=== PATIENT | female | born 1990 | race African-American/Black ===

== ENCOUNTER 2017-01-26 11:52 | Inpatient (IN) | payer OTHER ==
[~2017-01-26] VITALS: Ht 165.1 cm; Wt 86.2 kg
--- NOTE | 2017-01-26 12:38 | Emergency Room Report ---
History of Present Illness General Chief Complaint: Skin Rash/Abscess Source: Patient Present Illness [facility] The patient is a 26-year-old female with a 10 year history of hidradenitis superacute the presenting for the same complaint. The patient was seen by Dr. Cantu and told to come to the ER in order to obtain pre-op evaluation for tomorrow's surgery. The patient does admit to a clear to yellow discharge from multiple areas including both underarms, groin, and rectum. She denies any pain at this time. She denies any other symptoms including N, V, F, chills, BETH , dizziness, abdominal pain, CP, SOB, dysuria, hematuria, diarrhea, constipation Allergies: Coded Allergies: No Known Allergies (Unverified , 01/26/17) Patient History Past Medical History: see triage record Pertinent Family History: none Last Menstrual Period: 01/12/17 Now: No Reviewed Nursing Documentation: PMH: Agreed, PSxH: Agreed Review of Systems All Other Systems: negative except mentioned in HPI Physical Exam Vital Signs Date Time Temp Pulse Resp B/P Pulse Ox O2 Delivery O2 Flow Rate FiO2 01/26/17 12:02 98.4 88 15 101/62 100 Room Air Sp02 EP Interpretation: reviewed, normal General Appearance: no apparent distress, alert, GCS 15, non-toxic Head: normocephalic, atraumatic Eyes: bilateral eye PERRL, bilateral eye normal inspection ENT: hearing grossly normal, normal pharynx, no angioedema, normal voice Neck: full range of motion, supple/symm/no masses Respiratory: chest non-tender, lungs clear, normal breath sounds, no wheezing, speaking full sentences Cardiovascular #1: regular rate, rhythm, no edema Gastrointestinal: normal bowel sounds, non tender, soft, non-distended, no guarding, no rebound Rectal: other - multiple tender nodules with clear to yellow drainage Genitourinary: no CVA tenderness, other - External vaginal swelling with multiple tender nodules surrounded by erythema Musculoskeletal: back normal, gait/station normal, normal range of motion, non- tender Neurologic: alert, oriented x3, responsive, motor strength/tone normal, sensory intact, normal gait, speech normal Psychiatric: judgement/insight normal, memory normal, mood/affect normal, no suicidal/homicidal ideation Skin: normal turgor, rash - multiple tender nodules surrounded by erythema with clear to yellow drainage of bilat axilla, L breast, inguinal region, and dee-anal region Medical Decision Making PA Attestation Dr. Cassidy is my supervising physician. Patient management was discussed with my supervising physician Diagnostic Impression: Primary Impression: Hidradenitis suppurativa ER Course The patient is a 26-year-old female presenting for hydradenitis suppurativa Ddx considered include but not limited to hydradenitis suppurativa, abscess, cellulitis PE: vitals WNL. NAD multiple tender nodules surrounded by erythema with clear to yellow drainage of bilat axilla, L breast, inguinal region, and dee-anal region Dr. Cassidy has spoken with Dr. Charles who will be admitting this patient. Labs have been ordered including CBC, CMP, coags, type and screen. All unremarkable. Blood cultures pending. She is started on ancef in the ER She will NPO at midnight. She is now complaining of lower back and leg pain due to sciatica. She is given morphine and feels better. She will be admitted in stable condition. EKG Diagnostic Results Rate: normal Rhythm: NSR ST Segments: no acute changes ASA given to the pt in ED: No PA Scribe Text EKG was reviewed and read with my supervising physician. No acute ST segment changes are seen. Normal rate and rhythm. No acute changes. Chest X-Ray Diagnostic Results EP Interpretation: Yes Findings: no consolidation, no effusion, no pneumothorax, no acute cardiopulmonary disease Number of Views: 1 PA Scribe Text I am acting as scribe for my supervising physician. My supervising physician's interpretation of the chest xrays are there is no consolidation, no effusion, no acute cardiopulmonary disease, no pneumothorax Last Vital Signs Date Time Temp Pulse Resp B/P Pulse Ox O2 Delivery O2 Flow Rate FiO2 01/26/17 12:02 98.4 88 15 101/62 100 Room Air Status: improved Disposition: ADMITTED INPATIENT Condition: Stable PATTI FROST Jan 26, 2017 12:38
[2017-01-26 13:02] LABS: BASOPHILS % (AUTO) 0.7 % (0.0-2.0); EOSINOPHILS % (AUTO) 0.4 % (0.0-3.0); MEAN CORPUSCULAR HEMOGLOBIN 27.2 PG (27.0-31.0); MEAN CORPUSCULAR HGB CONC 32.7 G/DL (32.0-36.0); MEAN CORPUSCULAR VOLUME 83 FL (80-99); MEAN PLATELET VOLUME 7.2 FL (6.5-10.1); NEUTROPHILS % (AUTO) 73.8 % (45.0-75.0); PLATELET COUNT 357 K/UL (150-450); RED BLOOD COUNT 4.85 M/UL (4.20-5.40); RED CELL DISTRIBUTION WIDTH 13.4 % (11.6-14.8); WHITE BLOOD COUNT 10.6 K/UL (4.8-10.8)
[2017-01-26 13:04] LABS: APPEARANCE,URINE SLIGHTLY CLOUDY; KETONES,URINE 1+ (NEGATIVE); LEUKOCYTE ESTERASE ,URINE 1+ (NEGATIVE); NITRITE,URINE NEGATIVE (NEGATIVE); PH,URINE 6 (4.5-8.0); PROTEIN,URINE 1+ (NEGATIVE); UROBILINOGEN,URINE 1 MG/DL (0.0-1.0)
[2017-01-26 13:11] LABS: PROTHROMBIN TIME 10.7 SEC (9.30-11.50)
[2017-01-26 13:16] LABS: BACTERIA,URINE FEW /HPF; SQUAMOUS EPITHELIAL CELL,UR MODERATE /LPF (NONE/OCC)
[2017-01-26 13:20] LABS: ALANINE AMINOTRANSFERASE 10 U/L (3-33); ANION GAP 16 (5-15); ASPARTATE AMINO TRANSFERASE 14 U/L (5-40); CALCIUM 10.2 mg/dL (8.6-10.2); CARBON DIOXIDE 26 mEQ/L (20-30); CHLORIDE 97 mEQ/L (98-107); CREATININE 0.8 mg/dL (0.5-0.9); GLOMERULAR FILTRATION RATE > 60 mL/min (>60); HEMOLYSIS 0; POTASSIUM 3.3 mEQ/L (3.4-4.9); SODIUM 139 mEQ/L (135-145)
[2017-01-26] MEDS ORDERED: Morphine Sulfate 4mg/ml Inj IVP ONE ×2 (13:45→16:00)
--- NOTE | 2017-01-26 13:57 | Diagnostic Imaging Report ---
Indication: Cough Technique: One view of the chest Comparison: none Findings: Lungs and pleural spaces are clear. Heart size is normal. Impression: No acute process
[2017-01-26] MEDS ORDERED: ceFAZolin sod 1 GM in D5W 55 ML IVPB SCH (14:00)
[2017-01-26 15:44] VITALS: BP 99/54
[2017-01-26] MEDS ORDERED: LORazepam Inj 2mg/ml 1ml IV PRN (17:15)
[2017-01-26] MEDS ORDERED: Morphine Sulfate 2mg/ml Inj IVP PRN (17:15)
[2017-01-26] MEDS ORDERED: Miralax 17gm pkt ORAL PRN (17:15)
[2017-01-26] MEDS ORDERED: Mylanta II UD 30ml ORAL PRN (17:15)
[2017-01-26] MEDS ORDERED: Morphine Sulfate 4mg/ml Inj IVP PRN (17:15)
[2017-01-26] MEDS ORDERED: Milk of Magnesia 30ml Ud ORAL PRN (17:15)
--- NOTE | 2017-01-26 17:42 | History and Physical ---
History of Present Illness General Date patient seen: Jan 26, 2017 Time patient seen: 17:38 Reason for Hospitalization: Skin Rash/Abscess Present Illness HPI 26 y/o female with hx of hidradenitis, s/p previous surgery. Pt has multiple abscess in the bilateral axillae and groin region. She has tried multiple PO abx and pain meds and has not been able to get much relief, she presents to the ER due to intractable pain. No fevers/chills. She is able to exercise, without any chest pain or dyspnea, no other medical conditions, no chronic medications. Allergies: Coded Allergies: No Known Allergies (Unverified , 01/26/17) Patient History History Provided By: Patient Healthcare decision maker Resuscitation status Advanced Directive on File Family History Family History: Patient reports no known family medical history. Social History Social History: (1) No significant social history Review of Systems ROS Narrative CONSTITUTIONAL: No weight loss, fever, chills, weakness or fatigue. HEENT: Eyes: No visual loss, blurred vision, double vision or yellow sclerae. Ears, Nose, Throat: No hearing loss, sneezing, congestion, runny nose or sore throat. SKIN: No rash or itching. CARDIOVASCULAR: No chest pain, chest pressure or chest discomfort. No palpitations or edema. RESPIRATORY: No shortness of breath, cough or sputum. GASTROINTESTINAL: No anorexia, nausea, vomiting or diarrhea. No abdominal pain or blood. NEUROLOGICAL: No headache, dizziness, syncope, paralysis, ataxia, numbness or tingling in the extremities. No change in bowel or bladder control. MUSCULOSKELETAL: + axillary pain bilateral and +groin pain HEMATOLOGIC: No anemia, bleeding or bruising. LYMPHATICS: No enlarged nodes. No history of splenectomy. PSYCHIATRIC: No history of depression or anxiety. ENDOCRINOLOGIC: No reports of sweating, cold or heat intolerance. No polyuria or polydipsia. ALLERGIES: No history of asthma, hives, eczema or rhinitis. Physical Exam Physical Exam Narrative General: alert, cooperative, no distress, appears stated age Head: normocephalic, without obvious abnormality, atraumatic Eyes: conjunctivae/corneas clear. PERRL, EOM's intact Throat: lips, mucosa, and tongue normal. MMM Neck: supple, symmetrical, trachea midline, and no JVD Lungs: clear to auscultation bilaterally Heart: regular rate and rhythm, S1, S2 normal, no murmur, click, rub or gallop Abdomen: soft, non-tender, non-distended, bowel sounds normal; no masses or organomegaly Extremities: + induration, +tenderness to palpation, +gross lesions bilateral axillae Pulses: 2+ and symmetric Skin: skin color, texture, turgor normal; no rashes or lesions Neurologic: grossly normal, no focal deficits Last 24 Hour Vital Signs Date Time Temp Pulse Resp B/P Pulse Ox O2 Delivery O2 Flow Rate FiO2 01/26/17 15:44 97.8 78 14 99/54 98 Room Air 01/26/17 14:12 98.4 01/26/17 12:02 98.4 88 15 101/62 100 Room Air Laboratory Tests Test 01/26/17 12:37 01/26/17 12:41 White Blood Count 10.6 K/UL (4.8-10.8) Red Blood Count 4.85 M/UL (4.20-5.40) Hemoglobin 13.2 G/DL (12.0-16.0) Hematocrit 40.4 % (37.0-47.0) Mean Corpuscular Volume 83 FL (80-99) Mean Corpuscular Hemoglobin 27.2 PG (27.0-31.0) Mean Corpuscular Hemoglobin Concent 32.7 G/DL (32.0-36.0) Red Cell Distribution Width 13.4 % (11.6-14.8) Platelet Count 357 K/UL (150-450) Mean Platelet Volume 7.2 FL (6.5-10.1) Neutrophils (%) (Auto) 73.8 % (45.0-75.0) Lymphocytes (%) (Auto) 20.0 % (20.0-45.0) Monocytes (%) (Auto) 5.0 % (1.0-10.0) Eosinophils (%) (Auto) 0.4 % (0.0-3.0) Basophils (%) (Auto) 0.7 % (0.0-2.0) Prothrombin Time 10.7 SEC (9.30-11.50) Prothromb Time International Ratio 1.0 (0.9-1.1) Activated Partial Thromboplast Time 32 SEC (23-33) Sodium Level 139 mEQ/L (135-145) Potassium Level 3.3 mEQ/L (3.4-4.9) L Chloride Level 97 mEQ/L (98-107) L Carbon Dioxide Level 26 mEQ/L (20-30) Anion Gap 16 (5-15) H Blood Urea Nitrogen 5 mg/dL (7-23) L Creatinine 0.8 mg/dL (0.5-0.9) Estimat Glomerular Filtration Rate > 60 mL/min (>60) Glucose Level 95 mg/dL (74-106) Calcium Level 10.2 mg/dL (8.6-10.2) Total Bilirubin 0.4 mg/dL (0.0-1.2) Aspartate Amino Transf (AST/SGOT) 14 U/L (5-40) Alanine Aminotransferase (ALT/SGPT) 10 U/L (3-33) Alkaline Phosphatase 86 U/L (35-104) Total Protein 9.0 g/dL (6.6-8.7) H Albumin 4.5 g/dL (3.5-5.2) Globulin 4.5 g/dL Albumin/Globulin Ratio 1.0 (1.0-2.7) Urine Color Yellow Urine Appearance Slightly cloudy Urine pH 6 (4.5-8.0) Urine Specific [place] 1.025 (1.005-1.035) Urine Protein 1+ (NEGATIVE) H Urine Glucose (UA) Negative (NEGATIVE) Urine Ketones 1+ (NEGATIVE) H Urine Occult Blood 3+ (NEGATIVE) H Urine Nitrite Negative (NEGATIVE) Urine Bilirubin Negative (NEGATIVE) Urine Urobilinogen 1 MG/DL (0.0-1.0) H Urine Leukocyte Esterase 1+ (NEGATIVE) H Urine RBC 5-10 /HPF (0 - 2) H Urine WBC 2-4 /HPF (0 - 2) Urine Squamous Epithelial Cells Moderate /LPF (NONE/OCC) H Urine Bacteria Few /HPF (NONE) Urine HCG, Qualitative Negative Height (Feet): 5 Height (Inches): 7.00 Weight (Pounds): 190 Medications Current Medications Medications (Trade) Dose Ordered Sig/Eduarda Route PRN Reason Start Time Stop Time Status Last Admin Dose Admin Acetaminophen (Tylenol) 650 mg Q4H PRN ORAL Mild Pain (Pain Scale 1-3) 01/26/17 17:15 02/25/17 17:14 UNV Acetaminophen (Tylenol) 650 mg Q4H PRN ORAL fever 01/26/17 17:15 02/25/17 17:14 UNV Al Hydroxide/Mg Hydroxide (Mylanta II) 30 ml Q6H PRN ORAL dyspepsia 01/26/17 17:15 02/25/17 17:14 UNV Bisacodyl (Dulcolax) 10 mg HSPRN PRN RECTAL Constipation 01/26/17 17:15 02/25/17 17:14 UNV Cefazolin Sodium (Ancef) 1 gm Q8HR IVP 01/26/17 22:00 02/02/17 21:59 UNV Cefazolin Sodium 1 gm/Dextrose 55 ml @ 110 mls/hr Q8HR IVPB 01/26/17 14:00 02/02/17 13:59 01/26/17 13:07 Dextrose (Dextrose 50%) STAT PRN IV Hypoglycemia 01/26/17 17:15 02/25/17 17:14 UNV Dextrose/Sodium Chloride (D5ns) 1,000 ml @ 50 mls/hr Q20H IV 01/26/17 18:02 02/25/17 18:01 UNV Diphenhydramine HCl (Benadryl) 25 mg Q6H PRN ORAL Itching/Pruritis 01/26/17 17:15 02/25/17 17:14 UNV Docusate Sodium (Colace) 100 mg EVERY 12 HOURS ORAL 01/26/17 21:00 02/25/17 20:59 UNV Lorazepam (Ativan 2mg/ml 1ml) 0.5 mg Q4H PRN IV For Anxiety 01/26/17 17:15 02/02/17 17:14 UNV Magnesium Hydroxide (Mom) 30 ml HSPRN PRN ORAL Constipation 01/26/17 17:15 02/25/17 17:14 UNV Morphine Sulfate (Morphine Sulfate) 2 mg Q4HR PRN IVP Moderate Pain (Pain Scale 4-6) 01/26/17 17:15 02/02/17 17:14 UNV Morphine Sulfate (Morphine Sulfate) 4 mg Q4HR PRN IVP Severe Pain (Pain Scale 7-10) 01/26/17 17:15 02/02/17 17:14 UNV Ondansetron HCl (Zofran) 4 mg Q6H PRN IVP Nausea & Vomiting 01/26/17 17:15 02/25/17 17:14 UNV Polyethylene Glycol (Miralax) 17 gm HSPRN PRN ORAL Constipation 01/26/17 17:15 02/25/17 17:14 UNV Temazepam (Restoril) 15 mg HSPRN PRN ORAL Insomnia 01/26/17 17:15 02/02/17 17:14 UNV Assessment/Plan Problem List: (1) Abscess Assessment & Plan: Admit to inpatient Check blood cx Start IV abx Pain control Supp care If patient is required to have surgery, based on the patient's medical history, and other available ancillary data, the patient is a LOW risk for an INTERMEDIATE risk procedure. Per the most recent ACC/AHA guidelines, the patient does not need any further cardiopulmonary testing prior to the procedure and there do not appear to be any clear medical contraindications to proceeding with the proposed procedure. A total of 32 mins of additional time was spent with this patient, care coordination and counseling, in addition to the face to face time with the patient. ICD Codes: L02.91 - Cutaneous abscess, unspecified SNOMED: [id number] GADIEL BLOCK Jan 26, 2017 17:42
[2017-01-26] MEDS ORDERED: NKM (17:45)
[2017-01-26 18:00] VITALS: BP 123/68
[2017-01-26] MEDS: D5NS 1,000 ML IV SCH (19:00)
[2017-01-26] MEDS: Docusate 100mg cap ORAL SCH (21:46)
[2017-01-26] MEDS: ceFAZolin 1gm in D5W 55ml IVPB SCH (22:00)
[2017-01-27] VITALS (14 sets, daily range): BP systolic 108–150; BP diastolic 50–74
[2017-01-27] MEDS: ceFAZolin 1gm in D5W 55ml IVPB SCH (06:27)
[2017-01-27] MEDS ORDERED: Lidocaine 1% 10mg/ml/Epi 0.005mg/ml 30ml vial INJ ONE (06:43)
[2017-01-27] MEDS ORDERED: Bacitracin 50000 Units Vial ONE (06:43)
[2017-01-27] MEDS ORDERED: EPINEPHrine 1mg/1ml Amp ONE (06:43)
--- NOTE | 2017-01-27 06:43 | Pre-Procedure Note/Attestation ---
Pre-Procedure Note/Attestation Complete Prior to Procedure Planned Procedure: bilateral Procedure Narrative: Bilateral axillary and right breast debridement with flap elevation Attestation I attest that I discussed the nature of the procedure; its benefits; risks and complications; and alternatives (and the risks and benefits of such alternatives ), prior to the procedure, with the patient (or the patient's legal customer assistance representative). I attest that, if there was a reasonable possibility of needing a blood transfusion, the patient (or the patient's legal customer assistance representative) was given the [facility] standardized written summary, pursuant to the [place] Blood Safety Act ([place] Health and Safety Code # 1645, as amended). I attest that I re-evaluated the patient just prior to the surgery and that there has been no change in the patient's H&P, except as documented below: SADAF HICKS Jan 27, 2017 06:43
--- NOTE | 2017-01-27 06:44 | Operative Note - PDOC ---
Operative Note Operative Note Pre-op Diagnosis: Bilateral infected axillary and right breast masses Surgeon: Pepe Sand Bobber: Tyrone Anesthesia: general Specimen: yes Complications: none Condition: stable Estimated Blood Loss: minimal Implant(s) used?: No SADAF HICKS Jan 27, 2017 06:44
[2017-01-27] MEDS ORDERED: Metoclopramide 10mg/2ml Inj IVP PRN ×2 (06:45→08:15)
[2017-01-27] MEDS ORDERED: PCA HYDROmorphone 1mg/ml 30 ML IV PRN (06:45)
[2017-01-27] MEDS ORDERED: Zolpidem 5mg tab ORAL PRN (06:45)
[2017-01-27] MEDS ORDERED: Rate Change PCA 1 Each MISC PRN (06:45)
[2017-01-27] MEDS ORDERED: Propofol 10mg/ml 20ml IV ONE (07:00)
[2017-01-27] MEDS ORDERED: NS Irrig 1000ml ONE (07:00)
[2017-01-27] MEDS ORDERED: Nimbex 2mg/ml Inj 10ML IVP ONE (07:00)
[2017-01-27] MEDS ORDERED: Sterile Water Irrig 1000ml IRRIG ONE (07:00)
[2017-01-27] MEDS ORDERED: Morphine Sulfate 10mg/ml Inj ONE (07:00)
[2017-01-27] MEDS ORDERED: Succinylcholine 20mg/ml 10ml vial ONE (07:00)
[2017-01-27] MEDS: PCA shift volume MISC SCH ×2 (07:00→19:18)
[2017-01-27] MEDS ORDERED: Ketorolac 30mg Inj ONE (07:00)
[2017-01-27] MEDS ORDERED: Midazolam 2mg/2ml Inj ONE (07:00)
[2017-01-27] MEDS ORDERED: fentaNYL 100 mcg/2 mL IV ONE (07:00)
[2017-01-27] MEDS ORDERED: NS Irrig 1000ml IRRIG ONE (07:44)
[2017-01-27] MEDS ORDERED: LR 1000ml 1,000 ML IVLG SCH (08:08)
--- NOTE | 2017-01-27 08:08 | Anethesia Preoperative Eval ---
Anesthesia Pre-op PMH/ROS General Date of Evaluation: Jan 27, 2017 Time of Evaluation: 06:58 Anesthesiologist: Kiah ASA Score: ASA 2 Mallampati Score Class I : Soft palate, uvula, fauces, pillars visible Class II: Soft palate, uvula, fauces visible Class III: Soft palate, base of uvula visible Class IV: Only hard plate visible Mallampati Classification: Class II Surgeon: Pepe Diagnosis: Recurrent HS Surgical Procedure: Excision of bilateral axillary hydradenitis Anesthesia History: none Family History: no anesthesia problems Allergies: Coded Allergies: No Known Allergies (Unverified , 01/26/17) Medications: see eMAR Past Medical History Cardiovascular: Denies: CAD, HTN, [place], arrhythmia, other, valve dz Pulmonary: Denies: COPD, [place], asthma, other Gastrointestinal/Genitourinary: Reports: GERD - mild, Denies: CRI, ESRD, other Neurologic/Psychiatric: Reports: depression/anxiety, Denies: CVA, TIA, dementia, other Endocrine: Denies: DM, hypothyroidism, other, steroids HEENT: Denies: [place] (L), [place] (R), cataract (L), cataract (R), glaucoma, other Hematology/Immune: Denies: DVT, anemia, bleeding disorder, other Musculoskeletal/Integumentary: Reports: other - recurrent HS, Denies: DDD, DJD, OA, RA, edema PMH Narrative: as above PSxH Narrative: Lap. cholecystectomy, I&D for HS Anesthesia Pre-op Phys. Exam Physician Exam Last Vital Signs Date Time Temp Pulse Resp B/P Pulse Ox O2 Delivery O2 Flow Rate FiO2 01/27/17 04:00 98.1 71 19 128/69 97 Room Air Constitutional: NAD Neurologic: CN 2-12 intact Cardiovascular: RRR, no M/R/G Respiratory: CTA Gastrointestinal: S/NT/ND Airway Exam Mallampati Score: Class II MO: full Neck: flexible ROM: full Teeth: intact Dentures: no lower, no upper Anesthesia Pre-op A/P Labs Hematology Test 01/26/17 12:37 White Blood Count 10.6 K/UL (4.8-10.8) Red Blood Count 4.85 M/UL (4.20-5.40) Hemoglobin 13.2 G/DL (12.0-16.0) Hematocrit 40.4 % (37.0-47.0) Mean Corpuscular Volume 83 FL (80-99) Mean Corpuscular Hemoglobin 27.2 PG (27.0-31.0) Mean Corpuscular Hemoglobin Concent 32.7 G/DL (32.0-36.0) Red Cell Distribution Width 13.4 % (11.6-14.8) Platelet Count 357 K/UL (150-450) Mean Platelet Volume 7.2 FL (6.5-10.1) Neutrophils (%) (Auto) 73.8 % (45.0-75.0) Lymphocytes (%) (Auto) 20.0 % (20.0-45.0) Monocytes (%) (Auto) 5.0 % (1.0-10.0) Eosinophils (%) (Auto) 0.4 % (0.0-3.0) Basophils (%) (Auto) 0.7 % (0.0-2.0) Coagulation Test 01/26/17 12:37 Prothrombin Time 10.7 SEC (9.30-11.50) Prothromb Time International Ratio 1.0 (0.9-1.1) Activated Partial Thromboplast Time 32 SEC (23-33) Chemistry Test 01/26/17 12:37 Sodium Level 139 mEQ/L (135-145) Potassium Level 3.3 mEQ/L (3.4-4.9) L Chloride Level 97 mEQ/L (98-107) L Carbon Dioxide Level 26 mEQ/L (20-30) Anion Gap 16 (5-15) H Blood Urea Nitrogen 5 mg/dL (7-23) L Creatinine 0.8 mg/dL (0.5-0.9) Estimat Glomerular Filtration Rate > 60 mL/min (>60) Glucose Level 95 mg/dL (74-106) Calcium Level 10.2 mg/dL (8.6-10.2) Total Bilirubin 0.4 mg/dL (0.0-1.2) Aspartate Amino Transf (AST/SGOT) 14 U/L (5-40) Alanine Aminotransferase (ALT/SGPT) 10 U/L (3-33) Alkaline Phosphatase 86 U/L (35-104) Total Protein 9.0 g/dL (6.6-8.7) H Albumin 4.5 g/dL (3.5-5.2) Globulin 4.5 g/dL Albumin/Globulin Ratio 1.0 (1.0-2.7) Urine Test Test 01/26/17 12:41 Urine HCG, Qualitative Negative Risk Assessment & Plan Assessment: ASA 2 Plan: GA with ETT PONV prevention Status Change Before Surgery: No Pre-Antibiotics Drug: Ancef 2 gr. Given Within 1 Hr of Incision: Yes Time Given: 07:42 SHANIA MATTA M.D. Jan 27, 2017 08:08
[2017-01-27] MEDS ORDERED: DiphenhydrAMINE 50mg/ml Inj IVP PRN (08:15)
[2017-01-27] MEDS ORDERED: fentaNYL 100 mcg/2 mL IV PRN (08:15)
[2017-01-27] MEDS ORDERED: Ketorolac 30mg Inj IV PRN (08:15)
[2017-01-27] MEDS ORDERED: Meperidine 25mg/0.5ml Inj IV PRN (08:15)
[2017-01-27] MEDS ORDERED: Midazolam 2mg/2ml Inj IVP PRN (08:15)
[2017-01-27] MEDS: Docusate 100mg cap ORAL SCH ×2 (09:00→21:52)
[2017-01-27] MEDS ORDERED: Heparin 5000 units/ml inj SUBQ SCH (09:00)
--- NOTE | 2017-01-27 09:42 | Pre-Procedure Note/Attestation ---
Pre-Procedure Note/Attestation Indications for Procedure Pre-Operative Diagnosis: Bilateral infected axillary and left breast masses Attestation I attest that I discussed the nature of the procedure; its benefits; risks and complications; and alternatives (and the risks and benefits of such alternatives ), prior to the procedure, with the patient (or the patient's legal client service representative). I attest that, if there was a reasonable possibility of needing a blood transfusion, the patient (or the patient's legal client service representative) was given the [facility] standardized written summary, pursuant to the [employer] Blood Safety Act ([place] Health and Safety Code # 1645, as amended). I attest that I re-evaluated the patient just prior to the surgery and that there has been no change in the patient's H&P, except as documented below: SADAF HICKS Jan 27, 2017 09:42
--- NOTE | 2017-01-27 09:50 | Immediate Post-Op Evaluation ---
Immediate Post-Op Evalulation Immediate Post-Op Evalulation Procedure: Excision of bilateral axillary HS Date of Evaluation: Jan 27, 2017 Time of Evaluation: 09:48 IV Fluids: 1200 Blood Products: none Estimated Blood Loss: 50 Urinary Output: none Blood Pressure Systolic: 151 Blood Pressure Diastolic: 64 Pulse Rate: 71 Respiratory Rate: 20 O2 Sat by Pulse Oximetry: 99 Temperature (Fahrenheit): 97.4 Pain Score (1-10): 2 Nausea: No Vomiting: No Complications none Patient Status: reacts, patent, extubated, none Hydration Status: adequate SHANIA MATTA M.D. Jan 27, 2017 09:50
[2017-01-27] MEDS ORDERED: Oxycodone/Acetaminophen 5-325 ORAL PRN (13:00)
[2017-01-27 13:15] LABS: BASOPHILS % (AUTO) 0.4 % (0.0-2.0); EOSINOPHILS % (AUTO) 0.6 % (0.0-3.0); LYMPHOCYTES % (AUTO) 12.4 % (20.0-45.0); MEAN CORPUSCULAR HEMOGLOBIN 26.4 PG (27.0-31.0); MEAN CORPUSCULAR HGB CONC 31.7 G/DL (32.0-36.0); MEAN CORPUSCULAR VOLUME 83 FL (80-99); MEAN PLATELET VOLUME 6.9 FL (6.5-10.1); MONOCYTES % (AUTO) 5.1 % (1.0-10.0); NEUTROPHILS % (AUTO) 81.4 % (45.0-75.0); PLATELET COUNT 277 K/UL (150-450); RED BLOOD COUNT 4.18 M/UL (4.20-5.40); RED CELL DISTRIBUTION WIDTH 13.4 % (11.6-14.8); WHITE BLOOD COUNT 12.6 K/UL (4.8-10.8)
[2017-01-27 13:28] LABS: ANION GAP 13 (5-15); CALCIUM 8.8 mg/dL (8.6-10.2); CARBON DIOXIDE 25 mEQ/L (20-30); CHLORIDE 104 mEQ/L (98-107); CREATININE 0.7 mg/dL (0.5-0.9); GLOMERULAR FILTRATION RATE > 60 mL/min (>60); HEMOLYSIS 0; SODIUM 142 mEQ/L (135-145)
--- NOTE | 2017-01-27 14:30 | Consultation ---
DATE OF CONSULTATION: 01/27/2017 ADMITTING PHYSICIAN: Radha Charles M.D. REASON FOR CONSULTATION: Bilateral infected axillary and left infected breast tissue. HISTORY OF PRESENT ILLNESS: This is a 26-year-old female, admitted to the emergency room with bilateral axillary pain and left breast pain associated with drainage from infected tissue. She was started on IV antibiotics and on evaluation by me, I felt that she is an appropriate candidate for surgical debridement and reconstruction. PAST MEDICAL HISTORY: Significant for hidradenitis. PAST SURGICAL HISTORY: Previous incision and drainage. ALLERGIES: None. MEDICATIONS: Occasional antibiotic use. PHYSICAL EXAMINATION: GENERAL: The patient is alert and oriented x3. HEART: Regular rate and rhythm. ABDOMEN: Soft, nontender, and nondistended. EXTREMITIES: Examination of the groin reveals multiple infected abscesses with a bilateral groin. Examination of the chest and axilla reveals bilateral infected axillary tissue with infected lower left breast tissue. ASSESSMENT AND PLAN: This is a 26-year-old female with bilateral axillary and left breast infected tissue. She will require staged debridement of the tissues with elevation of flaps. The reason for the staging will be the fact that she has got infection present within the wound and a simultaneous or immediate reconstruction would not be prudent, as such the flaps will be elevated at the first operation and will then be transposed into the defect within 72 hours. The patient understands the plan and agrees to proceed. Corry Cantu M.D. DR: LYNSEY JOB#: [id number] CC:
[2017-01-27] MEDS: D5NS 1,000 ML IV SCH ×2 (14:45→23:58)
[2017-01-27] MEDS: ceFAZolin sod 1 GM in D5W 55 ML IVPB SCH ×2 (14:45→23:55)
--- NOTE | 2017-01-27 14:45 | Operative Note - Dictated ---
DATE OF OPERATION: 01/27/2017 PREOPERATIVE DIAGNOSES: 1. Bilateral infected axillary tissue. 2. Infected lower left breast tissue. POSTOPERATIVE DIAGNOSES: 1. Bilateral infected axillary tissue. 2. Infected lower left breast tissue. PROCEDURES: 1. Radical excision of left axillary infected mass. 2. Elevation of a left sided thoracodorsal artery based lateral chest wall flap. 3. Radical excision of right axillary infected tissue mass. 4. Elevation of the thoracodorsal artery based lateral chest wall flap on the right side. 5. Radical excision of left breast inferior pole tissue. 6. Elevation of a Lanre chest wall flap on the left side for staged closure of left breast inferior pole wound. SURGEON: Corry Cantu M.D. CABINET PROFESSIONAL: Marshall Werner M.D.. ANESTHESIA: General. DRAINS: Included bilateral axillary wound VACs. ESTIMATED BLOOD LOSS: Minimal. DISPOSITION: Stable to the recovery room. INDICATIONS FOR SURGERY: This is a 26-year-old female, admitted to the emergency room from bilateral infected axillary and groin tissues with associated drainage from left breast tissue in the inferior pole of the breast. She was examined by me and I felt that he was appropriate candidate for a staged treatment with debridement and excision and followed by reconstruction. She understood the risks and benefits of surgery and agreed to proceed. DETAILS OF THE OPERATION: The patient was brought to the operating room and laid in the supine position on the operating table. Her bilateral axillae and chest were prepped and draped in a sterile and usual fashion. Preoperatively, the areas that required excision were delineated with a marking pen and the corresponding thoracodorsal artery lateral chest wall flaps were designed on both sides. We began on the left, by first injecting 10 mL of lidocaine with epinephrine into the base of the left axillary infected tissue and then a #15 blade was used after a 5 minutes elapsed to perform the skin incision around the axillary tissue with radical excision of the mass all the way down to the axillary fascia keeping the nerves and other vital structures protected from electrocautery. Once the excision was completed, the defect that resulted was approximately 8 x 8 cm and was not amenable to primary closure. As such, an appropriate size flap had to be designed at the lateral chest wall. This was designed based on the pivot point and allowed for full coverage of the flap following design of the flap. A marking pen was used to delineate the extent of the flap and a #10 blade was then used to make the skin incision and mobilize the flap elevating it off of the latissimus dorsi muscle on that side and completely freeing it from the attachments while preserving the pedicle. Upon doing so, the flap to be completely transposed into the defect and the donor site to be closed without difficulty. We then turned our attention to the contralateral infected right axillary tissue mass. Marking pen was used to delineate the extent of this as well with a corresponding lateral chest wall flap designed as was done on the other side. After injection of lidocaine into the base of the infected tissue, a #15 blade was then again used to excise the skin around the axillary tissue with electrocautery used to radical excise the mass from the axillary fascia, once again preserving all the vital structures. The incisions were then made to elevate the thoracodorsal artery base lateral chest wall flap taken off the latissimus dorsi muscle and upon full release that could be transposed easily into the defect, which on this side measured 9 x 8 cm. Following this, both wounds were copiously irrigated with pulse lavage. The wounds were then packed with lidocaine with epinephrine soaked gauze. We then turned our attention to the lower pole of the left breast, this area measured approximately 8 x 3 centimeters in total and was the inferior pole of the breast by the IMF with inframammary crease. This area was injected with lidocaine with epinephrine as well and after five minutes elapsed, a #10 blade was used to incise around the mass radically excising it at all way down to the level of the left upper chest wall. It was noted that this defect would not be amenable to primary closure. As such, a corresponding ipsilateral Lanre flap was elevated off of the chest wall with perforators off of the superior epigastric artery perfusing this tissue and it was noted that upon full mobilization of this flap with medial and lateral relaxing incisions at the deep level would allow for full tension-free closure of the defect. Following elevation of this flap, the wounds were then all copiously irrigated once again and after achieving hemostasis, the wounds were partially closed at all three sites and wound VACs were then applied to all three sites and using a Y-connector single wound VAC device set to 175 millimeters of height continuous suction was applied and it was noted to be working. Following this, the patient will be observed on IV antibiotics and wound VAC suction of the wound and the patient will be brought back on Monday for definitive flap inset and closure of all three wounds. Corry Cantu M.D. DR: LYNSEY JOB#: [id number] CC: SHYANN
--- NOTE | 2017-01-27 16:35 | General Progress Note ---
Assessment/Plan Problem List: (1) Abscess Assessment & Plan: s/p debridement of bilateral axillae f/u blood cx Cont IV abx Pain control Supp care If patient is required to have surgery, based on the patient's medical history, and other available ancillary data, the patient is a LOW risk for an INTERMEDIATE risk procedure. Per the most recent ACC/AHA guidelines, the patient does not need any further cardiopulmonary testing prior to the procedure and there do not appear to be any clear medical contraindications to proceeding with the proposed procedure. A total of 32 mins of additional time was spent with this patient, care coordination and counseling, in addition to the face to face time with the patient. ICD Codes: L02.91 - Cutaneous abscess, unspecified SNOMED: 045323339 Subjective Date patient seen: Jan 27, 2017 ROS Limited/Unobtainable: No Allergies: Coded Allergies: No Known Allergies (Unverified , 01/26/17) Subjective s/p debridement of bilateral axillae earlier today, without periop or postop complications. Denied chest pain or dyspnea, no n/v, postop pain well controlled. Objective Last 24 Hour Vital Signs Date Time Temp Pulse Resp B/P Pulse Ox O2 Delivery O2 Flow Rate FiO2 01/27/17 16:00 18 01/27/17 12:01 18 01/27/17 12:00 97.2 73 17 108/50 96 Room Air 01/27/17 11:31 18 01/27/17 11:06 96.8 85 17 143/65 98 Room Air 01/27/17 11:01 16 01/27/17 10:46 15 01/27/17 10:45 97.6 71 16 147/69 100 Nasal Cannula 2.0 01/27/17 10:37 97.6 01/27/17 10:31 15 01/27/17 10:30 69 16 148/68 100 Nasal Cannula 2.0 01/27/17 10:16 16 01/27/17 10:15 68 17 144/73 100 Nasal Cannula 2.0 01/27/17 10:07 16 01/27/17 10:02 67 16 131/60 100 Simple Mask 6.0 01/27/17 09:52 72 17 130/60 100 Simple Mask 6.0 01/27/17 09:52 72 16 130/60 100 Simple Mask 6.0 01/27/17 09:50 71 20 99 6/9/17 09:47 66 16 150/69 99 Simple Mask 6.0 01/27/17 09:47 66 15 150/69 99 Simple Mask 6.0 01/27/17 09:42 97.5 68 15 139/68 99 Simple Mask 6.0 01/27/17 09:42 97.5 68 15 139/68 99 Simple Mask 6.0 01/27/17 04:00 98.1 71 19 128/69 97 Room Air 01/27/17 00:00 97.9 69 19 124/71 97 Room Air 01/26/17 18:46 100 14 110/65 99 Room Air 01/26/17 18:00 98.0 67 20 123/68 98 Room Air 01/26/17 17:02 97.8 Intake and Output 01/26/17 01/27/17 19:00 07:00 Intake Total 1055 ml Balance 1055 ml Intake IV Total 1055 ml # Voids 1 Laboratory Tests 01/27/17 12:55: White Blood Count 12.6H, Red Blood Count 4.18L, Hemoglobin 11.0L, Hematocrit 34.7L, Mean Corpuscular Volume 83, Mean Corpuscular Hemoglobin 26.4L, Mean Corpuscular Hemoglobin Concent 31.7L, Red Cell Distribution Width 13.4, Platelet Count 277, Mean Platelet Volume 6.9, Neutrophils (%) (Auto) 81.4H, Lymphocytes (%) (Auto) 12.4L, Monocytes (%) (Auto) 5.1, Eosinophils (%) (Auto) 0.6, Basophils (%) (Auto) 0.4, Sodium Level 142, Potassium Level 4.0, Chloride Level 104, Carbon Dioxide Level 25, Anion Gap 13, Blood Urea Nitrogen 4L, Creatinine 0.7, Estimat Glomerular Filtration Rate > 60, Glucose Level 99, Calcium Level 8.8 Height (Feet): 5 Height (Inches): 7.00 Weight (Pounds): 190 Objective General: alert, cooperative, no distress, appears stated age Head: normocephalic, without obvious abnormality, atraumatic Eyes: conjunctivae/corneas clear. PERRL, EOM's intact Throat: lips, mucosa, and tongue normal. MMM Neck: supple, symmetrical, trachea midline, and no JVD Lungs: clear to auscultation bilaterally Heart: regular rate and rhythm, S1, S2 normal, no murmur, click, rub or gallop Abdomen: soft, non-tender, non-distended, bowel sounds normal; no masses or organomegaly Extremities: axillae dressings, c/d/i Pulses: 2+ and symmetric Skin: skin color, texture, turgor normal; no rashes or lesions Neurologic: grossly normal, no focal deficits GADIEL BLOCK Jan 27, 2017 16:35
[2017-01-28] VITALS (7 sets, daily range): BP systolic 113–141; BP diastolic 62–81
[2017-01-28] MEDS: PCA shift volume MISC SCH (07:00)
[2017-01-28] MEDS: ceFAZolin sod 1 GM in D5W 55 ML IVPB SCH ×2 (07:49→16:26)
[2017-01-28] MEDS: Docusate 100mg cap ORAL SCH ×2 (08:57→20:40)
[2017-01-28] MEDS: Heparin 5000 units/ml inj SUBQ SCH ×2 (09:04→20:41)
--- NOTE | 2017-01-28 09:14 | 48 Hour Post Anesthesia Eval ---
Post Anesthesia Evaluation Procedure: Excision of bilateral axillary HS Date of Evaluation: Jan 28, 2017 Time of Evaluation: 09:12 Blood Pressure Systolic: 136 0: 72 Pulse Rate: 68 Respiratory Rate: 22 Temperature (Fahrenheit): 97.6 O2 Sat by Pulse Oximetry: 99 Airway: patent Nausea: No Vomiting: No Pain Intensity: 3 Hydration Status: adequate Cardiopulmonary Status: stable Mental Status/LOC: patient returned to baseline Follow-up Care/Observations: n/a Post-Anesthesia Complications: none Follow-up care needed: N/A SHANIA MATTA M.D. Jan 28, 2017 09:14
--- NOTE | 2017-01-28 09:51 | General Progress Note ---
Progress Note Progress Note Pt seen and examined. She is now POD #1 and doing well. Wound vac in place and fxing. Plan for OR closure of Monday of bilateral axillary wounds SADAF HICKS Jan 28, 2017 09:51
--- NOTE | 2017-01-28 14:03 | General Progress Note ---
Assessment/Plan Problem List: (1) Abscess Assessment & Plan: s/p debridement of bilateral axillae POD#1 f/u blood cx Cont IV abx Pain control Supp care A total of 32 mins of additional time was spent with this patient, care coordination and counseling, in addition to the face to face time with the patient. ICD Codes: L02.91 - Cutaneous abscess, unspecified SNOMED: [id number] Subjective Date patient seen: Jan 28, 2017 Time patient seen: 14:03 ROS Limited/Unobtainable: No Allergies: Coded Allergies: No Known Allergies (Unverified , 01/26/17) Subjective s/p debridement of bilateral axillae POD#1, without periop or postop complications. Denied chest pain or dyspnea, no n/v, postop pain well controlled. Objective Last 24 Hour Vital Signs Date Time Temp Pulse Resp B/P Pulse Ox O2 Delivery O2 Flow Rate FiO2 01/28/17 11:54 97.1 64 20 137/78 99 Room Air 01/28/17 09:14 68 22 99 01/28/17 08:40 98.1 67 20 141/72 99 Nasal Cannula 2.0 01/28/17 08:00 20 01/28/17 06:46 72 126/81 01/28/17 04:00 97.9 51 20 141/67 100 Room Air 01/28/17 04:00 16 01/28/17 00:00 16 01/28/17 00:00 97.7 49 20 121/62 98 Room Air 01/27/17 20:00 97.9 64 18 142/70 99 Room Air 01/27/17 20:00 16 01/27/17 16:00 18 01/27/17 16:00 97.7 61 18 137/74 97 Room Air Intake and Output 01/27/17 01/28/17 19:00 07:00 Intake Total 1520 ml 560 ml Output Total 93 ml Balance 1427 ml 560 ml Intake Oral 120 ml IV Total 1400 ml 560 ml Output Emesis 3 ml Drainage Total 40 ml Estimated Blood Loss 50 ml # Voids 4 Height (Feet): 5 Height (Inches): 7.00 Weight (Pounds): 190 Objective General: alert, cooperative, no distress, appears stated age Head: normocephalic, without obvious abnormality, atraumatic Eyes: conjunctivae/corneas clear. PERRL, EOM's intact Throat: lips, mucosa, and tongue normal. MMM Neck: supple, symmetrical, trachea midline, and no JVD Lungs: clear to auscultation bilaterally Heart: regular rate and rhythm, S1, S2 normal, no murmur, click, rub or gallop Abdomen: soft, non-tender, non-distended, bowel sounds normal; no masses or organomegaly Extremities: axillae dressings, c/d/i Pulses: 2+ and symmetric Skin: skin color, texture, turgor normal; no rashes or lesions Neurologic: grossly normal, no focal deficits GADIEL BLOCK Jan 28, 2017 14:03
[2017-01-29] VITALS: BP 107/52
[2017-01-29] MEDS: ceFAZolin sod 1 GM in D5W 55 ML IVPB SCH ×3 (00:06→14:51)
[2017-01-29 04:00] VITALS: BP 123/76
[2017-01-29 08:00] VITALS: BP 129/69
[2017-01-29] MEDS: Docusate 100mg cap ORAL SCH ×2 (08:17→22:34)
[2017-01-29] MEDS: Heparin 5000 units/ml inj SUBQ SCH ×2 (08:21→22:35)
[2017-01-29 12:00] VITALS: BP 133/69
--- NOTE | 2017-01-29 13:41 | General Progress Note ---
Assessment/Plan Problem List: (1) Abscess Assessment & Plan: s/p debridement of bilateral axillae POD#2 f/u blood cx Cont IV abx Pain control Supp care A total of 32 mins of additional time was spent with this patient, care coordination and counseling, in addition to the face to face time with the patient. ICD Codes: L02.91 - Cutaneous abscess, unspecified SNOMED: [id number] Subjective Date patient seen: Jan 29, 2017 Time patient seen: 13:41 ROS Limited/Unobtainable: No Allergies: Coded Allergies: No Known Allergies (Unverified , 01/26/17) Subjective s/p debridement of bilateral axillae POD#2, without periop or postop complications. Denied chest pain or dyspnea, no n/v, postop pain well controlled. Objective Last 24 Hour Vital Signs Date Time Temp Pulse Resp B/P Pulse Ox O2 Delivery O2 Flow Rate FiO2 01/29/17 12:18 98.1 01/29/17 12:00 97.7 79 20 133/69 95 Room Air 01/29/17 08:00 98.1 84 17 129/69 97 Room Air 01/29/17 04:00 97.9 51 18 123/76 98 Room Air 01/29/17 00:00 97.7 62 18 107/52 96 Room Air 01/28/17 20:00 97.9 87 20 121/70 Room Air 01/28/17 16:05 97.9 65 20 113/72 99 Room Air Intake and Output 01/28/17 01/29/17 19:00 07:00 Intake Total 1230 ml Output Total 50 ml Balance 1230 ml -50 ml Intake Oral 1230 ml Drainage Total 50 ml # Voids 3 Height (Feet): 5 Height (Inches): 7.00 Weight (Pounds): 190 Objective General: alert, cooperative, no distress, appears stated age Head: normocephalic, without obvious abnormality, atraumatic Eyes: conjunctivae/corneas clear. PERRL, EOM's intact Throat: lips, mucosa, and tongue normal. MMM Neck: supple, symmetrical, trachea midline, and no JVD Lungs: clear to auscultation bilaterally Heart: regular rate and rhythm, S1, S2 normal, no murmur, click, rub or gallop Abdomen: soft, non-tender, non-distended, bowel sounds normal; no masses or organomegaly Extremities: axillae dressings, c/d/i Pulses: 2+ and symmetric Skin: skin color, texture, turgor normal; no rashes or lesions Neurologic: grossly normal, no focal deficits GADIEL BLOCK Jan 29, 2017 13:41
[2017-01-29 16:00] VITALS: BP 123/64
[2017-01-29 20:07] VITALS: BP 150/88
[2017-01-30] VITALS (12 sets, daily range): BP systolic 121–173; BP diastolic 63–83
[2017-01-30] MEDS: ceFAZolin sod 1 GM in D5W 55 ML IVPB SCH ×3 (00:32→16:32)
[2017-01-30 07:25] LABS: BASOPHILS % (AUTO) 0.7 % (0.0-2.0); EOSINOPHILS % (AUTO) 1.8 % (0.0-3.0); LYMPHOCYTES % (AUTO) 27.9 % (20.0-45.0); MEAN CORPUSCULAR HEMOGLOBIN 28.7 PG (27.0-31.0); MEAN CORPUSCULAR HGB CONC 34.1 G/DL (32.0-36.0); MEAN CORPUSCULAR VOLUME 84 FL (80-99); MEAN PLATELET VOLUME 7.1 FL (6.5-10.1); MONOCYTES % (AUTO) 6.8 % (1.0-10.0); NEUTROPHILS % (AUTO) 62.8 % (45.0-75.0); PLATELET COUNT 195 K/UL (150-450); RED BLOOD COUNT 3.67 M/UL (4.20-5.40); RED CELL DISTRIBUTION WIDTH 13.4 % (11.6-14.8); WHITE BLOOD COUNT 7.2 K/UL (4.8-10.8)
[2017-01-30 08:27] LABS: ANION GAP 14 (5-15); CARBON DIOXIDE 27 mEQ/L (20-30); CHLORIDE 100 mEQ/L (98-107); CREATININE 0.7 mg/dL (0.5-0.9); GLOMERULAR FILTRATION RATE > 60 mL/min (>60); HEMOLYSIS 8; POTASSIUM 3.3 mEQ/L (3.4-4.9); SODIUM 141 mEQ/L (135-145)
[2017-01-30] MEDS: Heparin 5000 units/ml inj SUBQ SCH ×2 (08:39→22:03)
[2017-01-30] MEDS: D5NS 1,000 ML IV SCH ×2 (08:39→17:22)
[2017-01-30] MEDS: Docusate 100mg cap ORAL SCH ×2 (08:39→22:02)
--- NOTE | 2017-01-30 09:59 | Pre-Procedure Note/Attestation ---
Pre-Procedure Note/Attestation Complete Prior to Procedure Planned Procedure: bilateral Procedure Narrative: Flap closure of bilateral axillary wounds Indications for Procedure Pre-Operative Diagnosis: Bilateral infected axillary and left breast masses Attestation I attest that I discussed the nature of the procedure; its benefits; risks and complications; and alternatives (and the risks and benefits of such alternatives ), prior to the procedure, with the patient (or the patient's legal international sales representative). I attest that, if there was a reasonable possibility of needing a blood transfusion, the patient (or the patient's legal international sales representative) was given the [facility] standardized written summary, pursuant to the Geovanny [place] Blood Safety Act ([place] Health and Safety Code # 1645, as amended). I attest that I re-evaluated the patient just prior to the surgery and that there has been no change in the patient's H&P, except as documented below: SADAF HICKS Jan 30, 2017 09:59
--- NOTE | 2017-01-30 10:00 | Pre-Procedure Note/Attestation ---
Pre-Procedure Note/Attestation Complete Prior to Procedure Planned Procedure: bilateral Procedure Narrative: Bilateral axillary and left breast wound flap closure Indications for Procedure Pre-Operative Diagnosis: Bilateral axillary and left breast wounds Attestation I attest that I discussed the nature of the procedure; its benefits; risks and complications; and alternatives (and the risks and benefits of such alternatives ), prior to the procedure, with the patient (or the patient's legal used equipment sales representative). I attest that, if there was a reasonable possibility of needing a blood transfusion, the patient (or the patient's legal used equipment sales representative) was given the [facility] standardized written summary, pursuant to the Geovanny [place] Blood Safety Act ([place] Health and Safety Code # 1645, as amended). I attest that I re-evaluated the patient just prior to the surgery and that there has been no change in the patient's H&P, except as documented below: SADAF HICKS Jan 30, 2017 10:00
--- NOTE | 2017-01-30 10:43 | Operative Note - PDOC ---
Operative Note Operative Note Pre-op Diagnosis: Bilateral axillary and left breast wounds Procedure: Closure of bilateral axillary and left breast wounds Surgeon: Pepe Addressograph Operator: Tyrone Anesthesia: general Specimen: yes Complications: none Condition: stable Estimated Blood Loss: minimal Implant(s) used?: No SADAF HICKS Jan 30, 2017 10:43
[2017-01-30] MEDS ORDERED: Rate Change PCA 1 Each MISC PRN (10:45)
[2017-01-30] MEDS ORDERED: Propofol 10mg/ml 20ml IV ONE (10:50)
[2017-01-30] MEDS ORDERED: Ketorolac 30mg Inj ONE (11:00)
[2017-01-30] MEDS ORDERED: fentaNYL 100 mcg/2 mL IV ONE (11:00)
[2017-01-30] MEDS ORDERED: LR 1000ml ONE (11:00)
[2017-01-30] MEDS ORDERED: Succinylcholine 20mg/ml 10ml vial ONE (11:00)
[2017-01-30] MEDS ORDERED: Morphine Sulfate 10mg/ml Inj ONE (11:00)
[2017-01-30] MEDS ORDERED: Midazolam 2mg/2ml Inj ONE (11:00)
[2017-01-30] MEDS ORDERED: Sterile Water Irrig 1000ml IRRIG ONE (11:00)
[2017-01-30] MEDS ORDERED: NS Irrig 1000ml ONE (11:00)
[2017-01-30] MEDS ORDERED: Lidocaine 1% 10mg/ml/Epi 0.005mg/ml 30ml vial INJ ONE (11:33)
[2017-01-30] MEDS ORDERED: DiphenhydrAMINE 50mg/ml Inj IVP PRN (11:45)
[2017-01-30] MEDS ORDERED: Metoclopramide 10mg/2ml Inj IVP PRN (11:45)
[2017-01-30] MEDS ORDERED: Hydromorphone 0.5mg/0.5ml inj IVP PRN (11:45)
[2017-01-30] MEDS ORDERED: Meperidine 25mg/0.5ml Inj IV PRN (11:45)
[2017-01-30] MEDS ORDERED: Ketorolac 30mg Inj IV PRN (11:45)
[2017-01-30] MEDS ORDERED: LR 1000ml 1,000 ML IVLG SCH (11:45)
--- NOTE | 2017-01-30 11:45 | Anethesia Preoperative Eval ---
Anesthesia Pre-op PMH/ROS General Date of Evaluation: Jan 30, 2017 Time of Evaluation: 10:55 Anesthesiologist: Kiah ASA Score: ASA 2 Mallampati Score Class I : Soft palate, uvula, fauces, pillars visible Class II: Soft palate, uvula, fauces visible Class III: Soft palate, base of uvula visible Class IV: Only hard plate visible Mallampati Classification: Class II Surgeon: Pepe Diagnosis: Recurrent HS Surgical Procedure: Revision and closure of bilateral axillary wounds Anesthesia History: none Family History: no anesthesia problems Allergies: Coded Allergies: No Known Allergies (Unverified , 01/26/17) Medications: see eMAR Past Medical History Cardiovascular: Denies: CAD, HTN, UT, arrhythmia, other, valve dz Pulmonary: Denies: COPD, SUKHWINDER, asthma, other Gastrointestinal/Genitourinary: Reports: GERD, Denies: CRI, ESRD, other Neurologic/Psychiatric: Reports: depression/anxiety, Denies: CVA, TIA, dementia, other Endocrine: Denies: DM, hypothyroidism, other, steroids HEENT: Denies: AKUTAN (L), AKUTAN (R), cataract (L), cataract (R), glaucoma, other Hematology/Immune: Denies: DVT, anemia, bleeding disorder, other Musculoskeletal/Integumentary: Reports: other - recurrent HS PMH Narrative: as above PSxH Narrative: Cholecystectomy Anesthesia Pre-op Phys. Exam Physician Exam Last Vital Signs Date Time Temp Pulse Resp B/P Pulse Ox O2 Delivery O2 Flow Rate FiO2 01/30/17 08:00 98.2 78 17 121/63 99 Room Air 01/28/17 08:40 2.0 Constitutional: NAD Neurologic: CN 2-12 intact Cardiovascular: RRR, no M/R/G Respiratory: CTA Gastrointestinal: S/NT/ND Airway Exam Mallampati Score: Class II MO: full Neck: flexible ROM: full Teeth: intact Dentures: no lower, no upper Anesthesia Pre-op A/P Labs Hematology Test 01/30/17 05:45 White Blood Count 7.2 K/UL (4.8-10.8) Red Blood Count 3.67 M/UL (4.20-5.40) L Hemoglobin 10.6 G/DL (12.0-16.0) L Hematocrit 31.0 % (37.0-47.0) L Mean Corpuscular Volume 84 FL (80-99) Mean Corpuscular Hemoglobin 28.7 PG (27.0-31.0) Mean Corpuscular Hemoglobin Concent 34.1 G/DL (32.0-36.0) Red Cell Distribution Width 13.4 % (11.6-14.8) Platelet Count 195 K/UL (150-450) Mean Platelet Volume 7.1 FL (6.5-10.1) Neutrophils (%) (Auto) 62.8 % (45.0-75.0) Lymphocytes (%) (Auto) 27.9 % (20.0-45.0) Monocytes (%) (Auto) 6.8 % (1.0-10.0) Eosinophils (%) (Auto) 1.8 % (0.0-3.0) Basophils (%) (Auto) 0.7 % (0.0-2.0) Chemistry Test 01/30/17 05:45 Sodium Level 141 mEQ/L (135-145) Potassium Level 3.3 mEQ/L (3.4-4.9) L Chloride Level 100 mEQ/L (98-107) Carbon Dioxide Level 27 mEQ/L (20-30) Anion Gap 14 (5-15) Blood Urea Nitrogen 5 mg/dL (7-23) L Creatinine 0.7 mg/dL (0.5-0.9) Estimat Glomerular Filtration Rate > 60 mL/min (>60) Glucose Level 91 mg/dL (74-106) Calcium Level 9.0 mg/dL (8.6-10.2) Risk Assessment & Plan Assessment: ASA 2 Plan: GA with ETT Status Change Before Surgery: No Pre-Antibiotics Drug: Ancef 1gr. Given Within 1 Hr of Incision: Yes Time Given: 11:15 SHANIA MATTA M.D. Jan 30, 2017 11:45
[2017-01-30] MEDS ORDERED: Bacitracin 50000 Units Vial ONE (13:03)
[2017-01-30] MEDS: Midazolam 2mg/2ml Inj IVP PRN ×2 (13:50→14:09)
[2017-01-30] MEDS: PCA HYDROmorphone 1mg/ml 30 ML IV PRN (13:56)
--- NOTE | 2017-01-30 15:00 | General Progress Note ---
Assessment/Plan Problem List: (1) Abscess Assessment & Plan: s/p debridement of bilateral axillae POD#3 s/p Closure of bilateral axillary and left breast wounds POD#0 f/u blood cx Cont IV abx Pain control Supp care A total of 32 mins of additional time was spent with this patient, care coordination and counseling, in addition to the face to face time with the patient. ICD Codes: L02.91 - Cutaneous abscess, unspecified SNOMED: [id number] Subjective Date patient seen: Jan 30, 2017 ROS Limited/Unobtainable: No Allergies: Coded Allergies: No Known Allergies (Unverified , 01/26/17) Subjective s/p debridement of bilateral axillae POD#3, s/p Closure of bilateral axillary and left breast wounds earlier today, without periop or postop complications. Denied chest pain or dyspnea, no n/v, postop pain well controlled. Objective Last 24 Hour Vital Signs Date Time Temp Pulse Resp B/P Pulse Ox O2 Delivery O2 Flow Rate FiO2 01/30/17 14:45 15 01/30/17 14:31 99.2 01/30/17 14:30 16 01/30/17 14:30 99.2 01/30/17 14:30 99.2 01/30/17 14:30 68 14 173/73 100 Nasal Cannula 3.0 01/30/17 14:16 72 16 157/73 100 Nasal Cannula 3.0 01/30/17 14:15 18 01/30/17 14:00 88 18 150/68 100 Nasal Cannula 3.0 01/30/17 13:56 20 01/30/17 13:50 92 21 150/74 100 Nasal Cannula 3.0 01/30/17 13:44 99.9 88 22 162/83 100 Simple Mask 6.0 01/30/17 08:00 98.2 78 17 121/63 99 Room Air 01/30/17 04:00 98.2 59 19 133/68 97 Room Air 01/30/17 00:21 98.1 58 19 132/65 97 Room Air 01/29/17 20:07 98.1 60 18 150/88 99 Room Air 01/29/17 18:16 98.1 01/29/17 16:00 97.7 88 20 123/64 99 Room Air Intake and Output 01/29/17 01/30/17 19:00 07:00 Intake Total 480 ml Output Total 30 ml 100 ml Balance 450 ml -100 ml Intake Oral 480 ml Drainage Total 30 ml 100 ml # Voids 4 2 Laboratory Tests 01/30/17 05:45: White Blood Count 7.2, Red Blood Count 3.67L, Hemoglobin 10.6L, Hematocrit 31.0L , Mean Corpuscular Volume 84, Mean Corpuscular Hemoglobin 28.7, Mean Corpuscular Hemoglobin Concent 34.1, Red Cell Distribution Width 13.4, Platelet Count 195, Mean Platelet Volume 7.1, Neutrophils (%) (Auto) 62.8, Lymphocytes (% ) (Auto) 27.9, Monocytes (%) (Auto) 6.8, Eosinophils (%) (Auto) 1.8, Basophils ( %) (Auto) 0.7, Sodium Level 141, Potassium Level 3.3L, Chloride Level 100, Carbon Dioxide Level 27, Anion Gap 14, Blood Urea Nitrogen 5L, Creatinine 0.7, Estimat Glomerular Filtration Rate > 60, Glucose Level 91, Calcium Level 9.0 Height (Feet): 5 Height (Inches): 7.00 Weight (Pounds): 190 Objective General: alert, cooperative, no distress, appears stated age Head: normocephalic, without obvious abnormality, atraumatic Eyes: conjunctivae/corneas clear. PERRL, EOM's intact Throat: lips, mucosa, and tongue normal. MMM Neck: supple, symmetrical, trachea midline, and no JVD Lungs: clear to auscultation bilaterally Heart: regular rate and rhythm, S1, S2 normal, no murmur, click, rub or gallop Abdomen: soft, non-tender, non-distended, bowel sounds normal; no masses or organomegaly Extremities: axillae dressings, c/d/i Pulses: 2+ and symmetric Skin: skin color, texture, turgor normal; no rashes or lesions Neurologic: grossly normal, no focal deficits GADIEL BLOCK Jan 30, 2017 15:00
--- NOTE | 2017-01-30 15:16 | Immediate Post-Op Evaluation ---
Immediate Post-Op Evalulation Immediate Post-Op Evalulation Procedure: Revision and closure of bilateral axillary wounds Date of Evaluation: Jan 30, 2017 Time of Evaluation: 13:49 IV Fluids: 1200 Blood Products: none Estimated Blood Loss: <50 Urinary Output: none Blood Pressure Systolic: 132 Blood Pressure Diastolic: 75 Pulse Rate: 86 Respiratory Rate: 20 O2 Sat by Pulse Oximetry: 98 Temperature (Fahrenheit): 97.6 Pain Score (1-10): 2 Nausea: No Vomiting: No Complications none Patient Status: reacts, patent, extubated, none Hydration Status: adequate SHANIA MATTA M.D. Jan 30, 2017 15:16
--- NOTE | 2017-01-30 18:56 | 48 Hour Post Anesthesia Eval ---
Post Anesthesia Evaluation Procedure: Revision and closure of bilateral axillary wounds Date of Evaluation: Jan 30, 2017 Time of Evaluation: 18:50 Blood Pressure Systolic: 157 0: 72 Pulse Rate: 64 Respiratory Rate: 20 Temperature (Fahrenheit): 98.2 O2 Sat by Pulse Oximetry: 96 Airway: patent Nausea: No Vomiting: No Pain Intensity: 2 Hydration Status: adequate Cardiopulmonary Status: Stable Mental Status/LOC: patient returned to baseline Follow-up Care/Observations: As per surgery Post-Anesthesia Complications: No anesthetic complication Follow-up care needed: N/A LOW ZUNIGA M.D. Jan 30, 2017 18:56
[2017-01-30] MEDS: PCA shift volume MISC SCH (19:00)
[2017-01-30] MEDS ORDERED: Zolpidem 5mg tab ORAL PRN (20:00)
[2017-01-30] MEDS ORDERED: Heparin 5000 units/ml inj SUBQ SCH (21:00)
--- NOTE | 2017-01-30 22:15 | Operative Note - Dictated ---
DATE OF OPERATION: 01/30/2017 PREOPERATIVE DIAGNOSES: 1. Bilateral open axillary wounds. 2. Open left breast wound. POSTOPERATIVE DIAGNOSES: 1. Bilateral open axillary wounds. 2. Open left breast wound. PROCEDURE: 1. Preparation of left axillary wound for flap closure. 2. Thoracodorsal artery flap transposition in the left axillary wound. 3. Elevation of a posterior trunk flap for closure of donor site of the thoracodorsal artery flap on the left side. 4. Preparation of the right axillary wound for flap closure. 5. Thoracodorsal artery flap transposition for closure of right axillary wound. 6. Elevation of the posterior trunk flap for closure of donor site of right-sided thoracodorsal artery flap. 7. Preparation of left breast wound. 8. Lanre flap reelevation for closure of left breast wound. SURGEON: Corry Cantu M.D. VAULT MECHANIC: Cynthia Hansen M.D ANESTHESIA: General. COMPLICATIONS: None. DRAINS: Included two JPs and wound VACs. DISPOSITION: Stable to the recovery room. INDICATIONS FOR SURGERY: This is a 26-year-old female, who is now 72 hours postoperative from bilateral axillary tissue excision with flap elevation who has been undergoing wound VAC therapy and is now prepared and ready to undergo definitive flap transfer and closure of her wounds. She understands the risks and benefits of surgery and agrees to proceed. DETAILS OF THE OPERATION: The patient was brought to the operating room and laid down in supine position on the operating room table. Her bilateral axilla and breast wounds were prepped and draped in a sterile and usual fashion. We first began by preparing the left axillary wound for flap transfer by debriding some of the nonviable tissue and then once this was done, the thoracodorsal artery flap that had been previously elevated was disinserted from its donor site by removing thiago and we began by first elevating a posterior trunk flap by releasing the attachments of the posterior tissue at the donor site to the latissimus dorsi muscle. With this flap elevated based off of perforators of the intercostal vessels we were then able to close the donor site without tension. Once this posterior trunk flap was elevated the thoracodorsal artery blood flap was then left free on its pedicle. The wound was copiously irrigated with pulse lavage and then we proceeded to transpose the thoracodorsal artery flap into the axillary defect with inset being performed using #0 and 2-0 Vicryl sutures and thiago were used to close the skin. In a similar fashion, the donor site was closed using #0 and 2-0 Vicryl sutures and thiago were used to close the skin. We then turned our attention to the contralateral right axillary wound and in a similar fashion the right axillary wound was prepared for closure by removing some of the nonviable tissue and then the thoracodorsal artery flap was removed from its donor site while still attached to the pedicle by disinserting the thiago and then a posterior trunk flap was similarly elevated on this side by releasing the flap from the latissimus dorsi muscle attachments. Again, this posterior trunk flap was based off of perforators of the intercostal arteries. With this done, there could be at tension-free closure of the donor site. The wound was copiously irrigated with pulse lavage and the thoracodorsal artery flap was then transferred into the right axillary defect and similarly to the other side with inset using #0 and 2-0 Vicryl sutures and thiago were used to close the skin. The donor site was closed with #0 and 2-0 Vicryl sutures and the thiago were used to close the skin. A #15 DAMIEN was placed on both sides and a wound VAC was also applied just to the skin to further reinforce the closure on both axillary and donor site incisions. We then turned our attention to the left breast wound which was debrided and some of the nonviable tissues were removed and the Lanre flap that had been previously elevated was reelevated based off of perforators of the superficial epigastric artery and the flap was then inserted into the inferior edge of the breast using #0 and 2-0 Vicryl sutures and a 3-0 Monocryl was used to close the skin. All sponge and needle counts were correct at the end of the case. The patient tolerated the procedure well. No complications. Corry Cantu M.D. DR: AMINAH JOB#: [id number] CC:
[2017-01-31] MEDS: ceFAZolin sod 1 GM in D5W 55 ML IVPB SCH ×4 (00:05→23:44)
[2017-01-31 00:10] VITALS: BP 131/72
[2017-01-31] MEDS: D5NS 1,000 ML IV SCH ×3 (02:18→22:14)
[2017-01-31 04:00] VITALS: BP 143/73
[2017-01-31] MEDS: PCA shift volume MISC SCH ×2 (07:21→19:00)
[2017-01-31 08:00] VITALS: BP 154/73
[2017-01-31] MEDS ORDERED: Sodium Bicarbonate 4% 2.4meq/5ml vial INJ PRN (08:15)
[2017-01-31] MEDS ORDERED: Heparin 2000 units/Ns 1000ml INJ PRN (08:15)
[2017-01-31] MEDS ORDERED: Lidocaine 1% Plain 30 ml INJ PRN (08:15)
[2017-01-31] MEDS: Docusate 100mg cap ORAL SCH ×2 (08:32→21:00)
[2017-01-31] MEDS: Heparin 5000 units/ml inj SUBQ SCH ×2 (08:33→21:00)
[2017-01-31] MEDS ORDERED: Dyna-Hex 2% Top Sol 8oz TOPIC SCH (09:00)
[2017-01-31 12:00] VITALS: BP 121/75
[2017-01-31 16:03] VITALS: BP 120/71
[2017-01-31] MEDS: PCA HYDROmorphone 1mg/ml 30 ML IV PRN (16:41)
--- NOTE | 2017-01-31 18:47 | General Progress Note ---
Assessment/Plan Problem List: (1) Abscess Assessment & Plan: s/p debridement of bilateral axillae POD#4 s/p Closure of bilateral axillary and left breast wounds POD#1 f/u blood cx Cont IV abx Pain control Supp care A total of 32 mins of additional time was spent with this patient, care coordination and counseling, in addition to the face to face time with the patient. ICD Codes: L02.91 - Cutaneous abscess, unspecified SNOMED: 860146272 Subjective Date patient seen: Jan 31, 2017 Time patient seen: 18:45 ROS Limited/Unobtainable: No Allergies: Coded Allergies: No Known Allergies (Unverified , 01/26/17) Subjective s/p debridement of bilateral axillae POD#4, s/p Closure of bilateral axillary and left breast wounds POD#1 without periop or postop complications. Denied chest pain or dyspnea, no n/v, postop pain well controlled. Objective Last 24 Hour Vital Signs Date Time Temp Pulse Resp B/P Pulse Ox O2 Delivery O2 Flow Rate FiO2 01/31/17 17:13 98.6 01/31/17 16:45 18 01/31/17 16:03 98.6 54 19 120/71 100 Room Air 54 01/31/17 12:00 18 01/31/17 12:00 97.9 62 18 121/75 93 Room Air 01/31/17 08:00 98.1 52 20 154/73 93 Room Air 01/31/17 08:00 18 01/31/17 04:00 97.9 53 18 143/73 99 Room Air 01/31/17 04:00 15 01/31/17 00:10 98.1 55 18 131/72 98 Room Air 01/31/17 00:00 16 01/30/17 20:00 15 01/30/17 20:00 98.1 64 20 128/69 98 Room Air 01/30/17 18:56 64 20 96 Intake and Output 01/30/17 01/31/17 19:00 07:00 Intake Total 1350 ml 1200 ml Output Total 97 ml Balance 1253 ml 1200 ml IV Total 1350 ml 1200 ml Drainage Total 47 ml Estimated Blood Loss 50 ml Height (Feet): 5 Height (Inches): 7.00 Weight (Pounds): 190 Objective General: alert, cooperative, no distress, appears stated age Head: normocephalic, without obvious abnormality, atraumatic Eyes: conjunctivae/corneas clear. PERRL, EOM's intact Throat: lips, mucosa, and tongue normal. MMM Neck: supple, symmetrical, trachea midline, and no JVD Lungs: clear to auscultation bilaterally Heart: regular rate and rhythm, S1, S2 normal, no murmur, click, rub or gallop Abdomen: soft, non-tender, non-distended, bowel sounds normal; no masses or organomegaly Extremities: axillae dressings, c/d/i Pulses: 2+ and symmetric Skin: skin color, texture, turgor normal; no rashes or lesions Neurologic: grossly normal, no focal deficits GADIEL BLOCK Jan 31, 2017 18:46
[2017-01-31 20:23] VITALS: BP 147/75
[2017-02-01] VITALS: BP 133/72
[2017-02-01 04:06] VITALS: BP 132/76
[2017-02-01] MEDS: PCA shift volume MISC SCH (07:15)
[2017-02-01] MEDS: ceFAZolin sod 1 GM in D5W 55 ML IVPB SCH ×3 (07:17→23:28)
[2017-02-01 08:00] VITALS: BP 145/87
[2017-02-01] MEDS: Docusate 100mg cap ORAL SCH ×2 (09:03→20:08)
[2017-02-01] MEDS: Heparin 5000 units/ml inj SUBQ SCH ×2 (09:07→20:13)
[2017-02-01] MEDS: D5NS 1,000 ML IV SCH ×2 (09:08→20:08)
[2017-02-01 12:00] VITALS: BP 146/78
[2017-02-01] MEDS ORDERED: Milk of Magnesia 30ml Ud ORAL PRN (12:45)
[2017-02-01] MEDS ORDERED: Pericolace tab ORAL ONE (13:00)
[2017-02-01] MEDS ORDERED: HYDROmorphone 1mg/ml Carpuject IVP PRN (15:00)
--- NOTE | 2017-02-01 15:49 | General Progress Note ---
Assessment/Plan Problem List: (1) Abscess Assessment & Plan: s/p debridement of bilateral axillae POD#5 s/p Closure of bilateral axillary and left breast wounds POD#2 f/u blood cx Cont IV abx Pain control Supp care A total of 32 mins of additional time was spent with this patient, care coordination and counseling, in addition to the face to face time with the patient. ICD Codes: L02.91 - Cutaneous abscess, unspecified SNOMED: 415406002 Subjective Date patient seen: Feb 01, 2017 Time patient seen: 15:48 ROS Limited/Unobtainable: No Allergies: Coded Allergies: No Known Allergies (Unverified , 01/26/17) Subjective s/p debridement of bilateral axillae POD#5, s/p Closure of bilateral axillary and left breast wounds POD#2 without periop or postop complications. Denied chest pain or dyspnea, no n/v, postop pain well controlled. Objective Last 24 Hour Vital Signs Date Time Temp Pulse Resp B/P Pulse Ox O2 Delivery O2 Flow Rate FiO2 02/01/17 15:06 18 02/01/17 12:00 98.2 66 20 146/78 98 Room Air 02/01/17 12:00 18 02/01/17 08:00 18 02/01/17 08:00 98.1 63 20 145/87 98 Room Air 02/01/17 04:06 98.8 63 20 132/76 99 Room Air 02/01/17 04:00 18 02/01/17 00:00 16 02/01/17 00:00 98.1 51 19 133/72 95 Room Air 01/31/17 20:23 98.2 50 19 147/75 100 Room Air 01/31/17 20:00 16 01/31/17 17:13 98.6 01/31/17 16:45 18 01/31/17 16:03 98.6 54 19 120/71 100 Room Air 54 Intake and Output 01/31/17 02/01/17 19:00 07:00 Intake Total 660 ml 1500 ml Output Total 60 ml 127 ml Balance 600 ml 1373 ml Intake Oral 560 ml 400 ml IV Total 100 ml 1100 ml Output Emesis 30 ml Drainage Total 60 ml 97 ml # Voids 2 2 Height (Feet): 5 Height (Inches): 7.00 Weight (Pounds): 190 Objective General: alert, cooperative, no distress, appears stated age Head: normocephalic, without obvious abnormality, atraumatic Eyes: conjunctivae/corneas clear. PERRL, EOM's intact Throat: lips, mucosa, and tongue normal. MMM Neck: supple, symmetrical, trachea midline, and no JVD Lungs: clear to auscultation bilaterally Heart: regular rate and rhythm, S1, S2 normal, no murmur, click, rub or gallop Abdomen: soft, non-tender, non-distended, bowel sounds normal; no masses or organomegaly Extremities: axillae dressings, c/d/i Pulses: 2+ and symmetric Skin: skin color, texture, turgor normal; no rashes or lesions Neurologic: grossly normal, no focal deficits GADIEL BLOCK Feb 01, 2017 15:49
[2017-02-01 16:23] VITALS: BP 147/87
[2017-02-01 20:00] VITALS: BP 135/91
[2017-02-01] MEDS ORDERED: Fleet's Mineral Oil Enema RECTAL ONE (20:00)
[2017-02-02] VITALS (17 sets, daily range): BP systolic 116–148; BP diastolic 48–85
[2017-02-02] MEDS: ceFAZolin sod 1 GM in D5W 55 ML IVPB SCH ×3 (05:59→21:50)
[2017-02-02] MEDS: D5NS 1,000 ML IV SCH ×4 (05:59→21:50)
[2017-02-02] MEDS ORDERED: Bacitracin Oint 15gm Tube TOPIC ONE (06:16)
[2017-02-02] MEDS ORDERED: Bacitracin 50000 Units Vial ONE (06:16)
[2017-02-02] MEDS ORDERED: Lidocaine 1% 10mg/ml/Epi 0.005mg/ml 30ml vial INJ ONE ×3 (06:16→08:10)
--- NOTE | 2017-02-02 06:37 | Pre-Procedure Note/Attestation ---
Pre-Procedure Note/Attestation Complete Prior to Procedure Planned Procedure: bilateral Indications for Procedure Pre-Operative Diagnosis: Bilateral groin debridement with flap elevation Attestation I attest that I discussed the nature of the procedure; its benefits; risks and complications; and alternatives (and the risks and benefits of such alternatives ), prior to the procedure, with the patient (or the patient's legal hvac sales representative). I attest that, if there was a reasonable possibility of needing a blood transfusion, the patient (or the patient's legal hvac sales representative) was given the [facility] standardized written summary, pursuant to the Geovanny Weingarten Blood Safety Act ([place] Health and Safety Code # 1645, as amended). I attest that I re-evaluated the patient just prior to the surgery and that there has been no change in the patient's H&P, except as documented below: SADAF HICKS Feb 02, 2017 06:37
--- NOTE | 2017-02-02 06:38 | Operative Note - PDOC ---
Operative Note Operative Note Pre-op Diagnosis: Bilateral groin debridement with flap elevation Procedure: Bilateral infected groin tissue Surgeon: Pepe Bulk Plant Agent: Tyrone Anesthesia: general Specimen: yes Complications: none Condition: stable Estimated Blood Loss: minimal Drains: none Implant(s) used?: No SADAF HICKS Feb 02, 2017 06:38
[2017-02-02] MEDS ORDERED: Rate Change PCA 1 Each MISC PRN ×2 (06:45→09:15)
[2017-02-02] MEDS ORDERED: DiphenhydrAMINE 50mg/ml Inj IVP PRN ×2 (06:45→08:15)
[2017-02-02] MEDS ORDERED: Zolpidem 5mg tab ORAL PRN (06:45)
[2017-02-02] MEDS ORDERED: PCA HYDROmorphone 1mg/ml 30 ML IV PRN ×2 (06:45→09:15)
[2017-02-02] MEDS ORDERED: Surgicel 4in x 8in TOPIC ONE ×2 (06:51→08:24)
[2017-02-02] MEDS ORDERED: Nimbex 2mg/ml Inj 10ML IVP ONE (07:00)
[2017-02-02] MEDS ORDERED: Neostigmine 1mg/ml 10ml Inj ONE (07:00)
[2017-02-02] MEDS ORDERED: Ketorolac 30mg Inj ONE (07:00)
[2017-02-02] MEDS ORDERED: Midazolam 2mg/2ml Inj ONE (07:00)
[2017-02-02] MEDS ORDERED: fentaNYL 100 mcg/2 mL IV ONE (07:00)
[2017-02-02] MEDS ORDERED: Glycopyrrolate 0.2mg/ml 1ml Vial ONE (07:00)
[2017-02-02] MEDS ORDERED: NS Irrig 1000ml ONE (07:00)
[2017-02-02] MEDS ORDERED: Succinylcholine 20mg/ml 10ml vial ONE (07:00)
[2017-02-02] MEDS ORDERED: Morphine Sulfate 10mg/ml Inj ONE (07:00)
[2017-02-02] MEDS ORDERED: PCA shift volume MISC SCH (07:00)
[2017-02-02] MEDS ORDERED: Sterile Water Irrig 1000ml IRRIG ONE (07:00)
[2017-02-02] MEDS ORDERED: LR 1000ml ONE (07:00)
[2017-02-02] MEDS ORDERED: Propofol 10mg/ml 20ml IV ONE (07:00)
[2017-02-02] MEDS ORDERED: LR 1000ml 1,000 ML IVLG SCH (08:05)
--- NOTE | 2017-02-02 08:05 | Anethesia Preoperative Eval ---
Anesthesia Pre-op PMH/ROS General Date of Evaluation: Feb 02, 2017 Time of Evaluation: 06:55 Anesthesiologist: Kiah ASA Score: ASA 2 Mallampati Score Class I : Soft palate, uvula, fauces, pillars visible Class II: Soft palate, uvula, fauces visible Class III: Soft palate, base of uvula visible Class IV: Only hard plate visible Mallampati Classification: Class II Surgeon: Pepe Diagnosis: Recurrent HS Surgical Procedure: Excision of bilateral groin hydradenitis Anesthesia History: none Family History: no anesthesia problems Allergies: Coded Allergies: No Known Allergies (Unverified , 01/26/17) Past Medical History Cardiovascular: Denies: CAD, HTN, CO, arrhythmia, other, valve dz Pulmonary: Denies: COPD, SUKHWINDER, asthma, other Gastrointestinal/Genitourinary: Reports: GERD - mild, Denies: CRI, ESRD, other Neurologic/Psychiatric: Reports: depression/anxiety, Denies: CVA, TIA, dementia, other Endocrine: Denies: DM, hypothyroidism, other, steroids HEENT: Denies: [place] (L), [place] (R), cataract (L), cataract (R), glaucoma, other Hematology/Immune: Reports: anemia - mild, Denies: DVT, bleeding disorder, other Musculoskeletal/Integumentary: Reports: other - recurrent HS, Denies: DDD, DJD, OA, RA, edema PMH Narrative: as above PSxH Narrative: see chart Anesthesia Pre-op Phys. Exam Physician Exam Last Vital Signs Date Time Temp Pulse Resp B/P Pulse Ox O2 Delivery O2 Flow Rate FiO2 02/02/17 04:00 98.1 59 18 122/61 100 Room Air 01/30/17 16:00 2.0 Constitutional: NAD Neurologic: CN 2-12 intact Cardiovascular: RRR, no M/R/G Respiratory: CTA Gastrointestinal: S/NT/ND Airway Exam Mallampati Score: Class II MO: full Neck: flexible ROM: full Teeth: intact Dentures: no lower, no upper Anesthesia Pre-op A/P Labs see chart Risk Assessment & Plan Assessment: ASA 2 Plan: GA with ETT Status Change Before Surgery: No Pre-Antibiotics Drug: Ancef 1gr. Given Within 1 Hr of Incision: Yes Time Given: 07:18 SHANIA MATTA M.D. Feb 02, 2017 08:05
[2017-02-02] MEDS ORDERED: Meperidine 25mg/0.5ml Inj IV PRN (08:15)
[2017-02-02] MEDS ORDERED: Midazolam 2mg/2ml Inj IVP PRN (08:15)
[2017-02-02] MEDS ORDERED: Hydromorphone 0.5mg/0.5ml inj IVP PRN (08:15)
[2017-02-02] MEDS ORDERED: Ketorolac 30mg Inj IV PRN (08:15)
[2017-02-02] MEDS ORDERED: Metoclopramide 10mg/2ml Inj IVP PRN (08:15)
[2017-02-02] MEDS: Heparin 5000 units/ml inj SUBQ SCH ×2 (09:00→21:57)
[2017-02-02] MEDS: Docusate 100mg cap ORAL SCH ×2 (09:00→21:51)
--- NOTE | 2017-02-02 09:00 | Immediate Post-Op Evaluation ---
Immediate Post-Op Evalulation Immediate Post-Op Evalulation Procedure: Excision of bilateral groin hydradenitis Date of Evaluation: Feb 02, 2017 Time of Evaluation: 08:59 IV Fluids: 1100 Blood Products: none Estimated Blood Loss: 100 Urinary Output: 400 Blood Pressure Systolic: 127 Blood Pressure Diastolic: 56 Pulse Rate: 68 Respiratory Rate: 20 O2 Sat by Pulse Oximetry: 99 Temperature (Fahrenheit): 97.4 Pain Score (1-10): 3 Nausea: No Vomiting: No Complications none Patient Status: reacts, patent, extubated, none Hydration Status: adequate SHANIA MATTA M.D. Feb 02, 2017 09:00
--- NOTE | 2017-02-02 10:30 | Operative Note - Dictated ---
DATE OF OPERATION: 02/02/2017 PREOPERATIVE DIAGNOSIS: Bilateral infected groin masses. POSTOPERATIVE DIAGNOSIS: 1. Bilateral infected groin masses. PROCEDURES: 1. Radical excision of the left groin infected mass. 2. Fasciocutaneous medial thigh flap elevation for staged closure of left groin wound. 3. Fasciocutaneous elevation of medial groin flap for closure of left groin wound. 4. Radical excision of right groin infected mass. 5. Fasciocutaneous medial thigh flap elevation for staged closure of right groin wound. 6. Fasciocutaneous medial groin flap elevation for staged closure of right groin wound. SURGEON: Corry Cantu M.D. COMMUNITY DEVELOPMENT DIRECTOR: Cynthia Hansen M.D. ANESTHESIA: General. COMPLICATIONS: None. DRAINS: None. DISPOSITION: Stable to the recovery room. INDICATIONS FOR SURGERY: This is a 26-year-old female, who has already undergone bilateral axillary debridement with reconstruction, who also has evidence of infected tissue in the groin region. These infected masses have been draining and causing significant amount of pain and discomfort for the patient. I feel that she is an appropriate candidate for stage III treatment with radical excision of the tissue followed by flap reconstruction. She understands the risks and benefits of surgery and agrees to proceed. DETAILS OF THE OPERATION: The patient was brought to the operating room and laid in the lithotomy position in the operating table. After induction of anesthesia, a Chavez catheter was placed and the infected areas were delineated with a elliptical type incision. Once the markings were made, the patient was prepped and draped and lidocaine with epinephrine was injected into both areas and after 5 minute the laps a #10 blade was used to first make a skin incision around the left groin mass all the way down to the level to the dermis all way down to the level of the adductor fascia. The electrocautery was then used to radically excise the infected tissue mass from the underlying wound bed and once this was done, we began to first elevated fasciocutaneous medial thigh flap based off of perforators of the superficial femoral artery. This was elevated just above the level of the adductor fascia with proximal and distal incisions made to fully mobilize the flap. This was noted not to be enough to close the wound as such a corresponding or apposing medial groin flap was also elevated based off of perforators of the superficial circumflex iliac artery as well as pudendal artery this was elevated also at the level of the fascia with proximal and distal incisions made to fully mobilize this flap. Lidocaine with epinephrine soaked gauze was then placed into the wound and we turned our attention to the contralateral side where a similar markings were made and the #10 blade was then used to make the skin incision and then the electrocautery was then used to radically excised the mass all the way down to the level of the adductor fascia once the mass was fully mobilized and it was removed from the wound and we then proceeded to elevated similar medial thigh flap on this side based off of perforators of the superficial femoral artery with proximal and distal incisions made to fully mobilize the flap off of the adductor fascia. Corresponding medial groin flap also had to be elevated because there was not enough that one flap was elevated to be able to close the wound without tension. The medial groin flap was based off of perforators of the pudendal artery and then superficial circumflex iliac artery and with the flap fully mobilized on that side. We then proceeded to place lidocaine with epinephrine soaked gauze into this wound as well after 5 minutes of placing these hemostatic agents over the wound both would then copiously irrigated with pulse lavage. The defect on the left side measured 14 x 8 cm, on the on the right side it measured 16 x 6 cm, however on mobilizing both flaps were elevated on both sides. It was noted that a tension-free closure could be pursued. However given the level of infection that was present it was felt that was not prudent to perform definitive flap advancement at this time as such, the wound was partially closed superiorly and inferiorly with wet-to-dry dressing placed within the wound. The plan will be to bring the patient back within 72 to 96 hours to perform definitive flap inset over a drain. The patient tolerated the procedure well. There is no complications. Corry Cantu M.D. DR: Yariel JOB#: [id number] CC:
--- NOTE | 2017-02-02 18:30 | General Progress Note ---
Assessment/Plan Problem List: (1) Abscess Assessment & Plan: s/p debridement of bilateral axillae POD#6 s/p Closure of bilateral axillary and left breast wounds POD#3 f/u blood cx Cont IV abx Pain control Supp care A total of 32 mins of additional time was spent with this patient, care coordination and counseling, in addition to the face to face time with the patient. ICD Codes: L02.91 - Cutaneous abscess, unspecified SNOMED: [id number] Subjective Date patient seen: Feb 02, 2017 Time patient seen: 18:30 ROS Limited/Unobtainable: No Allergies: Coded Allergies: No Known Allergies (Unverified , 01/26/17) Subjective s/p debridement of bilateral axillae POD#6, s/p Closure of bilateral axillary and left breast wounds POD#3 without periop or postop complications. Denied chest pain or dyspnea, no n/v, postop pain well controlled. Objective Last 24 Hour Vital Signs Date Time Temp Pulse Resp B/P Pulse Ox O2 Delivery O2 Flow Rate FiO2 02/02/17 18:12 18 02/02/17 16:54 Nasal Cannula 2.0 28 02/02/17 16:54 94 Nasal Cannula 2.0 28 02/02/17 16:15 97.0 71 20 116/55 100 Room Air 02/02/17 14:28 98.1 77 20 128/85 100 Nasal Cannula 2.0 02/02/17 14:00 18 02/02/17 12:30 98.1 67 20 131/54 100 Nasal Cannula 2.0 02/02/17 12:00 16 02/02/17 10:26 97.6 73 20 130/72 100 Nasal Cannula 2.0 02/02/17 10:05 15 02/02/17 10:05 98.7 02/02/17 10:00 15 02/02/17 10:00 73 15 138/62 100 Nasal Cannula 3.0 02/02/17 09:54 98.7 75 16 140/66 100 Nasal Cannula 3.0 02/02/17 09:45 71 13 148/57 100 Nasal Cannula 3.0 02/02/17 09:45 13 02/02/17 09:40 73 15 132/57 100 Nasal Cannula 3.0 02/02/17 09:35 97.8 86 14 131/59 100 Nasal Cannula 3.0 02/02/17 09:30 87 16 133/48 100 Nasal Cannula 3.0 02/02/17 09:30 15 02/02/17 09:21 18 02/02/17 09:20 72 18 131/55 100 Nasal Cannula 3.0 02/02/17 09:10 74 19 122/57 100 Nasal Cannula 3.0 02/02/17 09:00 70 18 123/55 96 Simple Mask 6.0 02/02/17 09:00 68 20 99 02/02/17 08:55 67 19 127/68 96 Simple Mask 6.0 02/02/17 08:51 98.3 70 18 144/67 98 Simple Mask 6.0 02/02/17 04:00 98.1 59 18 122/61 100 Room Air 02/01/17 20:00 98.8 78 18 135/91 99 Room Air Intake and Output 02/01/17 02/02/17 19:00 07:00 Intake Total 580 ml 1300 ml Output Total 442 ml Balance 580 ml 858 ml Intake Oral 480 ml 300 ml IV Total 100 ml 1000 ml Output Urine Total 400 ml Drainage Total 42 ml # Voids 2 1 Height (Feet): 5 Height (Inches): 7.00 Weight (Pounds): 190 Objective General: alert, cooperative, no distress, appears stated age Head: normocephalic, without obvious abnormality, atraumatic Eyes: conjunctivae/corneas clear. PERRL, EOM's intact Throat: lips, mucosa, and tongue normal. MMM Neck: supple, symmetrical, trachea midline, and no JVD Lungs: clear to auscultation bilaterally Heart: regular rate and rhythm, S1, S2 normal, no murmur, click, rub or gallop Abdomen: soft, non-tender, non-distended, bowel sounds normal; no masses or organomegaly Extremities: axillae dressings, c/d/i Pulses: 2+ and symmetric Skin: skin color, texture, turgor normal; no rashes or lesions Neurologic: grossly normal, no focal deficits GADIEL BLOCK Feb 02, 2017 18:30
[2017-02-02] MEDS: PCA shift volume MISC SCH (19:30)
[2017-02-03] VITALS: BP 133/51
[2017-02-03 04:00] VITALS: BP 115/51
[2017-02-03] MEDS: ceFAZolin sod 1 GM in D5W 55 ML IVPB SCH ×2 (06:52→18:07)
[2017-02-03] MEDS: PCA shift volume MISC SCH ×2 (07:11→19:20)
[2017-02-03 08:00] VITALS: BP 121/57
[2017-02-03] MEDS: Docusate 100mg cap ORAL SCH ×2 (08:34→21:14)
[2017-02-03] MEDS: Heparin 5000 units/ml inj SUBQ SCH ×2 (08:41→22:28)
[2017-02-03] MEDS ORDERED: D5NS 1000ml IV ONE (10:42)
[2017-02-03] MEDS ORDERED: Tubing IV Secondary IV ONE (10:42)
[2017-02-03 12:00] VITALS: BP 131/76
--- NOTE | 2017-02-03 12:45 | 48 Hour Post Anesthesia Eval ---
Post Anesthesia Evaluation Procedure: Excision of bilateral groin hydradenitis Date of Evaluation: Feb 03, 2017 Time of Evaluation: 08:15 Blood Pressure Systolic: 121 0: 57 Pulse Rate: 67 Respiratory Rate: 18 Temperature (Fahrenheit): 95.7 O2 Sat by Pulse Oximetry: 100 Airway: patent Nausea: No Vomiting: No Pain Intensity: 3 Hydration Status: adequate Cardiopulmonary Status: at baseline Mental Status/LOC: patient returned to baseline Post-Anesthesia Complications: 0 Follow-up care needed: N/A - further care as per primary team NEFTALI LEWIS M.D. Feb 03, 2017 12:45
[2017-02-03] MEDS: D5NS 1,000 ML IV SCH ×2 (12:55→22:24)
[2017-02-03] MEDS ORDERED: Magnesium Citrate Liq Btl ORAL ONE (13:30)
[2017-02-03 16:00] VITALS: BP 131/74
--- NOTE | 2017-02-03 19:09 | General Progress Note ---
Assessment/Plan Problem List: (1) Abscess Assessment & Plan: s/p debridement of bilateral axillae POD#7 s/p Closure of bilateral axillary and left breast wounds POD#4 f/u blood cx Cont IV abx Pain control Supp care A total of 32 mins of additional time was spent with this patient, care coordination and counseling, in addition to the face to face time with the patient. ICD Codes: L02.91 - Cutaneous abscess, unspecified SNOMED: 749688493 Subjective Date patient seen: Feb 03, 2017 Time patient seen: 19:09 ROS Limited/Unobtainable: No Allergies: Coded Allergies: No Known Allergies (Unverified , 01/26/17) Subjective s/p debridement of bilateral axillae POD#7, s/p Closure of bilateral axillary and left breast wounds POD#4 without periop or postop complications. Denied chest pain or dyspnea, no n/v, postop pain well controlled. Objective Last 24 Hour Vital Signs Date Time Temp Pulse Resp B/P Pulse Ox O2 Delivery O2 Flow Rate FiO2 02/03/17 17:45 98.2 02/03/17 16:00 98.2 71 18 131/74 98 Room Air 02/03/17 16:00 18 02/03/17 12:45 67 18 100 02/03/17 12:00 98.1 68 18 131/76 99 Room Air 02/03/17 12:00 18 02/03/17 08:00 95.7 67 18 121/57 100 Room Air 02/03/17 07:57 18 02/03/17 04:00 18 02/03/17 04:00 98.4 71 18 115/51 100 Room Air 02/03/17 02:20 93 Nasal Cannula 2.0 28 02/03/17 02:20 Nasal Cannula 2.0 28 02/03/17 00:00 18 02/03/17 00:00 98.6 72 18 133/51 100 Room Air 02/02/17 20:00 98.9 76 18 119/53 100 Room Air 02/02/17 20:00 18 Intake and Output 02/02/17 02/03/17 19:00 07:00 Intake Total 2035 ml 1155 ml Output Total 1785 ml Balance 250 ml 1155 ml Intake Oral 880 ml IV Total 1155 ml 1155 ml Output Urine Total 1600 ml Drainage Total 85 ml Estimated Blood Loss 100 ml # Voids 2 Height (Feet): 5 Height (Inches): 7.00 Weight (Pounds): 190 Objective General: alert, cooperative, no distress, appears stated age Head: normocephalic, without obvious abnormality, atraumatic Eyes: conjunctivae/corneas clear. PERRL, EOM's intact Throat: lips, mucosa, and tongue normal. MMM Neck: supple, symmetrical, trachea midline, and no JVD Lungs: clear to auscultation bilaterally Heart: regular rate and rhythm, S1, S2 normal, no murmur, click, rub or gallop Abdomen: soft, non-tender, non-distended, bowel sounds normal; no masses or organomegaly Extremities: axillae dressings, c/d/i Pulses: 2+ and symmetric Skin: skin color, texture, turgor normal; no rashes or lesions Neurologic: grossly normal, no focal deficits GADIEL BLOCK Feb 03, 2017 19:09
[2017-02-03 20:21] VITALS: BP 127/67
[2017-02-04 00:39] VITALS: BP 130/70
[2017-02-04] MEDS: ceFAZolin sod 1 GM in D5W 55 ML IVPB SCH ×3 (01:41→18:24)
[2017-02-04 04:00] VITALS: BP 129/75
[2017-02-04] MEDS: PCA shift volume MISC SCH ×2 (07:01→19:00)
[2017-02-04] MEDS: D5NS 1,000 ML IV SCH ×2 (08:30→18:26)
[2017-02-04] MEDS ORDERED: Rate Change PCA 1 Each MISC PRN (09:30)
[2017-02-04] MEDS ORDERED: Tubing IV Secondary IV ONE (09:58)
[2017-02-04] MEDS ORDERED: D5NS 1000ml IV ONE (09:58)
[2017-02-04] MEDS: Docusate 100mg cap ORAL SCH ×2 (10:00→21:00)
[2017-02-04] MEDS: Lactulose 20gm/30ml UDC ORAL SCH ×3 (10:00→18:00)
[2017-02-04] MEDS: Heparin 5000 units/ml inj SUBQ SCH ×2 (10:01→21:00)
[2017-02-04] MEDS ORDERED: Naloxone 2 MG in D5W 500ml 498 ML IV SCH (10:15)
[2017-02-04] MEDS ORDERED: Naloxone 0.4mg/ml Inj IVP PRN (10:15)
--- NOTE | 2017-02-04 10:51 | General Progress Note ---
Progress Note Progress Note Pt seen and examined. Doing well. Incisional wound vac removed and the flaps look well in the axilla. Groin wounds look healthy and will repack. To OR on Monday for definitive groin wound closures. SADAF Gaspar MD Feb 04, 2017 10:51
[2017-02-04 12:00] VITALS: BP 132/83
--- NOTE | 2017-02-04 12:00 | General Progress Note ---
Assessment/Plan Problem List: (1) Abscess Assessment & Plan: s/p debridement of bilateral axillae POD#8 s/p Closure of bilateral axillary and left breast wounds POD#5 f/u blood cx Cont IV abx Pain control Supp care A total of 32 mins of additional time was spent with this patient, care coordination and counseling, in addition to the face to face time with the patient. ICD Codes: L02.91 - Cutaneous abscess, unspecified SNOMED: [id number] Subjective Date patient seen: Feb 04, 2017 Time patient seen: 11:59 ROS Limited/Unobtainable: No Allergies: Coded Allergies: No Known Allergies (Unverified , 01/26/17) Subjective s/p debridement of bilateral axillae POD#8, s/p Closure of bilateral axillary and left breast wounds POD#5 without periop or postop complications. Denied chest pain or dyspnea, no n/v, postop pain well controlled. Objective Last 24 Hour Vital Signs Date Time Temp Pulse Resp B/P Pulse Ox O2 Delivery O2 Flow Rate FiO2 02/04/17 10:48 98.2 02/04/17 08:00 18 02/04/17 07:34 Room Air 02/04/17 07:34 97 Room Air 02/04/17 04:17 18 02/04/17 04:00 98.2 85 19 129/75 97 Room Air 02/04/17 00:39 98.1 80 19 130/70 98 Room Air 02/04/17 00:06 18 02/03/17 20:21 97.7 84 18 127/67 97 Room Air 02/03/17 20:11 18 02/03/17 17:45 98.2 02/03/17 16:00 98.2 71 18 131/74 98 Room Air 02/03/17 16:00 18 02/03/17 12:45 67 18 100 02/03/17 12:00 98.1 68 18 131/76 99 Room Air 02/03/17 12:00 18 Intake and Output 02/03/17 02/04/17 19:00 07:00 Intake Total 1255 ml 695 ml Output Total 2650 ml 878 ml Balance -1395 ml -183 ml Intake Oral 400 ml 240 ml IV Total 855 ml 455 ml Output Urine Total 2600 ml 850 ml Drainage Total 50 ml 28 ml Height (Feet): 5 Height (Inches): 7.00 Weight (Pounds): 190 Objective General: alert, cooperative, no distress, appears stated age Head: normocephalic, without obvious abnormality, atraumatic Eyes: conjunctivae/corneas clear. PERRL, EOM's intact Throat: lips, mucosa, and tongue normal. MMM Neck: supple, symmetrical, trachea midline, and no JVD Lungs: clear to auscultation bilaterally Heart: regular rate and rhythm, S1, S2 normal, no murmur, click, rub or gallop Abdomen: soft, non-tender, non-distended, bowel sounds normal; no masses or organomegaly Extremities: axillae dressings, c/d/i Pulses: 2+ and symmetric Skin: skin color, texture, turgor normal; no rashes or lesions Neurologic: grossly normal, no focal deficits GADIEL BLOCK Feb 04, 2017 12:00
[2017-02-04 16:00] VITALS: BP 120/76
[2017-02-04 20:00] VITALS: BP 140/63
[2017-02-05] VITALS: BP 129/61
[2017-02-05] MEDS: ceFAZolin sod 1 GM in D5W 55 ML IVPB SCH ×3 (01:01→17:23)
[2017-02-05 04:00] VITALS: BP 129/61
[2017-02-05] MEDS: D5NS 1,000 ML IV SCH ×2 (04:24→14:30)
[2017-02-05] MEDS: PCA HYDROmorphone 1mg/ml 30 ML IV PRN (06:10)
[2017-02-05] MEDS: PCA shift volume MISC SCH ×2 (07:04→19:19)
[2017-02-05 08:00] VITALS: BP 107/42
[2017-02-05] MEDS: Lactulose 20gm/30ml UDC ORAL SCH ×3 (08:40→17:23)
[2017-02-05] MEDS: Heparin 5000 units/ml inj SUBQ SCH ×2 (08:40→21:00)
[2017-02-05] MEDS: Docusate 100mg cap ORAL SCH ×2 (08:41→21:00)
[2017-02-05 12:00] VITALS: BP 114/67
--- NOTE | 2017-02-05 14:13 | General Progress Note ---
Assessment/Plan Problem List: (1) Abscess ICD Codes: L02.91 - Cutaneous abscess, unspecified SNOMED: [id number] (2) Hidradenitis suppurativa ICD Codes: L73.2 - Hidradenitis suppurativa SNOMED: [id number] Status: stable Assessment/Plan s/p debridement of bilateral axillae POD#9 s/p Closure of bilateral axillary and left breast wounds POD#6 NPO at [facility] for OR tomorrow for definitive groin wound closures. f/u blood cx Cont IV abx Pain control Supp care Appreciate surgery rc's Wound care per surgery A total of 32 mins of additional time was spent with this patient face to face in addition to normal encounter time for care coordination and counseling. Subjective Date patient seen: Feb 05, 2017 Time patient seen: 14:12 ROS Limited/Unobtainable: No Constitutional: Reports: no symptoms HEENT: Reports: no symptoms Cardiovascular: Reports: no symptoms Respiratory: Reports: no symptoms Gastrointestinal/Abdominal: Reports: no symptoms Genitourinary: Reports: no symptoms Neurologic/Psychiatric: Reports: no symptoms Endocrine: Reports: no symptoms Hematologic/Lymphatic: Reports: no symptoms Allergies: Coded Allergies: No Known Allergies (Unverified , 01/26/17) All Systems: reviewed and negative except above Subjective Pt doing well. Pain controlled Having some itching, asking for benadryl Ambulating Denies f/c, n/v, d/c, chest pain, SOB Objective Last 24 Hour Vital Signs Date Time Temp Pulse Resp B/P Pulse Ox O2 Delivery O2 Flow Rate FiO2 02/05/17 12:00 18 02/05/17 12:00 98.8 69 18 114/67 98 Room Air 02/05/17 08:00 98.2 82 17 107/42 96 Room Air 02/05/17 08:00 18 02/05/17 06:40 98.8 02/05/17 04:00 18 02/05/17 04:00 98.8 74 18 129/61 98 Room Air 2.0 28 02/05/17 00:00 18 02/05/17 00:00 98.8 74 20 129/61 98 Room Air 02/04/17 20:00 97.7 64 18 140/63 100 Room Air 02/04/17 20:00 16 02/04/17 16:00 20 02/04/17 16:00 98.1 92 20 120/76 99 Room Air 02/04/17 16:00 16 Intake and Output 02/04/17 02/05/17 19:00 07:00 Intake Total 520 ml 900 ml Output Total 525 ml 1230 ml Balance -5 ml -330 ml Intake Oral 420 ml IV Total 100 ml 900 ml Output Urine Total 500 ml 1200 ml Drainage Total 25 ml 30 ml # Bowel Movements 2 Height (Feet): 5 Height (Inches): 7.00 Weight (Pounds): 190 Objective General: alert, cooperative, no distress, appears stated age Head: normocephalic, without obvious abnormality, atraumatic Eyes: conjunctivae/corneas clear. PERRL, EOM's intact Throat: lips, mucosa, and tongue normal. MMM Neck: supple, symmetrical, trachea midline, and no JVD Lungs: clear to auscultation bilaterally Heart: regular rate and rhythm, S1, S2 normal, no murmur, click, rub or gallop Abdomen: soft, non-tender, non-distended, bowel sounds normal; no masses or organomegaly Extremities: extremities normal, atraumatic, no cyanosis or edema Dressings c/d/i Pulses: 2+ and symmetric Skin: skin color, texture, turgor normal; no rashes or lesions Neurologic: grossly normal, no focal deficits Patsy Bajwa M.D. Feb 05, 2017 14:13
[2017-02-05 16:00] VITALS: BP 109/64
[2017-02-05 20:00] VITALS: BP 160/62
[2017-02-06] VITALS (15 sets, daily range): BP systolic 110–164; BP diastolic 58–76
[2017-02-06] MEDS: D5NS 1,000 ML IV SCH ×3 (00:36→21:16)
[2017-02-06] MEDS: ceFAZolin sod 1 GM in D5W 55 ML IVPB SCH ×3 (00:57→17:56)
[2017-02-06] MEDS: PCA HYDROmorphone 1mg/ml 30 ML IV PRN ×2 (06:30→12:45)
[2017-02-06] MEDS: PCA shift volume MISC SCH ×2 (07:05→19:00)
[2017-02-06] MEDS ORDERED: Glycopyrrolate 0.2mg/ml 1ml Vial ONE (09:00)
[2017-02-06] MEDS: Lactulose 20gm/30ml UDC ORAL SCH ×3 (09:00→17:55)
[2017-02-06] MEDS ORDERED: Propofol 10mg/ml 20ml IV ONE (09:00)
[2017-02-06] MEDS ORDERED: Succinylcholine 20mg/ml 10ml vial ONE (09:00)
[2017-02-06] MEDS ORDERED: Morphine Sulfate 10mg/ml Inj ONE (09:00)
[2017-02-06] MEDS ORDERED: NS Irrig 1000ml ONE (09:00)
[2017-02-06] MEDS ORDERED: Sterile Water Irrig 1000ml IRRIG ONE (09:00)
[2017-02-06] MEDS: Docusate 100mg cap ORAL SCH ×3 (09:00→21:14)
[2017-02-06] MEDS ORDERED: Neostigmine 1mg/ml 10ml Inj ONE (09:00)
[2017-02-06] MEDS: Heparin 5000 units/ml inj SUBQ SCH ×2 (09:00→21:16)
[2017-02-06] MEDS ORDERED: Nimbex 2mg/ml Inj 10ML IVP ONE (09:00)
[2017-02-06] MEDS ORDERED: LR 1000ml ONE (09:00)
[2017-02-06] MEDS ORDERED: Ketorolac 30mg Inj ONE (09:00)
[2017-02-06] MEDS ORDERED: Midazolam 2mg/2ml Inj ONE (09:00)
[2017-02-06] MEDS ORDERED: fentaNYL 100 mcg/2 mL IV ONE (09:00)
[2017-02-06] MEDS ORDERED: Bacitracin Oint 15gm Tube TOPIC ONE (09:01)
[2017-02-06] MEDS ORDERED: EPINEPHrine 1mg/1ml Amp ONE (09:01)
[2017-02-06] MEDS ORDERED: Lidocaine 1% 10mg/ml/Epi 0.005mg/ml 30ml vial INJ ONE (09:02)
[2017-02-06] MEDS ORDERED: Bacitracin 50000 Units Vial ONE (09:02)
--- NOTE | 2017-02-06 09:36 | Anethesia Preoperative Eval ---
Anesthesia Pre-op PMH/ROS General Date of Evaluation: Feb 06, 2017 Time of Evaluation: 09:33 Anesthesiologist: Kiah ASA Score: ASA 2 Mallampati Score Class I : Soft palate, uvula, fauces, pillars visible Class II: Soft palate, uvula, fauces visible Class III: Soft palate, base of uvula visible Class IV: Only hard plate visible Mallampati Classification: Class II Surgeon: Pepe Diagnosis: Recurrent HS Surgical Procedure: Bilateral groin wounds revision Anesthesia History: none Family History: no anesthesia problems Allergies: Coded Allergies: No Known Allergies (Unverified , 01/26/17) Past Medical History Cardiovascular: Denies: CAD, HTN, MT, arrhythmia, other, valve dz Pulmonary: Denies: COPD, SUKHWINDER, asthma, other Gastrointestinal/Genitourinary: Reports: GERD, Denies: CRI, ESRD, other Neurologic/Psychiatric: Reports: depression/anxiety, Denies: CVA, TIA, dementia, other Endocrine: Denies: DM, hypothyroidism, other, steroids HEENT: Denies: [place] (L), [place] (R), cataract (L), cataract (R), glaucoma, other Hematology/Immune: Reports: anemia - mild, Denies: DVT, bleeding disorder, other Musculoskeletal/Integumentary: Denies: DDD, DJD, OA, RA, edema, other PMH Narrative: as above PSxH Narrative: see chart Anesthesia Pre-op Phys. Exam Physician Exam Last Vital Signs Date Time Temp Pulse Resp B/P Pulse Ox O2 Delivery O2 Flow Rate FiO2 02/06/17 08:15 97.1 86 20 110/59 100 Room Air 02/05/17 19:30 21 02/05/17 04:00 2.0 Constitutional: NAD Neurologic: CN 2-12 intact Cardiovascular: RRR, no M/R/G Respiratory: CTA Gastrointestinal: S/NT/ND Airway Exam Mallampati Score: Class II MO: full Neck: flexible ROM: full Teeth: intact Dentures: no lower, no upper Anesthesia Pre-op A/P Labs see chart Risk Assessment & Plan Assessment: ASA 2 Plan: GA with ETT Status Change Before Surgery: No Pre-Antibiotics Drug: Ancef 1gr. Given Within 1 Hr of Incision: Yes Time Given: 09:55 SHANIA MATTA M.D. Feb 06, 2017 09:36
--- NOTE | 2017-02-06 09:37 | Operative Note - PDOC ---
Operative Note Operative Note Pre-op Diagnosis: Bilateral groin wounds Procedure: Bilateral groin wound closure Surgeon: Pepe Industrial Radiographer: Tyrone Anesthesia: general Specimen: yes Complications: none Condition: stable Estimated Blood Loss: minimal Drains: none SADAF HICSK Feb 06, 2017 09:37
--- NOTE | 2017-02-06 09:37 | Pre-Procedure Note/Attestation ---
Pre-Procedure Note/Attestation Complete Prior to Procedure Planned Procedure: bilateral Procedure Narrative: Bilateral groin wound closure Indications for Procedure Pre-Operative Diagnosis: Bilateral groin wounds Attestation I attest that I discussed the nature of the procedure; its benefits; risks and complications; and alternatives (and the risks and benefits of such alternatives ), prior to the procedure, with the patient (or the patient's legal c s s representative). I attest that, if there was a reasonable possibility of needing a blood transfusion, the patient (or the patient's legal c s s representative) was given the [facility] standardized written summary, pursuant to the Geovanny [place] Blood Safety Act ([place] Health and Safety Code # 1645, as amended). I attest that I re-evaluated the patient just prior to the surgery and that there has been no change in the patient's H&P, except as documented below: SADAF HICKS Feb 06, 2017 09:37
[2017-02-06] MEDS ORDERED: NS Irrig 1000ml IRRIG ONE (10:19)
[2017-02-06] MEDS ORDERED: Surgicel 4in x 8in TOPIC ONE (10:26)
[2017-02-06] MEDS ORDERED: LR 1000ml 1,000 ML IVLG SCH (10:29)
[2017-02-06] MEDS ORDERED: Hydromorphone 0.5mg/0.5ml inj IVP PRN (10:30)
[2017-02-06] MEDS ORDERED: Ketorolac 30mg Inj IV PRN (10:30)
[2017-02-06] MEDS ORDERED: Metoclopramide 10mg/2ml Inj IVP PRN (10:30)
[2017-02-06] MEDS ORDERED: DiphenhydrAMINE 50mg/ml Inj IVP PRN (10:30)
[2017-02-06] MEDS ORDERED: Meperidine 25mg/0.5ml Inj IV PRN (10:30)
[2017-02-06] MEDS ORDERED: Midazolam 2mg/2ml Inj IVP PRN (10:30)
--- NOTE | 2017-02-06 11:22 | General Progress Note ---
Assessment/Plan Problem List: (1) Abscess Assessment & Plan: s/p debridement of bilateral axillae POD#9 s/p Closure of bilateral axillary and left breast wounds POD#6 Further OR wound surgery today f/u blood cx Cont IV abx Pain control Supp care ICD Codes: L02.91 - Cutaneous abscess, unspecified SNOMED: [id number] Subjective Date patient seen: Feb 06, 2017 Time patient seen: 11:20 ROS Limited/Unobtainable: No Allergies: Coded Allergies: No Known Allergies (Unverified , 01/26/17) Subjective s/p debridement of bilateral axillae POD#9, s/p Closure of bilateral axillary and left breast wounds POD#6 without periop or postop complications. Heading to OR today for further wound surgery. No significant overnight events, pt in OR unable to see/examine Objective Last 24 Hour Vital Signs Date Time Temp Pulse Resp B/P Pulse Ox O2 Delivery O2 Flow Rate FiO2 02/06/17 08:15 97.1 86 20 110/59 100 Room Air 02/06/17 08:00 18 02/06/17 07:00 97.5 02/06/17 04:14 97.5 83 18 130/70 99 Room Air 02/06/17 04:00 18 02/06/17 00:09 97.9 85 19 132/65 100 Room Air 02/06/17 00:02 18 02/05/17 20:00 18 02/05/17 20:00 98.4 85 18 160/62 100 Room Air 02/05/17 19:30 Room Air 21 02/05/17 19:30 98 Room Air 21 02/05/17 16:00 18 02/05/17 16:00 98.2 64 17 109/64 98 Room Air 02/05/17 12:00 18 02/05/17 12:00 98.8 69 18 114/67 98 Room Air Intake and Output 02/05/17 02/06/17 19:00 07:00 Intake Total 1560 ml 640 ml Output Total 623 ml 750 ml Balance 937 ml -110 ml Intake Oral 650 ml 240 ml IV Total 910 ml 400 ml Output Urine Total 600 ml 750 ml Drainage Total 23 ml Height (Feet): 5 Height (Inches): 5.00 Weight (Pounds): 190 GADIEL BLOCK Feb 06, 2017 11:22
[2017-02-06] MEDS ORDERED: Zolpidem 5mg tab ORAL PRN (12:00)
[2017-02-06] MEDS ORDERED: Rate Change PCA 1 Each MISC PRN (12:30)
[2017-02-06] MEDS ORDERED: PCA HYDROmorphone 1mg/ml 30 ML IV PRN (12:30)
[2017-02-06] MEDS ORDERED: Naloxone 0.4mg/ml Inj IVP PRN (12:30)
--- NOTE | 2017-02-06 12:56 | Immediate Post-Op Evaluation ---
Immediate Post-Op Evalulation Immediate Post-Op Evalulation Procedure: Bilateral groins wounds revision and closure Date of Evaluation: Feb 06, 2017 Time of Evaluation: 11:56 IV Fluids: 800 Blood Products: n0ne Estimated Blood Loss: <50 Urinary Output: 650 Blood Pressure Systolic: 116 Blood Pressure Diastolic: 72 Pulse Rate: 86 Respiratory Rate: 22 O2 Sat by Pulse Oximetry: 99 Temperature (Fahrenheit): 97.5 Pain Score (1-10): 2 Nausea: No Vomiting: No Complications none Patient Status: reacts, patent, extubated, none Hydration Status: adequate SHANIA MATTA M.D. Feb 06, 2017 12:56
--- NOTE | 2017-02-06 16:30 | Operative Note - Dictated ---
DATE OF OPERATION: 02/06/2017 PREOPERATIVE DIAGNOSIS: Bilateral open groin. POSTOPERATIVE DIAGNOSIS: Bilateral open groin. PROCEDURE: 1. Preparation of left groin wound for flap closure. 2. Left medial thigh flap readvancement for closure of left groin wound, measuring 80 sq cm. 3. Reelevation of the left medial groin flap for closure of left groin wound. 4. Preparation of right groin wound for flap closure. 5. Medial thigh flap readvancement for closure of right groin wound, measuring 100 sq cm. 6. Readvanced in the medial right groin flap for closure of right groin wound, measuring 100 sq cm. SURGEON: Corry Cantu M.D. INSURANCE CONSULTANT: Cynthia Hansen M.D. ANESTHESIA: General. COMPLICATIONS: None. DRAINS: Included one DAMIEN in each groin. DISPOSITION: Stable to the recovery room. INDICATIONS FOR SURGERY: This is a 26-year-old female, who is now four days postoperative from radical excision of infected groin tissue masses, who has undergone on wet-to-dry dressing changes and is ready to undergo definitive flap advancement closure of her wounds. She understood the risks and benefits of surgery and agrees to proceed. DETAILS OF THE OPERATION: The patient was brought to the operating room and laid in lithotomy position on the operating table. Her bilateral groin wounds were prepped and draped in sterile usual fashion. We first began by debriding the left groin wound, which measured approximately 80 sq cm. Debriding of the nonviable tissue in preparation for flap readvancement and medial thigh flap that was previously advanced up to the readvanced by further release of the proximal distal attachments with perfusion from the superficial femoral artery maintained and was further advanced and we were able to also perform medial groin flap readvancement of the tissues medially. Again these were based off of perforators of the pudendal artery as well as the superficial circumflex iliac artery with medial groin flap in the medial thigh flap, fully readvanced. The groin wound was closed after pulse lavage irrigation over 15 [place]es-Ty drain. The flaps were brought in opposition with using #0 and 2-0 Vicryl sutures and a 2-0 Prolene were used to close the skin. In a similar fashion the contralateral right groin was addressed with debridement and preparation of the right groin wound, which measured 100 sq cm for flap closure. Nonviable tissue was removed and the medial thigh flap that was based off of the superficial femoral artery perforators was readvanced further with proximal distal relaxing incisions. The medial groin flap that had been previously elevated based off of perforators the pudendal artery, the superficial circumflex artery was further released and readvanced to allow for closure over DAMIEN drain. The two flaps were brought together in opposition after hemostasis was achieved using #0 and 2-0 Vicryl sutures and 2-0 Prolene was used to close the skin. The DAMIEN drains that were placed and were secured using 3-0 nylon sutures. The patient tolerated the procedure well. There was no complications. Corry Cantu M.D. DR: LYNSEY JOB#: [id number] CC:
--- NOTE | 2017-02-06 17:52 | Operative Note - PDOC ---
Operative Note Operative Note Pre-op Diagnosis: Bilateral groin wounds Procedure: Bilateral groin wound closure Post-op Diagnosis: same as pre-op Surgeon: Pepe Retail Visual Merchandiser: Tyrone Anesthesia: general Specimen: yes Complications: none Condition: stable Estimated Blood Loss: minimal Drains: DAMIEN Implant(s) used?: No SADAF HICKS Feb 06, 2017 17:52
[2017-02-06] MEDS ORDERED: Heparin 5000 units/ml inj SUBQ SCH (21:00)
[2017-02-07 00:19] VITALS: BP 125/60
[2017-02-07] MEDS: ceFAZolin sod 1 GM in D5W 55 ML IVPB SCH ×3 (02:24→18:28)
[2017-02-07 04:29] VITALS: BP 128/66
[2017-02-07] MEDS: D5NS 1,000 ML IV SCH ×3 (06:30→18:29)
[2017-02-07] MEDS: PCA shift volume MISC SCH ×2 (07:21→19:00)
[2017-02-07 08:00] VITALS: BP 119/53
[2017-02-07] MEDS: Docusate 100mg cap ORAL SCH ×2 (09:00→21:00)
[2017-02-07] MEDS: Lactulose 20gm/30ml UDC ORAL SCH ×3 (09:00→18:00)
[2017-02-07] MEDS: Heparin 5000 units/ml inj SUBQ SCH ×2 (09:31→21:21)
--- NOTE | 2017-02-07 09:39 | 48 Hour Post Anesthesia Eval ---
Post Anesthesia Evaluation Procedure: Bilateral groins wounds revision and closure Date of Evaluation: Feb 07, 2017 Time of Evaluation: 11:10 Blood Pressure Systolic: 119 0: 53 Pulse Rate: 68 Respiratory Rate: 20 Temperature (Fahrenheit): 98.2 O2 Sat by Pulse Oximetry: 98 Airway: patent Nausea: No Vomiting: No Pain Intensity: 4 Hydration Status: adequate Cardiopulmonary Status: Stable Mental Status/LOC: patient returned to baseline Follow-up Care/Observations: As per surgery Post-Anesthesia Complications: No anesthetic complication Follow-up care needed: N/A LOW ZUNIGA M.D. Feb 07, 2017 09:39
[2017-02-07 12:00] VITALS: BP 118/56
--- NOTE | 2017-02-07 14:30 | General Progress Note ---
Progress Note Progress Note Pt seen and examined. POD # 1 from closure of groin wounds. Doing well. Dressings CDI. Will take down dressings in AM. SADAF Gaspar MD Feb 07, 2017 14:30
--- NOTE | 2017-02-07 14:30 | General Progress Note ---
Assessment/Plan Problem List: (1) Abscess Assessment & Plan: s/p groin wound closure POD#1 s/p debridement of bilateral axillae POD#10 s/p Closure of bilateral axillary and left breast wounds POD#7 f/u blood cx Cont IV abx Pain control Supp care ICD Codes: L02.91 - Cutaneous abscess, unspecified SNOMED: 205368946 Subjective Date patient seen: Feb 07, 2017 Time patient seen: 14:30 ROS Limited/Unobtainable: No Allergies: Coded Allergies: No Known Allergies (Unverified , 01/26/17) Subjective s/p debridement of bilateral axillae, s/p Closure of bilateral axillary and left breast wounds without periop or postop complications. Heading to OR today for further wound surgery. No significant overnight events, pt in OR unable to see/examine Objective Last 24 Hour Vital Signs Date Time Temp Pulse Resp B/P Pulse Ox O2 Delivery O2 Flow Rate FiO2 02/07/17 12:00 99.0 91 16 118/56 99 Room Air 02/07/17 12:00 18 02/07/17 09:39 68 20 98 02/07/17 08:00 98.2 68 16 119/53 98 Room Air 02/07/17 08:00 20 02/07/17 04:29 97.5 85 17 128/66 97 Room Air 02/07/17 04:00 16 02/07/17 00:19 98.1 82 19 125/60 97 Room Air 02/07/17 00:00 18 02/06/17 20:23 97.9 77 18 120/58 98 Room Air 02/06/17 20:00 18 02/06/17 16:07 20 02/06/17 15:53 98.6 87 20 127/76 100 Room Air Intake and Output 02/06/17 02/07/17 19:00 07:00 Intake Total 1860 ml 1240 ml Output Total 785 ml 815 ml Balance 1075 ml 425 ml Intake Oral 760 ml 240 ml IV Total 1100 ml 1000 ml Output Urine Total 650 ml 750 ml Drainage Total 50 ml Estimated Blood Loss 30 ml Other 55 ml 65 ml # Voids 1 Height (Feet): 5 Height (Inches): 5.00 Weight (Pounds): 190 GADIEL BLOCK Feb 07, 2017 14:30
[2017-02-07 16:00] VITALS: BP 133/67
[2017-02-07] MEDS: PCA HYDROmorphone 1mg/ml 30 ML IV PRN (18:41)
[2017-02-07 20:00] VITALS: BP 98/58
[2017-02-08 00:21] VITALS: BP 103/56
[2017-02-08] MEDS: ceFAZolin sod 1 GM in D5W 55 ML IVPB SCH ×3 (02:07→17:15)
[2017-02-08 04:00] VITALS: BP 120/64
[2017-02-08] MEDS: D5NS 1,000 ML IV SCH ×3 (06:19→22:32)
[2017-02-08] MEDS: PCA shift volume MISC SCH ×2 (07:11→19:19)
[2017-02-08 08:00] VITALS: BP 110/53
[2017-02-08] MEDS: Docusate 100mg cap ORAL SCH ×3 (08:59→22:35)
[2017-02-08] MEDS: Lactulose 20gm/30ml UDC ORAL SCH ×3 (08:59→17:17)
[2017-02-08] MEDS: Heparin 5000 units/ml inj SUBQ SCH ×2 (08:59→22:33)
[2017-02-08 12:00] VITALS: BP 121/60
[2017-02-08 16:00] VITALS: BP 119/60
[2017-02-08] MEDS: PCA HYDROmorphone 1mg/ml 30 ML IV PRN (17:48)
--- NOTE | 2017-02-08 18:27 | General Progress Note ---
Assessment/Plan Problem List: (1) Abscess Assessment & Plan: s/p groin wound closure POD#2 s/p debridement of bilateral axillae POD#11 s/p Closure of bilateral axillary and left breast wounds POD#8 f/u blood cx Cont IV abx Pain control Supp care ICD Codes: L02.91 - Cutaneous abscess, unspecified SNOMED: 046539315 Subjective Date patient seen: Feb 08, 2017 Time patient seen: 18:26 ROS Limited/Unobtainable: No Allergies: Coded Allergies: No Known Allergies (Unverified , 01/26/17) Subjective s/p debridement of bilateral axillae, s/p Closure of bilateral axillary and left breast wounds without periop or postop complications. s/p closure wound surgery yesterday. No significant overnight events. Objective Last 24 Hour Vital Signs Date Time Temp Pulse Resp B/P Pulse Ox O2 Delivery O2 Flow Rate FiO2 02/08/17 18:18 96.8 02/08/17 16:00 19 02/08/17 16:00 96.8 82 18 119/60 99 Room Air 02/08/17 12:00 22 02/08/17 12:00 98.2 78 17 121/60 98 Room Air 02/08/17 08:00 98.8 90 16 110/53 93 Room Air 02/08/17 08:00 19 02/08/17 04:00 97.4 73 18 120/64 97 Room Air 02/08/17 04:00 18 02/08/17 00:21 97.8 75 20 103/56 99 Room Air 02/08/17 00:00 18 02/07/17 20:00 99.3 88 19 98/58 99 Room Air 02/07/17 20:00 18 02/07/17 19:30 Room Air 21 02/07/17 19:30 98 Room Air 21 02/07/17 19:11 97.2 Intake and Output 02/07/17 02/08/17 19:00 07:00 Intake Total 1340 ml 1580 ml Output Total 1365 ml 1690 ml Balance -25 ml -110 ml Intake Oral 250 ml 480 ml IV Total 1050 ml 1100 ml Other 40 ml Output Urine Total 1250 ml 1600 ml Other 115 ml 90 ml # Voids 2 # Bowel Movements 1 Height (Feet): 5 Height (Inches): 5.00 Weight (Pounds): 190 Objective General: alert, cooperative, no distress, appears stated age Head: normocephalic, without obvious abnormality, atraumatic Eyes: conjunctivae/corneas clear. PERRL, EOM's intact Throat: lips, mucosa, and tongue normal. MMM Neck: supple, symmetrical, trachea midline, and no JVD Lungs: clear to auscultation bilaterally Heart: regular rate and rhythm, S1, S2 normal, no murmur, click, rub or gallop Abdomen: soft, non-tender, non-distended, bowel sounds normal; no masses or organomegaly Extremities: dressings c/d/i Pulses: 2+ and symmetric Skin: skin color, texture, turgor normal; no rashes or lesions Neurologic: grossly normal, no focal deficits GADIEL BLOCK Feb 08, 2017 18:27
[2017-02-08 20:16] VITALS: BP 104/53
[2017-02-09 00:33] VITALS: BP 122/71
[2017-02-09] MEDS: ceFAZolin sod 1 GM in D5W 55 ML IVPB SCH ×3 (03:01→17:24)
[2017-02-09 04:00] VITALS: BP 107/61
[2017-02-09] MEDS: PCA shift volume MISC SCH ×2 (07:11→19:35)
[2017-02-09 08:00] VITALS: BP 132/88
[2017-02-09] MEDS: Lactulose 20gm/30ml UDC ORAL SCH ×3 (09:00→17:50)
[2017-02-09] MEDS: Heparin 5000 units/ml inj SUBQ SCH ×2 (09:00→21:36)
[2017-02-09] MEDS: Docusate 100mg cap ORAL SCH ×2 (09:00→21:36)
[2017-02-09 09:23] LABS: BASOPHILS % (AUTO) 0.8 % (0.0-2.0); EOSINOPHILS % (AUTO) 2.4 % (0.0-3.0); LYMPHOCYTES % (AUTO) 20.9 % (20.0-45.0); MEAN CORPUSCULAR HEMOGLOBIN 28.6 PG (27.0-31.0); MEAN CORPUSCULAR HGB CONC 33.1 G/DL (32.0-36.0); MEAN CORPUSCULAR VOLUME 86 FL (80-99); MEAN PLATELET VOLUME 6.8 FL (6.5-10.1); MONOCYTES % (AUTO) 7.4 % (1.0-10.0); NEUTROPHILS % (AUTO) 68.6 % (45.0-75.0); PLATELET COUNT 254 K/UL (150-450); RED BLOOD COUNT 3.79 M/UL (4.20-5.40); RED CELL DISTRIBUTION WIDTH 13.6 % (11.6-14.8); WHITE BLOOD COUNT 7.9 K/UL (4.8-10.8)
[2017-02-09] MEDS: D5NS 1,000 ML IV SCH ×2 (09:51→17:29)
[2017-02-09] MEDS ORDERED: Dicyclomine 10mg Cap ORAL PRN ×2 (10:00→10:11)
[2017-02-09] MEDS ORDERED: Simethicone 80mg tab ORAL PRN (10:00)
[2017-02-09 12:00] VITALS: BP 133/73
--- NOTE | 2017-02-09 13:28 | General Progress Note ---
Progress Note Progress Note Pt seen and examined. POD# 3 from groin wound closures. Doing well and all incisions are CDI Continue pain meds and can shower tomorrow. SADAF Gaspar MD Feb 09, 2017 13:28
--- NOTE | 2017-02-09 14:51 | General Progress Note ---
Assessment/Plan Problem List: (1) Abscess Assessment & Plan: s/p groin wound closure POD#3 s/p debridement of bilateral axillae s/p Closure of bilateral axillary and left breast wounds f/u blood cx Cont IV abx Pain control Supp care ICD Codes: L02.91 - Cutaneous abscess, unspecified SNOMED: 040567821 Subjective Date patient seen: Feb 09, 2017 Time patient seen: 14:50 ROS Limited/Unobtainable: No Allergies: Coded Allergies: No Known Allergies (Unverified , 01/26/17) Subjective s/p debridement of bilateral axillae, s/p Closure of bilateral axillary and left breast wounds without periop or postop complications. s/p closure wound surgery. No significant overnight events. Objective Last 24 Hour Vital Signs Date Time Temp Pulse Resp B/P Pulse Ox O2 Delivery O2 Flow Rate FiO2 02/09/17 12:00 19 02/09/17 12:00 97.5 71 20 133/73 98 Room Air 02/09/17 08:00 17 02/09/17 08:00 98.5 61 20 132/88 98 Room Air 02/09/17 04:00 16 02/09/17 04:00 98.1 75 19 107/61 99 Room Air 02/09/17 00:33 98.4 82 19 122/71 98 Room Air 02/09/17 00:00 16 02/08/17 20:16 99.1 86 18 104/53 100 Room Air 02/08/17 20:00 16 02/08/17 18:18 96.8 02/08/17 16:00 19 02/08/17 16:00 96.8 82 18 119/60 99 Room Air Intake and Output 02/08/17 02/09/17 19:00 07:00 Intake Total 1950 ml 100 ml Output Total 591 ml 60 ml Balance 1359 ml 40 ml Intake Oral 950 ml IV Total 1000 ml 100 ml Output Urine Total 520 ml Emesis 1 ml Drainage Total 70 ml 60 ml # Voids 3 Laboratory Tests 02/09/17 08:50: White Blood Count 7.9, Red Blood Count 3.79L, Hemoglobin 10.8L, Hematocrit 32.8L , Mean Corpuscular Volume 86, Mean Corpuscular Hemoglobin 28.6, Mean Corpuscular Hemoglobin Concent 33.1, Red Cell Distribution Width 13.6, Platelet Count 254, Mean Platelet Volume 6.8, Neutrophils (%) (Auto) 68.6, Lymphocytes (% ) (Auto) 20.9, Monocytes (%) (Auto) 7.4, Eosinophils (%) (Auto) 2.4, Basophils ( %) (Auto) 0.8 Height (Feet): 5 Height (Inches): 5.00 Weight (Pounds): 190 Objective General: alert, cooperative, no distress, appears stated age Head: normocephalic, without obvious abnormality, atraumatic Eyes: conjunctivae/corneas clear. PERRL, EOM's intact Throat: lips, mucosa, and tongue normal. MMM Neck: supple, symmetrical, trachea midline, and no JVD Lungs: clear to auscultation bilaterally Heart: regular rate and rhythm, S1, S2 normal, no murmur, click, rub or gallop Abdomen: soft, non-tender, non-distended, bowel sounds normal; no masses or organomegaly Extremities: dressings c/d/i Pulses: 2+ and symmetric Skin: skin color, texture, turgor normal; no rashes or lesions Neurologic: grossly normal, no focal deficits GAIDEL BLOCK Feb 09, 2017 14:51
[2017-02-09] MEDS ORDERED: D5NS 1000ml IV ONE (15:29)
[2017-02-09] MEDS ORDERED: Tubing IV Secondary IV ONE (15:29)
[2017-02-09 16:00] VITALS: BP 121/73
[2017-02-09] MEDS: PCA HYDROmorphone 1mg/ml 30 ML IV PRN (17:36)
[2017-02-09 20:00] VITALS: BP 134/46
[2017-02-10] VITALS: BP 151/73
[2017-02-10] MEDS: ceFAZolin sod 1 GM in D5W 55 ML IVPB SCH ×2 (02:04→09:32)
[2017-02-10 04:00] VITALS: BP 134/66
[2017-02-10] MEDS: D5NS 1,000 ML IV SCH (05:38)
[2017-02-10] MEDS: PCA shift volume MISC SCH (07:00)
[2017-02-10] MEDS: Lactulose 20gm/30ml UDC ORAL SCH ×3 (09:00→17:53)
[2017-02-10] MEDS: Docusate 100mg cap ORAL SCH ×2 (09:32→20:30)
[2017-02-10] MEDS: Heparin 5000 units/ml inj SUBQ SCH ×2 (09:34→20:30)
[2017-02-10] MEDS ORDERED: D5NS 1000ml IV ONE (10:33)
[2017-02-10 12:00] VITALS: BP 101/70
[2017-02-10 16:00] VITALS: BP 129/70
--- NOTE | 2017-02-10 16:17 | General Progress Note ---
Assessment/Plan Problem List: (1) Abscess Assessment & Plan: s/p groin wound closure POD#4 s/p debridement of bilateral axillae s/p Closure of bilateral axillary and left breast wounds f/u blood cx Cont IV abx Pain control Supp care ICD Codes: L02.91 - Cutaneous abscess, unspecified SNOMED: [id number] Subjective Date patient seen: Feb 10, 2017 Time patient seen: 16:17 ROS Limited/Unobtainable: No Allergies: Coded Allergies: No Known Allergies (Unverified , 01/26/17) Subjective s/p debridement of bilateral axillae, s/p Closure of bilateral axillary and left breast wounds without periop or postop complications. s/p closure wound surgery. No significant overnight events. Objective Last 24 Hour Vital Signs Date Time Temp Pulse Resp B/P Pulse Ox O2 Delivery O2 Flow Rate FiO2 02/10/17 12:00 98.4 88 20 101/70 99 Room Air 02/10/17 08:00 18 02/10/17 04:00 98.2 65 20 134/66 98 Room Air 02/10/17 04:00 16 02/10/17 00:00 98.1 78 20 151/73 96 Room Air 02/10/17 00:00 16 02/09/17 20:00 16 02/09/17 20:00 99.0 76 18 134/46 100 Room Air 02/09/17 18:06 98.2 Intake and Output 02/09/17 02/10/17 19:00 07:00 Intake Total 980 ml Output Total 40 ml 30 ml Balance 940 ml -30 ml Intake Oral 180 ml IV Total 800 ml Drainage Total 40 ml 30 ml # Voids 5 Height (Feet): 5 Height (Inches): 5.00 Weight (Pounds): 190 Objective General: alert, cooperative, no distress, appears stated age Head: normocephalic, without obvious abnormality, atraumatic Eyes: conjunctivae/corneas clear. PERRL, EOM's intact Throat: lips, mucosa, and tongue normal. MMM Neck: supple, symmetrical, trachea midline, and no JVD Lungs: clear to auscultation bilaterally Heart: regular rate and rhythm, S1, S2 normal, no murmur, click, rub or gallop Abdomen: soft, non-tender, non-distended, bowel sounds normal; no masses or organomegaly Extremities: dressings c/d/i Pulses: 2+ and symmetric Skin: skin color, texture, turgor normal; no rashes or lesions Neurologic: grossly normal, no focal deficits GADIEL BLOCK Feb 10, 2017 16:17
[2017-02-10] MEDS: Cephalexin 500mg cap ORAL SCH (17:53)
[2017-02-10 20:03] VITALS: BP 115/57
[2017-02-10] MEDS: Norco 10mg/325mg tab ORAL PRN (23:04)
[2017-02-11 00:12] VITALS: BP 134/90
[2017-02-11 04:00] VITALS: BP 132/67
[2017-02-11 08:00] VITALS: BP 117/62
[2017-02-11] MEDS: Lactulose 20gm/30ml UDC ORAL SCH ×3 (09:00→17:57)
[2017-02-11] MEDS: Docusate 100mg cap ORAL SCH ×2 (09:16→20:25)
[2017-02-11] MEDS: Cephalexin 500mg cap ORAL SCH ×3 (09:16→17:57)
[2017-02-11] MEDS: Heparin 5000 units/ml inj SUBQ SCH ×2 (09:18→20:28)
[2017-02-11] MEDS: Norco 10mg/325mg tab ORAL PRN ×3 (10:52→22:33)
[2017-02-11 12:00] VITALS: BP 124/44
--- NOTE | 2017-02-11 13:53 | General Progress Note ---
Assessment/Plan Problem List: (1) Abscess Assessment & Plan: s/p groin wound closure POD#5 s/p debridement of bilateral axillae s/p Closure of bilateral axillary and left breast wounds f/u blood cx Cont IV abx Pain control Supp care ICD Codes: L02.91 - Cutaneous abscess, unspecified SNOMED: [id number] Subjective Date patient seen: Feb 11, 2017 Time patient seen: 13:53 ROS Limited/Unobtainable: No Allergies: Coded Allergies: No Known Allergies (Unverified , 01/26/17) Subjective s/p debridement of bilateral axillae, s/p Closure of bilateral axillary and left breast wounds without periop or postop complications. s/p closure wound surgery. No significant overnight events. Objective Last 24 Hour Vital Signs Date Time Temp Pulse Resp B/P Pulse Ox O2 Delivery O2 Flow Rate FiO2 02/11/17 12:10 98.1 02/11/17 12:00 98.4 61 20 124/44 100 Room Air 02/11/17 08:00 98.1 75 20 117/62 99 Room Air 02/11/17 04:00 98.9 61 20 132/67 97 Room Air 02/11/17 00:12 99.1 71 19 134/90 100 Room Air 02/10/17 20:03 99.9 80 18 115/57 98 Room Air 02/10/17 16:00 98.0 81 18 129/70 98 Room Air Intake and Output 02/10/17 02/11/17 19:00 07:00 Intake Total 420 ml 480 ml Balance 420 ml 480 ml Intake Oral 420 ml 480 ml # Voids 4 2 Height (Feet): 5 Height (Inches): 5.00 Weight (Pounds): 190 Objective General: alert, cooperative, no distress, appears stated age Head: normocephalic, without obvious abnormality, atraumatic Eyes: conjunctivae/corneas clear. PERRL, EOM's intact Throat: lips, mucosa, and tongue normal. MMM Neck: supple, symmetrical, trachea midline, and no JVD Lungs: clear to auscultation bilaterally Heart: regular rate and rhythm, S1, S2 normal, no murmur, click, rub or gallop Abdomen: soft, non-tender, non-distended, bowel sounds normal; no masses or organomegaly Extremities: dressings c/d/i Pulses: 2+ and symmetric Skin: skin color, texture, turgor normal; no rashes or lesions Neurologic: grossly normal, no focal deficits GADIEL BLOCK Feb 11, 2017 13:53
[2017-02-11 16:00] VITALS: BP 129/72
[2017-02-11 20:00] VITALS: BP 115/59
[2017-02-12 04:00] VITALS: BP 113/61
[2017-02-12] MEDS: Lactulose 20gm/30ml UDC ORAL SCH ×2 (09:00→12:30)
[2017-02-12] MEDS: Heparin 5000 units/ml inj SUBQ SCH (09:00)
[2017-02-12 10:36] VITALS: BP 118/50
[2017-02-12] MEDS: Norco 10mg/325mg tab ORAL PRN (11:07)
[2017-02-12] MEDS: Cephalexin 500mg cap ORAL SCH ×2 (11:07→13:24)
[2017-02-12] MEDS: Docusate 100mg cap ORAL SCH (11:07)
--- NOTE | 2017-02-12 11:54 | Discharge Summary ---
Discharge Summary Hospital Course Date of Admission Jan 26, 2017 at 13:55 Date of Discharge Feb 12, 2017 Admitting Diagnosis groin and axillary abscesses Reason for Hospitalization: as above HPI Mayra Burrell is a 26 year old female who was admitted on Jan 26, 2017 at 13: 55 for Hidradenitis Consultations Surgery Procedures See operative reports Hospital Course 26 y/o AA female with hx of hidradenitis, presents with axillary and groin abscesses, admitted for IV abx, seen by Surgery, and decision was made to take to OR for operative debridement of infected tissue. No periop or postop complications. Once her wounds were stable and pain was controlled with PO meds , she was dced home and will f/u with her surgeon in 1-2 weeks as outpt Discharge Condition Upon Discharge: stable Discharge Disposition Patient was discharged to Home (01) Discharge Diagnoses: (1) Abscess GADIEL BLOCK Feb 12, 2017 11:54
[2017-02-12 12:00] VITALS: BP 126/78
[2017-02-12] MEDS ORDERED: DOXYCYCLINE MO100 MG ORAL (13:16)
[2017-02-12] MEDS ORDERED: NORCO 10-325 T1 EACH ORAL (13:16)
== END 2017-02-12 13:57 | disposition home or self-care (01) | DRG 574 ==
LOC: EDBEDREQ 12:37 → EMR 12:37 → 3E 13:55 → EDBEDREQ 17:09
PROC: 2W14X6Z Compression of Chest Wall using Pressure Dressing (ICD-10-PCS; principal; 2017-01-27 07:00)
PROC: 0H85XZZ Division of Chest Skin, External Approach (ICD-10-PCS; principal; 2017-01-27 07:00)
PROC: 0HBU0ZZ Excision of Left Breast, Open Approach (ICD-10-PCS; principal; 2017-01-27 07:00)
PROC: 0JB60ZZ Excision of Chest Subcutaneous Tissue and Fascia, Open Approach (ICD-10-PCS; principal; 2017-01-27 07:00)
PROC: 0JBF0ZZ Excision of Left Upper Arm Subcutaneous Tissue and Fascia, Open Approach (ICD-10-PCS; principal; 2017-01-27 07:00)
PROC: 0JBD0ZZ Excision of Right Upper Arm Subcutaneous Tissue and Fascia, Open Approach (ICD-10-PCS; principal; 2017-01-27 07:00)
PROC: 0JX60ZC Transfer Chest Subcutaneous Tissue and Fascia with Skin, Subcutaneous Tissue and Fascia, Open Approach (ICD-10-PCS; 2017-01-30)
PROC: 0JXF0ZC Transfer Left Upper Arm Subcutaneous Tissue and Fascia with Skin, Subcutaneous Tissue and Fascia, Open Approach (ICD-10-PCS; 2017-01-30)
PROC: 0JD60ZZ Extraction of Chest Subcutaneous Tissue and Fascia, Open Approach (ICD-10-PCS; 2017-01-30)
PROC: 0JXD0ZC Transfer Right Upper Arm Subcutaneous Tissue and Fascia with Skin, Subcutaneous Tissue and Fascia, Open Approach (ICD-10-PCS; 2017-01-30)
PROC: 0JDD0ZZ Extraction of Right Upper Arm Subcutaneous Tissue and Fascia, Open Approach (ICD-10-PCS; 2017-01-30)
PROC: 2W19X6Z Compression of Left Upper Extremity using Pressure Dressing (ICD-10-PCS; 2017-01-30)
PROC: 2W1AX6Z Compression of Right Upper Arm using Pressure Dressing (ICD-10-PCS; 2017-01-30)
PROC: 0JDF0ZZ Extraction of Left Upper Arm Subcutaneous Tissue and Fascia, Open Approach (ICD-10-PCS; 2017-01-30)
PROC: 0JBL0ZZ Excision of Right Upper Leg Subcutaneous Tissue and Fascia, Open Approach (ICD-10-PCS; 2017-02-02)
PROC: 0JDM0ZZ Extraction of Left Upper Leg Subcutaneous Tissue and Fascia, Open Approach (ICD-10-PCS; 2017-02-02)
PROC: 0JBM0ZZ Excision of Left Upper Leg Subcutaneous Tissue and Fascia, Open Approach (ICD-10-PCS; 2017-02-02)
PROC: 0J8M0ZZ Division of Left Upper Leg Subcutaneous Tissue and Fascia, Open Approach (ICD-10-PCS; 2017-02-02)
PROC: 0J8L0ZZ Division of Right Upper Leg Subcutaneous Tissue and Fascia, Open Approach (ICD-10-PCS; 2017-02-02)
PROC: 0JDL0ZZ Extraction of Right Upper Leg Subcutaneous Tissue and Fascia, Open Approach (ICD-10-PCS; 2017-02-02)
PROC: 0JDM0ZZ Extraction of Left Upper Leg Subcutaneous Tissue and Fascia, Open Approach (ICD-10-PCS; 2017-02-06)
PROC: 0JXL0ZC Transfer Right Upper Leg Subcutaneous Tissue and Fascia with Skin, Subcutaneous Tissue and Fascia, Open Approach (ICD-10-PCS; 2017-02-06)
PROC: 0JDL0ZZ Extraction of Right Upper Leg Subcutaneous Tissue and Fascia, Open Approach (ICD-10-PCS; 2017-02-06)
PROC: 0JXM0ZC Transfer Left Upper Leg Subcutaneous Tissue and Fascia with Skin, Subcutaneous Tissue and Fascia, Open Approach (ICD-10-PCS; 2017-02-06)
DX: L02.214 Cutaneous abscess of groin (principal); L02.412 Cutaneous abscess of left axilla; L02.411 Cutaneous abscess of right axilla; L73.2 Hidradenitis suppurativa; N61.1 Abscess of the breast and nipple
CPT/HCPCS: 36415; 71010; 80048; 80053; 81003; 81025; 85025; 85610; 85730; 86850; 86900; 86901; 87040; 93005; 94003; 94150; 94760; C9399; J2180; J2250; J2405; J2710; J2765; J8499

== ENCOUNTER 2017-02-17 00:24 | Inpatient (IN) | payer OTHER ==
[2017-02-17] VITALS (17 sets, daily range): BP systolic 111–156; BP diastolic 54–98
[~2017-02-17] VITALS: Ht 170.2 cm; Wt 82.6 kg
[~2017-02-17 00:24] MED LIST: DOXYCYCLINE MO100 MG ORAL; NKM; NORCO 10-325 T1 EACH ORAL
[2017-02-17] MEDS ORDERED: HYDROmorphone 1mg/ml Carpuject IVP ONE (01:00)
[2017-02-17] MEDS ORDERED: Vancomycin 1.5gm/D5W 250ml 325 ML IVPB ONE (01:00)
[2017-02-17] MEDS ORDERED: Piperacillin/Tazobactam 3.375 GM in NS 110 ML IVPB ONE (01:00)
--- NOTE | 2017-02-17 01:00 | Emergency Room Report ---
History of Present Illness General Chief Complaint: Wound Recheck/Suture Removal Source: Patient Present Illness HPI Is a 26-year-old female who was here earlier this month and had hidradenitis and groin abscess. She require surgical debridement. She was in the hospital for week and was discharged. She presents with chief complaint of drainage and pain. Pain is 10 out of 10. She was admitted to a hospital just outside of [place] 2 days ago. She signed out AGAINST MEDICAL ADVICE and came here. She is to be admitted. She had fever and chills. She had IV antibiotics outside hospital. Patient denies any other complaint. Worse with movement. Allergies: Coded Allergies: No Known Allergies (Unverified , 01/26/17) Patient History Past Medical History: see triage record, old chart reviewed Past Surgical History: other Pertinent Family History: none Social History: Denies: smoking Last Menstrual Period: last week Now: No Immunizations: other Reviewed Nursing Documentation: PMH: Agreed, PSxH: Agreed Nursing Documentation-PMH Hx Asthma: Yes Hx Cancer: No Hx Gastrointestinal Problems: No Hx Neurological Problems: No Review of Systems Eye: Denies: blurred vision, eye pain ENT: Denies: ear pain, nose congestion, throat swelling Respiratory: Denies: cough, shortness of breath Cardiovascular: Denies: chest pain, palpitations Gastrointestinal: Denies: abdominal pain, diarrhea, nausea, vomiting Musculoskeletal: Denies: back pain, joint pain Skin: Denies: rash Neurological: Denies: headache, numbness Endocrine: Denies: increased thirst, increased urine Hematologic/Lymphatic: Denies: easy bruising All Other Systems: negative except mentioned in HPI Physical Exam Vital Signs Date Time Temp Pulse Resp B/P Pulse Ox O2 Delivery O2 Flow Rate FiO2 02/17/17 00:32 97.9 98 16 104/63 98 Room Air vitals normal Sp02 EP Interpretation: reviewed, normal General Appearance: well appearing, alert, mild distress - From pain Head: normocephalic, atraumatic Eyes: bilateral eye EOMI, bilateral eye PERRL ENT: hearing grossly normal, normal pharynx Neck: full range of motion, supple, no meningismus Respiratory: chest non-tender, lungs clear, normal breath sounds Cardiovascular #1: regular rate, rhythm, no murmur Gastrointestinal: normal bowel sounds, non tender, no mass, no organomegaly, no bruit, non-distended Genitourinary: other - Groin: She has thiago over bilateral inguinal area and suprapubic area. She has a tender indurated area to the right inner thigh. There is drainage to the bilateral groin. Musculoskeletal: back normal, other - Bilateral axilla with thiago. There is moderate amount of purulent drainage from the left axilla. Minimal drainage from the right. Psychiatric: mood/affect normal Skin: warm/dry Medical Decision Making Diagnostic Impression: Primary Impression: Abscess Additional Impressions: Hidradenitis suppurativa of left axilla Hidradenitis suppurativa of right axilla Anemia Qualified Codes: D64.9 - Anemia, unspecified ER Course Patient with hidradenitis of both axilla and groin. Most likely MRSA or polymicrobial. I initially ordered Zosyn and vancomycin but after discussing case with Dr. Lucia, will switch to Invanz. Patient be admitted for IV antibiotics and surgical debridement. Her surgeon called ahead of time. Laboratory Tests Test 02/17/17 01:25 White Blood Count 6.5 K/UL (4.8-10.8) Red Blood Count 3.87 M/UL (4.20-5.40) L Hemoglobin 10.6 G/DL (12.0-16.0) L Hematocrit 33.1 % (37.0-47.0) L Mean Corpuscular Volume 85 FL (80-99) Mean Corpuscular Hemoglobin 27.3 PG (27.0-31.0) Mean Corpuscular Hemoglobin Concent 32.0 G/DL (32.0-36.0) Red Cell Distribution Width 13.9 % (11.6-14.8) Platelet Count 337 K/UL (150-450) Mean Platelet Volume 6.5 FL (6.5-10.1) Neutrophils (%) (Auto) 57.3 % (45.0-75.0) Lymphocytes (%) (Auto) 30.5 % (20.0-45.0) Monocytes (%) (Auto) 8.9 % (1.0-10.0) Eosinophils (%) (Auto) 2.2 % (0.0-3.0) Basophils (%) (Auto) 1.1 % (0.0-2.0) Prothrombin Time 11.0 SEC (9.30-11.50) Prothromb Time International Ratio 1.1 (0.9-1.1) Activated Partial Thromboplast Time 29 SEC (23-33) Sodium Level 139 mEQ/L (135-145) Potassium Level 3.4 mEQ/L (3.4-4.9) Chloride Level 97 mEQ/L (98-107) L Carbon Dioxide Level 25 mEQ/L (20-30) Anion Gap 17 (5-15) H Blood Urea Nitrogen 8 mg/dL (7-23) Creatinine 0.6 mg/dL (0.5-0.9) Estimat Glomerular Filtration Rate > 60 mL/min (>60) Glucose Level 102 mg/dL (74-106) Lactic Acid Level 1.10 mmol/L (0.66-2.22) Calcium Level 9.5 mg/dL (8.6-10.2) Lab Results Impression labs unremarkable Rhythm Strip Diag. Results Rhythm Strip Time: 02:30 EP Interpretation: yes Rate: 66 Rhythm: NSR Last Vital Signs Date Time Temp Pulse Resp B/P Pulse Ox O2 Delivery O2 Flow Rate FiO2 02/17/17 00:32 97.9 98 16 104/63 98 Room Air Status: improved Disposition: ADMITTED INPATIENT Condition: Serious Referrals: NOT CHOSEN ASMITA/,REFERRING (PCP) ATA SAENZ M.D. Feb 17, 2017 00:59
[2017-02-17] MEDS ORDERED: Ertapenem 1 GM in NS 55 ML IV ONE (01:15)
[2017-02-17] MEDS ORDERED: Ertapenem (INVanz) Inj ONE (01:28)
[2017-02-17 01:40] LABS: BASOPHILS % (AUTO) 1.1 % (0.0-2.0); EOSINOPHILS % (AUTO) 2.2 % (0.0-3.0); LYMPHOCYTES % (AUTO) 30.5 % (20.0-45.0); MEAN CORPUSCULAR HEMOGLOBIN 27.3 PG (27.0-31.0); MEAN CORPUSCULAR VOLUME 85 FL (80-99); MEAN PLATELET VOLUME 6.5 FL (6.5-10.1); MONOCYTES % (AUTO) 8.9 % (1.0-10.0); NEUTROPHILS % (AUTO) 57.3 % (45.0-75.0); PLATELET COUNT 337 K/UL (150-450); RED BLOOD COUNT 3.87 M/UL (4.20-5.40); RED CELL DISTRIBUTION WIDTH 13.9 % (11.6-14.8); WHITE BLOOD COUNT 6.5 K/UL (4.8-10.8)
[2017-02-17 01:51] LABS: INR 1.1 (0.9-1.1)
[2017-02-17 02:11] LABS: ANION GAP 17 (5-15); CALCIUM 9.5 mg/dL (8.6-10.2); CARBON DIOXIDE 25 mEQ/L (20-30); CHLORIDE 97 mEQ/L (98-107); CREATININE 0.6 mg/dL (0.5-0.9); GLOMERULAR FILTRATION RATE > 60 mL/min (>60); HEMOLYSIS 2; POTASSIUM 3.4 mEQ/L (3.4-4.9); SODIUM 139 mEQ/L (135-145)
[2017-02-17] MEDS ORDERED: Morphine Sulfate 4mg/ml Inj IVP PRN (03:45)
[2017-02-17] MEDS ORDERED: Morphine Sulfate 2mg/ml Inj IVP PRN (04:45)
[2017-02-17] MEDS: Piperacillin/Tazobactam 3.375 GM in NS 110 ML IVPB SCH ×2 (06:00→14:24)
--- NOTE | 2017-02-17 08:37 | Pre-Procedure Note/Attestation ---
Pre-Procedure Note/Attestation Complete Prior to Procedure Planned Procedure: bilateral Procedure Narrative: Bilateral groin wound debridement and possible reclosure Attestation I attest that I discussed the nature of the procedure; its benefits; risks and complications; and alternatives (and the risks and benefits of such alternatives ), prior to the procedure, with the patient (or the patient's legal veterans service representative). I attest that, if there was a reasonable possibility of needing a blood transfusion, the patient (or the patient's legal veterans service representative) was given the [facility] standardized written summary, pursuant to the Geovanny [place] Blood Safety Act ([place] Health and Safety Code # 1645, as amended). I attest that I re-evaluated the patient just prior to the surgery and that there has been no change in the patient's H&P, except as documented below: SADAF HICKS Feb 17, 2017 08:37
[2017-02-17] MEDS ORDERED: Rate Change PCA 1 Each MISC PRN (08:45)
[2017-02-17] MEDS ORDERED: Zolpidem 5mg tab ORAL PRN (08:45)
[2017-02-17] MEDS ORDERED: Lidocaine 1% 10mg/ml/Epi 0.005mg/ml 30ml vial INJ ONE (08:51)
[2017-02-17] MEDS ORDERED: Bacitracin 50000 Units Vial ONE (08:51)
[2017-02-17] MEDS ORDERED: Propofol 10mg/ml 20ml IV ONE (09:00)
[2017-02-17] MEDS ORDERED: LR 1000ml ONE (09:00)
[2017-02-17] MEDS ORDERED: NS Irrig 1000ml ONE (09:00)
[2017-02-17] MEDS ORDERED: Glycopyrrolate 0.2mg/ml 1ml Vial ONE (09:00)
[2017-02-17] MEDS ORDERED: fentaNYL 100 mcg/2 mL IV ONE (09:00)
[2017-02-17] MEDS ORDERED: Lidocaine 1% MPF 10mg/ml 5ml ONE (09:00)
[2017-02-17] MEDS ORDERED: Neostigmine 1mg/ml 10ml Inj ONE (09:00)
[2017-02-17] MEDS ORDERED: Surgicel 4in x 8in TOPIC ONE (09:29)
--- NOTE | 2017-02-17 09:38 | Anethesia Preoperative Eval ---
Anesthesia Pre-op PMH/ROS General Date of Evaluation: Feb 17, 2017 Time of Evaluation: 09:01 Anesthesiologist: Suyapa ASA Score: ASA 3 Mallampati Score Class I : Soft palate, uvula, fauces, pillars visible Class II: Soft palate, uvula, fauces visible Class III: Soft palate, base of uvula visible Class IV: Only hard plate visible Mallampati Classification: Class II Surgeon: Pepe Diagnosis: Hidradenitis and Groin Abscess Surgical Procedure: I and D Groin Abscess Anesthesia History: none Family History: no anesthesia problems Allergies: Coded Allergies: No Known Allergies (Unverified , 01/26/17) Medications: see eMAR Past Medical History Pulmonary: Reports: asthma Hematology/Immune: Reports: anemia PSxH Narrative: Multiple procedures Anesthesia Pre-op Phys. Exam Physician Exam Last Vital Signs Date Time Temp Pulse Resp B/P Pulse Ox O2 Delivery O2 Flow Rate FiO2 02/17/17 04:00 97.7 57 18 135/54 99 Room Air Constitutional: NAD Neurologic: CN 2-12 intact Cardiovascular: RRR Respiratory: CTA Gastrointestinal: S/NT/ND Airway Exam Mallampati Score: Class II MO: full ROM: full Teeth: intact Anesthesia Pre-op A/P Labs Hematology Test 02/17/17 01:25 White Blood Count 6.5 K/UL (4.8-10.8) Red Blood Count 3.87 M/UL (4.20-5.40) L Hemoglobin 10.6 G/DL (12.0-16.0) L Hematocrit 33.1 % (37.0-47.0) L Mean Corpuscular Volume 85 FL (80-99) Mean Corpuscular Hemoglobin 27.3 PG (27.0-31.0) Mean Corpuscular Hemoglobin Concent 32.0 G/DL (32.0-36.0) Red Cell Distribution Width 13.9 % (11.6-14.8) Platelet Count 337 K/UL (150-450) Mean Platelet Volume 6.5 FL (6.5-10.1) Neutrophils (%) (Auto) 57.3 % (45.0-75.0) Lymphocytes (%) (Auto) 30.5 % (20.0-45.0) Monocytes (%) (Auto) 8.9 % (1.0-10.0) Eosinophils (%) (Auto) 2.2 % (0.0-3.0) Basophils (%) (Auto) 1.1 % (0.0-2.0) Coagulation Test 02/17/17 01:25 Prothrombin Time 11.0 SEC (9.30-11.50) Prothromb Time International Ratio 1.1 (0.9-1.1) Activated Partial Thromboplast Time 29 SEC (23-33) Chemistry Test 02/17/17 01:25 Sodium Level 139 mEQ/L (135-145) Potassium Level 3.4 mEQ/L (3.4-4.9) Chloride Level 97 mEQ/L (98-107) L Carbon Dioxide Level 25 mEQ/L (20-30) Anion Gap 17 (5-15) H Blood Urea Nitrogen 8 mg/dL (7-23) Creatinine 0.6 mg/dL (0.5-0.9) Estimat Glomerular Filtration Rate > 60 mL/min (>60) Glucose Level 102 mg/dL (74-106) Lactic Acid Level 1.10 mmol/L (0.66-2.22) Calcium Level 9.5 mg/dL (8.6-10.2) Risk Assessment & Plan Assessment: ASA 2 Plan: GA, BIS, Glidescope Status Change Before Surgery: No Pre-Antibiotics Dru Gram Ancef IV Given Within 1 Hr of Incision: Yes Time Given: 09:16 Rober Dale MD Feb 17, 2017 09:38
[2017-02-17] MEDS ORDERED: LR 1000ml 1,000 ML IVLG SCH (09:41)
[2017-02-17] MEDS ORDERED: fentaNYL 100 mcg/2 mL IV PRN (09:45)
[2017-02-17] MEDS ORDERED: Oxycodone/Acetaminophen 5-325 ORAL PRN (09:45)
[2017-02-17] MEDS ORDERED: Ketorolac 60mg Inj IV PRN (09:45)
[2017-02-17] MEDS ORDERED: Norco 7.5mg/325mg tab ORAL PRN (09:45)
[2017-02-17] MEDS ORDERED: DiphenhydrAMINE 50mg/ml Inj IVP PRN (09:45)
[2017-02-17] MEDS ORDERED: Norco 5mg/325mg tab ORAL PRN (09:45)
[2017-02-17] MEDS ORDERED: Meperidine 25mg/0.5ml Inj IV PRN (09:45)
[2017-02-17] MEDS ORDERED: LORazepam Inj 2mg/ml 1ml IV PRN (09:45)
[2017-02-17] MEDS ORDERED: Midazolam 2mg/2ml Inj IVP PRN (09:45)
[2017-02-17] MEDS ORDERED: Hydromorphone 0.5mg/0.5ml inj IVP PRN (09:45)
[2017-02-17] MEDS ORDERED: Atropine Inj 1mg/10ml Syr IV PRN (09:45)
[2017-02-17] MEDS ORDERED: Metoclopramide 10mg/2ml Inj IVP PRN (09:45)
[2017-02-17] MEDS ORDERED: Ketorolac 30mg Inj IV PRN (09:45)
[2017-02-17] MEDS ORDERED: Heparin 5000 units/ml inj SUBQ SCH (10:00)
[2017-02-17] MEDS ORDERED: Acetaminophen (Non formulary) 100 ML IV SCH (10:00)
--- NOTE | 2017-02-17 10:08 | Operative Note - PDOC ---
Operative Note Operative Note Pre-op Diagnosis: Bilateral groin wound infection Procedure: Bilateral groin wound exploration and debridement Post-op Diagnosis: same as pre-op Surgeon: Pepe Bottom Turning Lathe Turner: Tyrone Anesthesia: general Specimen: none Complications: none Condition: stable Estimated Blood Loss: minimal Drains: none Implant(s) used?: No SADAF HICKS Feb 17, 2017 10:08
--- NOTE | 2017-02-17 10:31 | Immediate Post-Op Evaluation ---
Immediate Post-Op Evalulation Immediate Post-Op Evalulation Procedure: I&D Bilateral Groin Abscess Date of Evaluation: Feb 17, 2017 Time of Evaluation: 10:39 IV Fluids: 600 LR Blood Products: 0 Estimated Blood Loss: 10 Urinary Output: 300 Blood Pressure Systolic: 141 Blood Pressure Diastolic: 59 Pulse Rate: 96 Respiratory Rate: 16 O2 Sat by Pulse Oximetry: 100 Temperature (Fahrenheit): 97.5 Pain Score (1-10): 2 Nausea: No Vomiting: No Complications 0 Patient Status: awake, reacts, patent, extubated, none Hydration Status: adequate Dru Gram Ancef IV Given Within 1 Hr of Incision: Yes Time Given: 09:16 Rober Dale MD Feb 17, 2017 10:31
--- NOTE | 2017-02-17 11:15 | Consultation ---
DATE OF CONSULTATION: 02/17/2017 HISTORY OF PRESENT ILLNESS: This is a 26-year-old female, was approximately two weeks, status post bilateral groin and bilateral axillary reconstruction, who presents to the emergency room with pain and drainage from her bilateral groin wounds. These groin wounds are reconstructed with flap advancements approximately 10 days ago. However, she sustained some opening to the areas with drainage and pain and as such, she presented to the emergency room for evaluation and treatment. PAST MEDICAL HISTORY: Significant for hidradenitis. PAST SURGICAL HISTORY: As above. ALLERGIES: None. MEDICATIONS: None. PHYSICAL EXAMINATION: GENERAL: The patient is alert and oriented. HEART: Regular rate and rhythm. ABDOMEN: Soft, nontender, and nondistended. EXTREMITIES: The axillary flaps are healing well. The groin wounds have areas of dehiscence in bilateral groins. On the left side, there is small area of dehiscence superiorly and also in the inferior aspect of the wound and also on the right side, similarly, there is superior and inferior dehiscence. ASSESSMENT AND PLAN: This is a 26-year-old female, who is status post bilateral groin reconstruction with wound dehiscence and infection. She will be taken to the operating room for initial debridement and washout of the wound with possible re-closure, but given the amount of drainage present, it is unlikely the wound will be re-closed at this time. We will bring the patient back in several days after the debridement to perform the definitively reclosure. Corry Cantu M.D. DR: WALDEMAR JOB#: [id number] CC:
[2017-02-17] MEDS: PCA HYDROmorphone 1mg/ml 30 ML IV PRN (11:45)
--- NOTE | 2017-02-17 12:01 | Operative Note - Dictated ---
DATE OF OPERATION: 02/17/2017 PREOPERATIVE DIAGNOSIS: Bilateral groin wound dehiscence. POSTOPERATIVE DIAGNOSIS: Bilateral groin wound dehiscence. PROCEDURE: 1. Exploration of bilateral groin wound. 2. Debridement of bilateral groin wound. SURGEON: Corry Cantu M.D. SANDER MACHINE: Cynthia Hansen M.D. ANESTHESIA: General. COMPLICATIONS: None. DRAINS: None. SPECIMENS: Included cultures taken from the wound. DISPOSITION: Stable to the recovery room. INDICATIONS FOR SURGERY: This is a 26-year-old female, who is now approximately 10 days postoperative from definitive flap closure of her groin wounds. She presented to the emergency room last night, however, with pain and tenderness associated with the wound infection and dehiscence of bilateral groin wounds. She was admitted and started on IV antibiotics and upon my examination, I felt that she was an appropriate candidate for exploration and debridement. DETAILS OF THE OPERATION: The patient brought to the operating room and laid in lithotomy position on the operating table. The bilateral groins were prepped and draped in a sterile and usual fashion. We first began by removing some of the loose sutures from both groin wounds and in so doing, we came across some turbid fluid, which was sent for culture. The wound was then further opened up by removing some of the old further deeper sutures and completely opening the wound to allow for any residual infection to be cleared and washed out. Once both wounds are completely open, we began by exploring the wound and we have noted there was a pocket of fluid below the medial thigh flap on the right side, which was evacuated and the fluid was sent for culture and once exploration was done on the right side, we explored the left groin wound as well. We did not come across of any pockets or any foreign bodies. Once the exploration was completed and the wound was copiously irrigated with pulse lavage, we then re-examined the wound and performed a debridement of the edges of the wound and some of the nonviable issue at the wound base and upon completion of this, it was felt that given the clinical scenario at this point that it would not be prudent to re-elevate the flaps. As such, the plan will be to allow the patient to undergo wet-to-dry dressings over the next three to four days with plan of having the patient on IV antibiotics, and will tailor the antibiotics based on the culture results and performing definitive flap readvancement after this period of time. The patient tolerated the procedure well. There were no complications. Corry Cantu M.D. DR: WALDEMAR JOB#: [id number] CC: SHYANN
[2017-02-17] MEDS ORDERED: Naloxone 0.4mg/ml Inj IV PRN (14:45)
--- NOTE | 2017-02-17 16:32 | History and Physical ---
History of Present Illness General Date patient seen: Feb 17, 2017 Time patient seen: 16:32 Reason for Hospitalization: wound dehiscence, abscess Present Illness HPI 26 y/o female with hx of axillary and groin abscess, s/p surgical debridement earlier this month, dced home last week. While at home she noted that her wounds were starting to open up, then developed fevers at home, went to a local ER, apparently had a CT scan there that showed groin abscesses, she then left that hospital and came to this ER since she had her previous surgery done at [place]. Started on IV abx, and went to OR this morning for exploration and debridement of the groin, no periop or postop complications. Currently on IV abx , pain is controlled, no chest pain or dyspnea. Allergies: Coded Allergies: No Known Allergies (Unverified , 01/26/17) Medication History Scheduled Doxycycline Monohydrate* (Doxycycline Monohydrate*), 100 MG ORAL TWICE A DAY, ( Reported) No Known Medications* (NKM - No Known Medications*), 0 ., (Reported) Scheduled PRN Hydrocodone Bit/Acetaminophen 10-325* ([place] 10-325*), 1 TAB ORAL Q6H PRN for For Pain, (Reported) Patient History Healthcare decision maker Resuscitation status Full Code Advanced Directive on File No Past Medical/Surgical History Past Medical/Surgical History: (1) Abscess Family History Family History: Patient reports no known family medical history. Social History Social History: (1) No significant social history Review of Systems ROS Narrative CONSTITUTIONAL: No weight loss, fever, chills, weakness or fatigue. HEENT: Eyes: No visual loss, blurred vision, double vision or yellow sclerae. Ears, Nose, Throat: No hearing loss, sneezing, congestion, runny nose or sore throat. SKIN: No rash or itching. CARDIOVASCULAR: No chest pain, chest pressure or chest discomfort. No palpitations or edema. RESPIRATORY: No shortness of breath, cough or sputum. GASTROINTESTINAL: No anorexia, nausea, vomiting or diarrhea. No abdominal pain or blood. NEUROLOGICAL: No headache, dizziness, syncope, paralysis, ataxia, numbness or tingling in the extremities. No change in bowel or bladder control. MUSCULOSKELETAL: +groin pain HEMATOLOGIC: No anemia, bleeding or bruising. LYMPHATICS: No enlarged nodes. No history of splenectomy. PSYCHIATRIC: No history of depression or anxiety. ENDOCRINOLOGIC: No reports of sweating, cold or heat intolerance. No polyuria or polydipsia. ALLERGIES: No history of asthma, hives, eczema or rhinitis. Physical Exam Physical Exam Narrative General: alert, cooperative, no distress, appears stated age Head: normocephalic, without obvious abnormality, atraumatic Eyes: conjunctivae/corneas clear. PERRL, EOM's intact Throat: lips, mucosa, and tongue normal. MMM Neck: supple, symmetrical, trachea midline, and no JVD Lungs: clear to auscultation bilaterally Heart: regular rate and rhythm, S1, S2 normal, no murmur, click, rub or gallop Abdomen: soft, non-tender, non-distended, bowel sounds normal; no masses or organomegaly Extremities: +groin dressings appear c/d/i Pulses: 2+ and symmetric Skin: skin color, texture, turgor normal; no rashes or lesions Neurologic: grossly normal, no focal deficits Last 24 Hour Vital Signs Date Time Temp Pulse Resp B/P Pulse Ox O2 Delivery O2 Flow Rate FiO2 02/17/17 13:33 17 02/17/17 13:03 17 02/17/17 13:00 97.2 72 18 141/85 99 Room Air 02/17/17 12:30 17 02/17/17 12:15 17 02/17/17 12:00 16 02/17/17 12:00 96.8 64 17 141/58 99 Nasal Cannula 3.0 02/17/17 11:50 98.0 59 16 155/62 100 Nasal Cannula 3.0 02/17/17 11:45 17 02/17/17 11:35 58 14 152/59 97 Nasal Cannula 3.0 02/17/17 11:20 60 11 156/60 97 Nasal Cannula 3.0 02/17/17 11:05 60 17 151/63 100 Nasal Cannula 3.0 02/17/17 10:50 61 13 153/64 100 Nasal Cannula 3.0 02/17/17 10:37 100 30 143/65 96 Nasal Cannula 3.0 02/17/17 10:32 85 21 145/63 100 Simple Mask 8.0 02/17/17 10:31 96 16 100 02/17/17 10:28 97.5 96 32 147/59 100 Simple Mask 8.0 02/17/17 09:00 97.7 66 20 127/58 99 Room Air 02/17/17 04:00 97.7 57 18 135/54 99 Room Air 02/17/17 03:55 97.7 93 14 117/65 98 Room Air 02/17/17 03:55 97.7 63 14 118/80 98 Room Air 02/17/17 03:04 97.7 93 14 117/65 98 Room Air 02/17/17 02:17 97.8 02/17/17 01:30 97.9 80 14 111/98 98 Room Air 02/17/17 00:32 97.9 98 16 104/63 98 Room Air Intake and Output 02/16/17 02/17/17 18:59 06:59 Intake Total 55 ml Output Total 0 ml Balance 55 ml Intake Oral 0 ml IV Total 55 ml Output Urine Total 0 ml Stool Total 0 ml # Bowel Movements 1 Laboratory Tests Test 02/17/17 01:25 White Blood Count 6.5 K/UL (4.8-10.8) Red Blood Count 3.87 M/UL (4.20-5.40) L Hemoglobin 10.6 G/DL (12.0-16.0) L Hematocrit 33.1 % (37.0-47.0) L Mean Corpuscular Volume 85 FL (80-99) Mean Corpuscular Hemoglobin 27.3 PG (27.0-31.0) Mean Corpuscular Hemoglobin Concent 32.0 G/DL (32.0-36.0) Red Cell Distribution Width 13.9 % (11.6-14.8) Platelet Count 337 K/UL (150-450) Mean Platelet Volume 6.5 FL (6.5-10.1) Neutrophils (%) (Auto) 57.3 % (45.0-75.0) Lymphocytes (%) (Auto) 30.5 % (20.0-45.0) Monocytes (%) (Auto) 8.9 % (1.0-10.0) Eosinophils (%) (Auto) 2.2 % (0.0-3.0) Basophils (%) (Auto) 1.1 % (0.0-2.0) Prothrombin Time 11.0 SEC (9.30-11.50) Prothromb Time International Ratio 1.1 (0.9-1.1) Activated Partial Thromboplast Time 29 SEC (23-33) Sodium Level 139 mEQ/L (135-145) Potassium Level 3.4 mEQ/L (3.4-4.9) Chloride Level 97 mEQ/L (98-107) L Carbon Dioxide Level 25 mEQ/L (20-30) Anion Gap 17 (5-15) H Blood Urea Nitrogen 8 mg/dL (7-23) Creatinine 0.6 mg/dL (0.5-0.9) Estimat Glomerular Filtration Rate > 60 mL/min (>60) Glucose Level 102 mg/dL (74-106) Lactic Acid Level 1.10 mmol/L (0.66-2.22) Calcium Level 9.5 mg/dL (8.6-10.2) Microbiology Date/Time Source Procedure Growth Status 02/17/17 00:50 Other Gram Stain - Final Resulted 02/17/17 00:50 Other Wound Culture Pending Resulted Height (Feet): 5 Height (Inches): 7.00 Weight (Pounds): 182 Medications Current Medications Medications (Trade) Dose Ordered Sig/Eduarda Route PRN Reason Start Time Stop Time Status Last Admin Dose Admin Acetaminophen (Tylenol) 650 mg Q6H PRN ORAL Mild Pain (Pain Scale 1-3) 02/17/17 08:45 03/19/17 08:44 Acetaminophen 650 mg 650 mg Q4H PRN ORAL FEVER 02/17/17 08:45 03/19/17 08:44 Heparin Sodium (Porcine) (Heparin 5000 units/ml) 5,000 units EVERY 12 HOURS SUBQ 02/17/17 10:00 03/19/17 09:59 Hydromorphone HCl (CHIEF SPECIALIST LEED Dilaudid) 30 ml @ 0 mls/hr Q24H PRN IV For Pain 02/17/17 08:45 02/19/17 08:44 02/17/17 11:45 Miscellaneous Medication (CHIEF SPECIALIST LEED Rate Change) 1 ea DAILY PRN MISC rate change 02/17/17 08:45 02/19/17 08:44 Miscellaneous Medication (CHIEF SPECIALIST LEED shift volume) 1 ea Q12HR@0700,1900 MISC 02/17/17 19:00 02/19/17 18:59 Morphine Sulfate (Morphine Sulfate) 2 mg Q6H PRN IVP Moderate Pain (Pain Scale 4-6) 02/17/17 04:45 02/24/17 04:44 Morphine Sulfate (Morphine Sulfate) 4 mg Q6H PRN IVP Severe Pain (Pain Scale 7-10) 02/17/17 03:45 02/24/17 03:44 Naloxone HCl (Narcan) 0.1 mg PRN IV Per rx protocol 02/17/17 14:45 02/19/17 14:44 Ondansetron HCl (Zofran) 4 mg Q6H PRN IVP Nausea & Vomiting 02/17/17 08:45 03/19/17 08:44 Piperacillin Sod/ Tazobactam Sod/ Sodium Chloride (Zosyn/Sodium Chloride) 110 ml @ 27.5 mls/hr Q8H IVPB 02/17/17 06:00 02/24/17 05:59 02/17/17 14:24 Zolpidem Tartrate (Ambien) 5 mg DAILYPRN PRN ORAL Insomnia 02/17/17 08:45 03/19/17 08:44 Assessment/Plan Problem List: (1) Abscess Assessment & Plan: s/p debridement and wound exploration, POD#0 Cont IV abx Supp care Pain control DVT ppx IV fluids Bowel regimen Wound care per surgery ICD Codes: L02.91 - Cutaneous abscess, unspecified SNOMED: 672382416 GADIEL BLOCK Feb 17, 2017 16:32
[2017-02-17 17:48] LABS: BASOPHILS % (AUTO) 0.3 % (0.0-2.0); EOSINOPHILS % (AUTO) 0.2 % (0.0-3.0); LYMPHOCYTES % (AUTO) 17.5 % (20.0-45.0); MEAN CORPUSCULAR HEMOGLOBIN 27.4 PG (27.0-31.0); MEAN CORPUSCULAR HGB CONC 32.4 G/DL (32.0-36.0); MEAN CORPUSCULAR VOLUME 85 FL (80-99); MEAN PLATELET VOLUME 6.4 FL (6.5-10.1); MONOCYTES % (AUTO) 1.1 % (1.0-10.0); NEUTROPHILS % (AUTO) 80.9 % (45.0-75.0); PLATELET COUNT 360 K/UL (150-450); RED BLOOD COUNT 3.93 M/UL (4.20-5.40); RED CELL DISTRIBUTION WIDTH 13.5 % (11.6-14.8)
[2017-02-17 18:02] LABS: ANION GAP 10 (5-15); CALCIUM 9.4 mg/dL (8.6-10.2); CARBON DIOXIDE 26 mEQ/L (20-30); CHLORIDE 103 mEQ/L (98-107); CREATININE 0.7 mg/dL (0.5-0.9); GLOMERULAR FILTRATION RATE > 60 mL/min (>60); HEMOLYSIS 1; POTASSIUM 4.7 mEQ/L (3.4-4.9); SODIUM 139 mEQ/L (135-145)
--- NOTE | 2017-02-17 18:16 | History and Physical ---
History of Present Illness General Date patient seen: Feb 17, 2017 Time patient seen: 18:16 Reason for Hospitalization: groin abscess Present Illness HPI 26 y/o female with pmh of hidradenitis suppurative c/b axillary and groin abscess, s/p surgical debridement earlier this month who presents with fevers/ chills and recurrent abscessed. Pt was discharged home last week. While at home she noted that her wounds were starting to open up, then developed fevers at home, went to a local ER, apparently had a CT scan there that showed groin abscesses, she then left that hospital and came to this ER since she had her previous surgery done at [facility]. Started on IV abx, and went to OR this morning for exploration and debridement of the groin, no periop or postop complications. Currently on IV abx, pain is controlled, no chest pain or dyspnea. Allergies: Coded Allergies: No Known Allergies (Unverified , 01/26/17) Medication History Scheduled Doxycycline Monohydrate* (Doxycycline Monohydrate*), 100 MG ORAL TWICE A DAY, ( Reported) No Known Medications* (NKM - No Known Medications*), 0 ., (Reported) Scheduled PRN Hydrocodone Bit/Acetaminophen 10-325* ([place] 10-325*), 1 TAB ORAL Q6H PRN for For Pain, (Reported) Patient History History Provided By: Patient, Medical Record, PMD Healthcare decision maker Mother Resuscitation status Full Code Advanced Directive on File No Past Medical/Surgical History Past Medical/Surgical History: (1) Hidradenitis suppurativa Family History Family History: Patient reports no known family medical history. Social History Social History: (1) No significant social history Review of Systems ROS Narrative CONSTITUTIONAL: No weight loss, +fevers/chills, weakness or fatigue. HEENT: Eyes: No visual loss, blurred vision, double vision or yellow sclerae. Ears, Nose, Throat: No hearing loss, sneezing, congestion, runny nose or sore throat. SKIN: No rash or itching. CARDIOVASCULAR: No chest pain, chest pressure or chest discomfort. No palpitations or edema. RESPIRATORY: No shortness of breath, cough or sputum. GASTROINTESTINAL: No anorexia, nausea, vomiting or diarrhea. No abdominal pain or blood. NEUROLOGICAL: No headache, dizziness, syncope, paralysis, ataxia, numbness or tingling in the extremities. No change in bowel or bladder control. MUSCULOSKELETAL: No muscle, back pain, joint pain or stiffness. HEMATOLOGIC: No anemia, bleeding or bruising. LYMPHATICS: No enlarged nodes. No history of splenectomy. PSYCHIATRIC: No history of depression or anxiety. ENDOCRINOLOGIC: No reports of sweating, cold or heat intolerance. No polyuria or polydipsia. ALLERGIES: No history of asthma, hives, eczema or rhinitis. +groin pain Physical Exam Physical Exam Narrative General: alert, cooperative, no distress, appears stated age Head: normocephalic, without obvious abnormality, atraumatic Eyes: conjunctivae/corneas clear. PERRL, EOM's intact Throat: lips, mucosa, and tongue normal. MMM Neck: supple, symmetrical, trachea midline, and no JVD Lungs: clear to auscultation bilaterally Heart: regular rate and rhythm, S1, S2 normal, no murmur, click, rub or gallop Abdomen: soft, non-tender, non-distended, bowel sounds normal; no masses or organomegaly Extremities: extremities normal, atraumatic, no cyanosis or edema Groin dressings c/d/i Pulses: 2+ and symmetric Skin: skin color, texture, turgor normal; no rashes or lesions Neurologic: grossly normal, no focal deficits Last 24 Hour Vital Signs Date Time Temp Pulse Resp B/P Pulse Ox O2 Delivery O2 Flow Rate FiO2 02/17/17 17:33 17 02/17/17 17:10 96.6 69 19 148/86 98 Room Air 69 02/17/17 13:33 17 02/17/17 13:03 17 02/17/17 13:00 97.2 72 18 141/85 99 Room Air 02/17/17 12:30 17 02/17/17 12:15 17 02/17/17 12:00 16 02/17/17 12:00 96.8 64 17 141/58 99 Nasal Cannula 3.0 02/17/17 11:50 98.0 59 16 155/62 100 Nasal Cannula 3.0 02/17/17 11:45 17 02/17/17 11:35 58 14 152/59 97 Nasal Cannula 3.0 02/17/17 11:20 60 11 156/60 97 Nasal Cannula 3.0 02/17/17 11:05 60 17 151/63 100 Nasal Cannula 3.0 02/17/17 10:50 61 13 153/64 100 Nasal Cannula 3.0 02/17/17 10:37 100 30 143/65 96 Nasal Cannula 3.0 02/17/17 10:32 85 21 145/63 100 Simple Mask 8.0 02/17/17 10:31 96 16 100 02/17/17 10:28 97.5 96 32 147/59 100 Simple Mask 8.0 02/17/17 09:00 97.7 66 20 127/58 99 Room Air 02/17/17 04:00 97.7 57 18 135/54 99 Room Air 02/17/17 03:55 97.7 93 14 117/65 98 Room Air 02/17/17 03:55 97.7 63 14 118/80 98 Room Air 02/17/17 03:04 97.7 93 14 117/65 98 Room Air 02/17/17 02:17 97.8 02/17/17 01:30 97.9 80 14 111/98 98 Room Air 02/17/17 00:32 97.9 98 16 104/63 98 Room Air Intake and Output 02/16/17 02/17/17 19:00 07:00 Intake Total 55 ml Output Total 0 ml Balance 55 ml Intake Oral 0 ml IV Total 55 ml Output Urine Total 0 ml Stool Total 0 ml # Bowel Movements 1 Laboratory Tests Test 02/17/17 01:25 02/17/17 17:20 White Blood Count 6.5 K/UL (4.8-10.8) 4.0 K/UL (4.8-10.8) L Red Blood Count 3.87 M/UL (4.20-5.40) L 3.93 M/UL (4.20-5.40) L Hemoglobin 10.6 G/DL (12.0-16.0) L 10.8 G/DL (12.0-16.0) L Hematocrit 33.1 % (37.0-47.0) L 33.3 % (37.0-47.0) L Mean Corpuscular Volume 85 FL (80-99) 85 FL (80-99) Mean Corpuscular Hemoglobin 27.3 PG (27.0-31.0) 27.4 PG (27.0-31.0) Mean Corpuscular Hemoglobin Concent 32.0 G/DL (32.0-36.0) 32.4 G/DL (32.0-36.0) Red Cell Distribution Width 13.9 % (11.6-14.8) 13.5 % (11.6-14.8) Platelet Count 337 K/UL (150-450) 360 K/UL (150-450) Mean Platelet Volume 6.5 FL (6.5-10.1) 6.4 FL (6.5-10.1) L Neutrophils (%) (Auto) 57.3 % (45.0-75.0) 80.9 % (45.0-75.0) H Lymphocytes (%) (Auto) 30.5 % (20.0-45.0) 17.5 % (20.0-45.0) L Monocytes (%) (Auto) 8.9 % (1.0-10.0) 1.1 % (1.0-10.0) Eosinophils (%) (Auto) 2.2 % (0.0-3.0) 0.2 % (0.0-3.0) Basophils (%) (Auto) 1.1 % (0.0-2.0) 0.3 % (0.0-2.0) Prothrombin Time 11.0 SEC (9.30-11.50) Prothromb Time International Ratio 1.1 (0.9-1.1) Activated Partial Thromboplast Time 29 SEC (23-33) Sodium Level 139 mEQ/L (135-145) 139 mEQ/L (135-145) Potassium Level 3.4 mEQ/L (3.4-4.9) 4.7 mEQ/L (3.4-4.9) Chloride Level 97 mEQ/L (98-107) L 103 mEQ/L (98-107) Carbon Dioxide Level 25 mEQ/L (20-30) 26 mEQ/L (20-30) Anion Gap 17 (5-15) H 10 (5-15) Blood Urea Nitrogen 8 mg/dL (7-23) 6 mg/dL (7-23) L Creatinine 0.6 mg/dL (0.5-0.9) 0.7 mg/dL (0.5-0.9) Estimat Glomerular Filtration Rate > 60 mL/min (>60) > 60 mL/min (>60) Glucose Level 102 mg/dL (74-106) 173 mg/dL (74-106) H Lactic Acid Level 1.10 mmol/L (0.66-2.22) Calcium Level 9.5 mg/dL (8.6-10.2) 9.4 mg/dL (8.6-10.2) Microbiology Date/Time Source Procedure Growth Status 02/17/17 00:50 Other Gram Stain - Final Resulted 02/17/17 00:50 Other Wound Culture Pending Resulted Height (Feet): 5 Height (Inches): 7.00 Weight (Pounds): 182 Medications Current Medications Medications (Trade) Dose Ordered Sig/Eduarda Route PRN Reason Start Time Stop Time Status Last Admin Dose Admin Acetaminophen (Tylenol) 650 mg Q6H PRN ORAL Mild Pain (Pain Scale 1-3) 02/17/17 08:45 03/19/17 08:44 Acetaminophen 650 mg 650 mg Q4H PRN ORAL FEVER 02/17/17 08:45 03/19/17 08:44 Heparin Sodium (Porcine) (Heparin 5000 units/ml) 5,000 units EVERY 12 HOURS SUBQ 02/17/17 10:00 03/19/17 09:59 Hydromorphone HCl (STEEL MANAGER Dilaudid) 30 ml @ 0 mls/hr Q24H PRN IV For Pain 02/17/17 08:45 02/19/17 08:44 02/17/17 11:45 Miscellaneous Medication (STEEL MANAGER Rate Change) 1 ea DAILY PRN MISC rate change 02/17/17 08:45 02/19/17 08:44 Miscellaneous Medication (STEEL MANAGER shift volume) 1 ea Q12HR@0700,1900 MISC 02/17/17 19:00 02/19/17 18:59 Morphine Sulfate (Morphine Sulfate) 2 mg Q6H PRN IVP Moderate Pain (Pain Scale 4-6) 02/17/17 04:45 02/24/17 04:44 Morphine Sulfate (Morphine Sulfate) 4 mg Q6H PRN IVP Severe Pain (Pain Scale 7-10) 02/17/17 03:45 02/24/17 03:44 Naloxone HCl (Narcan) 0.1 mg PRN IV Per rx protocol 02/17/17 14:45 02/19/17 14:44 Ondansetron HCl (Zofran) 4 mg Q6H PRN IVP Nausea & Vomiting 02/17/17 08:45 03/19/17 08:44 Zolpidem Tartrate (Ambien) 5 mg DAILYPRN PRN ORAL Insomnia 02/17/17 08:45 03/19/17 08:44 Assessment/Plan Problem List: (1) Abscess ICD Codes: L02.91 - Cutaneous abscess, unspecified SNOMED: 617192939 Status: stable Assessment/Plan - s/p Bilateral groin wound exploration and debridement on 02/17/17, POD#1 - [facility] plastic surgery rec's - cont IV zosyn (02/16-) - f/u culture from OR - encourage mobilization/ambulation - encourage incentive spirometry to optimize pulmonary hygiene - DVT/GI prophylaxis as appropriate - ctm CBC and hemodynamics - ctm electrolytes, adjust/replete prn - optimize nutrition - pain control, supportive care, bowel regimen A total of 32min of additional time was spent in addition to normal encounter time for care/coordination and counseling. D/w pt, surgery, RN regarding mgmt and disposition. Patsy Bajwa M.D. Feb 17, 2017 18:16
[2017-02-17] MEDS ORDERED: Miralax 17gm pkt ORAL PRN (19:15)
[2017-02-17] MEDS ORDERED: Milk of Magnesia 30ml Ud ORAL PRN (19:15)
[2017-02-17] MEDS: PCA shift volume MISC SCH (19:17)
[2017-02-17] MEDS: Docusate 100mg cap ORAL SCH (20:27)
[2017-02-17] MEDS: Piperacillin/Tazobactam 3.375 GM in D5W 110 ML IVPB SCH (22:24)
[2017-02-18] VITALS: BP 129/85
[2017-02-18 04:00] VITALS: BP 130/80
[2017-02-18] MEDS: Piperacillin/Tazobactam 3.375 GM in D5W 110 ML IVPB SCH ×3 (05:11→22:20)
[2017-02-18] MEDS: PCA shift volume MISC SCH ×2 (07:00→19:30)
[2017-02-18 08:00] VITALS: BP_SYST 106; BP_SYST 131; BP_DIAS 55; BP_DIAS 72
--- NOTE | 2017-02-18 09:34 | General Progress Note ---
Progress Note Progress Note Pt seen and examined. POD # 1 doing well and wounds are clean. Will continue wet to dry dressings and plan on groin wound closures in a few days. SADAF Gaspar Feb 18, 2017 09:34
[2017-02-18] MEDS: Docusate 100mg cap ORAL SCH ×2 (10:20→18:00)
[2017-02-18] MEDS: Heparin 5000 units/ml inj SUBQ SCH ×2 (10:21→22:19)
[2017-02-18 12:00] VITALS: BP 133/75
--- NOTE | 2017-02-18 13:28 | General Progress Note ---
Assessment/Plan Problem List: (1) Abscess ICD Codes: L02.91 - Cutaneous abscess, unspecified SNOMED: 174022081 Status: stable Assessment/Plan - s/p Bilateral groin wound exploration and debridement on 02/17/17, POD#1 - appreciate plastic surgery rec's - cont IV zosyn (02/16-) - f/u culture from OR - encourage mobilization/ambulation - encourage incentive spirometry to optimize pulmonary hygiene - DVT/GI prophylaxis as appropriate - ctm CBC and hemodynamics - ctm electrolytes, adjust/replete prn - optimize nutrition - pain control, supportive care, bowel regimen A total of 31min of additional time was spent in addition to normal encounter time for care/coordination and counseling. D/w pt, surgery, RN regarding mgmt and disposition. Subjective Date patient seen: Feb 18, 2017 Time patient seen: 13:27 ROS Limited/Unobtainable: No Constitutional: Reports: no symptoms HEENT: Reports: no symptoms Cardiovascular: Reports: no symptoms Respiratory: Reports: no symptoms Gastrointestinal/Abdominal: Reports: no symptoms Genitourinary: Reports: no symptoms Neurologic/Psychiatric: Reports: no symptoms Endocrine: Reports: no symptoms Hematologic/Lymphatic: Reports: no symptoms Allergies: Coded Allergies: No Known Allergies (Unverified , 01/26/17) Subjective POD#1 Doing well Pain controlled Tolerating diet No BM yet Objective Last 24 Hour Vital Signs Date Time Temp Pulse Resp B/P Pulse Ox O2 Delivery O2 Flow Rate FiO2 02/18/17 12:06 97.9 02/18/17 08:00 97.9 71 18 106/55 98 Room Air 02/18/17 05:33 17 02/18/17 04:00 98.2 78 19 130/80 97 Room Air 02/18/17 01:33 17 02/18/17 00:00 98.4 76 18 129/85 99 Room Air 02/17/17 21:33 17 02/17/17 21:31 98.4 68 19 115/63 100 Room Air 02/17/17 19:01 17 02/17/17 17:33 17 02/17/17 17:10 96.6 69 19 148/86 98 Room Air 69 02/17/17 13:33 17 Intake and Output 02/17/17 02/18/17 19:00 07:00 Intake Total 810.0 ml 240 ml Output Total 1210 ml 900 ml Balance -400.0 ml -660 ml Intake Oral 240 ml IV Total 810.0 ml Output Urine Total 1200 ml 900 ml Estimated Blood Loss 10 ml Laboratory Tests 02/17/17 17:20: White Blood Count 4.0L, Red Blood Count 3.93L, Hemoglobin 10.8L, Hematocrit 33.3L, Mean Corpuscular Volume 85, Mean Corpuscular Hemoglobin 27.4, Mean Corpuscular Hemoglobin Concent 32.4, Red Cell Distribution Width 13.5, Platelet Count 360, Mean Platelet Volume 6.4L, Neutrophils (%) (Auto) 80.9H, Lymphocytes (%) (Auto) 17.5L, Monocytes (%) (Auto) 1.1, Eosinophils (%) (Auto) 0.2, Basophils (%) (Auto) 0.3, Sodium Level 139, Potassium Level 4.7, Chloride Level 103, Carbon Dioxide Level 26, Anion Gap 10, Blood Urea Nitrogen 6L, Creatinine 0.7, Estimat Glomerular Filtration Rate > 60, Glucose Level 173H, Calcium Level 9.4 Height (Feet): 5 Height (Inches): 7.00 Weight (Pounds): 182 Objective General: alert, cooperative, no distress, appears stated age Head: normocephalic, without obvious abnormality, atraumatic Eyes: conjunctivae/corneas clear. PERRL, EOM's intact Throat: lips, mucosa, and tongue normal. MMM Neck: supple, symmetrical, trachea midline, and no JVD Lungs: clear to auscultation bilaterally Heart: regular rate and rhythm, S1, S2 normal, no murmur, click, rub or gallop Abdomen: soft, non-tender, non-distended, bowel sounds normal; no masses or organomegaly Dressings c/d/i Extremities: extremities normal, atraumatic, no cyanosis or edema Pulses: 2+ and symmetric Skin: skin color, texture, turgor normal; no rashes or lesions Neurologic: grossly normal, no focal deficits Patsy Bajwa M.D. Feb 18, 2017 13:28
--- NOTE | 2017-02-18 13:55 | 48 Hour Post Anesthesia Eval ---
Post Anesthesia Evaluation Procedure: I&D Bilateral Groin Abscess Date of Evaluation: Feb 18, 2017 Time of Evaluation: 13:54 Blood Pressure Systolic: 108 0: 65 Pulse Rate: 72 Respiratory Rate: 20 Temperature (Fahrenheit): 97.6 O2 Sat by Pulse Oximetry: 98 Airway: patent Nausea: No Vomiting: No Pain Intensity: 3 Hydration Status: adequate Cardiopulmonary Status: stable Mental Status/LOC: patient returned to baseline Follow-up Care/Observations: n/a Post-Anesthesia Complications: none Follow-up care needed: N/A SHANIA MATTA M.D. Feb 18, 2017 13:55
[2017-02-18 16:00] VITALS: BP 109/54
[2017-02-18] MEDS: Lactulose 20gm/30ml UDC ORAL PRN (16:04)
[2017-02-18] MEDS: PCA HYDROmorphone 1mg/ml 30 ML IV PRN (16:05)
[2017-02-18 20:00] VITALS: BP 138/73
[2017-02-19] MEDS: Piperacillin/Tazobactam 3.375 GM in D5W 110 ML IVPB SCH ×3 (05:30→21:18)
[2017-02-19] MEDS: PCA shift volume MISC SCH ×2 (07:05→19:21)
[2017-02-19] MEDS ORDERED: Rate Change PCA 1 Each MISC PRN (07:30)
[2017-02-19 09:00] VITALS: BP 140/52
[2017-02-19] MEDS: Docusate 100mg cap ORAL SCH ×2 (09:43→17:32)
[2017-02-19] MEDS: Heparin 5000 units/ml inj SUBQ SCH ×2 (09:48→21:20)
[2017-02-19 10:18] LABS: BASOPHILS % (AUTO) 0.9 % (0.0-2.0); EOSINOPHILS % (AUTO) 1.6 % (0.0-3.0); LYMPHOCYTES % (AUTO) 36.4 % (20.0-45.0); MEAN CORPUSCULAR HEMOGLOBIN 26.3 PG (27.0-31.0); MEAN CORPUSCULAR HGB CONC 30.6 G/DL (32.0-36.0); MEAN CORPUSCULAR VOLUME 86 FL (80-99); MEAN PLATELET VOLUME 6.2 FL (6.5-10.1); MONOCYTES % (AUTO) 6.7 % (1.0-10.0); NEUTROPHILS % (AUTO) 54.4 % (45.0-75.0); PLATELET COUNT 321 K/UL (150-450); RED CELL DISTRIBUTION WIDTH 13.7 % (11.6-14.8); WHITE BLOOD COUNT 6.3 K/UL (4.8-10.8)
[2017-02-19 10:38] LABS: ANION GAP 14 (5-15); CALCIUM 9.4 mg/dL (8.6-10.2); CARBON DIOXIDE 27 mEQ/L (20-30); CHLORIDE 101 mEQ/L (98-107); CREATININE 0.7 mg/dL (0.5-0.9); GLOMERULAR FILTRATION RATE > 60 mL/min (>60); HEMOLYSIS 0; POTASSIUM 3.8 mEQ/L (3.4-4.9); SODIUM 142 mEQ/L (135-145)
[2017-02-19 12:00] VITALS: BP 147/7
[2017-02-19] MEDS: PCA HYDROmorphone 1mg/ml 30 ML IV PRN (16:16)
[2017-02-19 16:30] VITALS: BP 134/74
[2017-02-19 20:00] VITALS: BP 99/55
[2017-02-20] VITALS: BP 140/72
[2017-02-20 04:00] VITALS: BP 138/57
[2017-02-20] MEDS: Piperacillin/Tazobactam 3.375 GM in D5W 110 ML IVPB SCH ×3 (05:38→21:57)
[2017-02-20] MEDS: PCA shift volume MISC SCH ×2 (07:10→19:28)
[2017-02-20 08:23] VITALS: BP 129/63
[2017-02-20] MEDS: Docusate 100mg cap ORAL SCH ×2 (09:42→18:29)
[2017-02-20] MEDS: Heparin 5000 units/ml inj SUBQ SCH ×2 (09:45→20:43)
[2017-02-20 11:55] VITALS: BP 120/59
--- NOTE | 2017-02-20 15:51 | General Progress Note ---
Assessment/Plan Problem List: (1) Abscess ICD Codes: L02.91 - Cutaneous abscess, unspecified SNOMED: 165395565 Status: stable Assessment/Plan - s/p Bilateral groin wound exploration and debridement on 02/17/17, POD#2 - appreciate plastic surgery rec's - cont IV zosyn (02/16-) - f/u culture from OR - encourage mobilization/ambulation - encourage incentive spirometry to optimize pulmonary hygiene - DVT/GI prophylaxis as appropriate - ctm CBC and hemodynamics - ctm electrolytes, adjust/replete prn - optimize nutrition - pain control, supportive care, bowel regimen A total of 31min of additional time was spent in addition to normal encounter time for care/coordination and counseling. D/w pt, surgery, RN regarding mgmt and disposition. Subjective Date patient seen: Feb 19, 2017 Time patient seen: 12:00 ROS Limited/Unobtainable: No Constitutional: Reports: no symptoms HEENT: Reports: no symptoms Cardiovascular: Reports: no symptoms Respiratory: Reports: no symptoms Gastrointestinal/Abdominal: Reports: constipated Genitourinary: Reports: no symptoms Neurologic/Psychiatric: Reports: no symptoms Endocrine: Reports: no symptoms Hematologic/Lymphatic: Reports: no symptoms Allergies: Coded Allergies: No Known Allergies (Unverified , 01/26/17) Subjective POD#2 Doing well Pain controlled Tolerating diet No BM yet Objective Last 24 Hour Vital Signs Date Time Temp Pulse Resp B/P Pulse Ox O2 Delivery O2 Flow Rate FiO2 02/20/17 11:55 97.7 80 20 120/59 100 Room Air 02/20/17 08:23 97.7 76 20 129/63 99 Room Air 02/20/17 04:00 18 02/20/17 04:00 98.5 52 18 138/57 100 Room Air 02/20/17 00:00 20 02/20/17 00:00 98.4 62 18 140/72 99 Room Air 02/19/17 20:00 20 02/19/17 20:00 97.7 63 18 99/55 99 Room Air 02/19/17 16:30 98.2 66 18 134/74 99 Room Air Intake and Output 02/19/17 02/20/17 19:00 07:00 Intake Total 200 ml 337.5 ml Output Total 800 ml 450 ml Balance -600 ml -112.5 ml Intake Oral 200 ml 200 ml IV Total 137.5 ml Output Urine Total 800 ml 450 ml Height (Feet): 5 Height (Inches): 7.00 Weight (Pounds): 182 Objective General: alert, cooperative, no distress, appears stated age Head: normocephalic, without obvious abnormality, atraumatic Eyes: conjunctivae/corneas clear. PERRL, EOM's intact Throat: lips, mucosa, and tongue normal. MMM Neck: supple, symmetrical, trachea midline, and no JVD Lungs: clear to auscultation bilaterally Heart: regular rate and rhythm, S1, S2 normal, no murmur, click, rub or gallop Abdomen: soft, non-tender, non-distended, bowel sounds normal; no masses or organomegaly Dressings c/d/i Extremities: extremities normal, atraumatic, no cyanosis or edema Pulses: 2+ and symmetric Skin: skin color, texture, turgor normal; no rashes or lesions Neurologic: grossly normal, no focal deficits Patsy Bajwa M.D. Feb 20, 2017 15:51
--- NOTE | 2017-02-20 15:52 | General Progress Note ---
Assessment/Plan Problem List: (1) Abscess ICD Codes: L02.91 - Cutaneous abscess, unspecified SNOMED: 488290670 Status: stable Assessment/Plan - s/p Bilateral groin wound exploration and debridement on 02/17/17, POD#3 - appreciate plastic surgery rec's - cont IV zosyn (02/16-) - f/u culture from OR-->GNR - encourage mobilization/ambulation - encourage incentive spirometry to optimize pulmonary hygiene - DVT/GI prophylaxis as appropriate - ctm CBC and hemodynamics - ctm electrolytes, adjust/replete prn - optimize nutrition - pain control, supportive care, bowel regimen A total of 31min of additional time was spent in addition to normal encounter time for care/coordination and counseling. D/w pt, surgery, RN regarding mgmt and disposition. Subjective Date patient seen: Feb 20, 2017 Time patient seen: 15:51 ROS Limited/Unobtainable: No Constitutional: Reports: no symptoms HEENT: Reports: no symptoms Cardiovascular: Reports: no symptoms Respiratory: Reports: no symptoms Gastrointestinal/Abdominal: Reports: no symptoms Genitourinary: Reports: no symptoms Neurologic/Psychiatric: Reports: no symptoms Endocrine: Reports: no symptoms Hematologic/Lymphatic: Reports: no symptoms Allergies: Coded Allergies: No Known Allergies (Unverified , 01/26/17) Subjective POD#3 Doing well Pain controlled Tolerating diet No BM yet Objective Last 24 Hour Vital Signs Date Time Temp Pulse Resp B/P Pulse Ox O2 Delivery O2 Flow Rate FiO2 02/20/17 11:55 97.7 80 20 120/59 100 Room Air 02/20/17 08:23 97.7 76 20 129/63 99 Room Air 02/20/17 04:00 18 02/20/17 04:00 98.5 52 18 138/57 100 Room Air 02/20/17 00:00 20 02/20/17 00:00 98.4 62 18 140/72 99 Room Air 02/19/17 20:00 20 02/19/17 20:00 97.7 63 18 99/55 99 Room Air 02/19/17 16:30 98.2 66 18 134/74 99 Room Air Intake and Output 02/19/17 02/20/17 19:00 07:00 Intake Total 200 ml 337.5 ml Output Total 800 ml 450 ml Balance -600 ml -112.5 ml Intake Oral 200 ml 200 ml IV Total 137.5 ml Output Urine Total 800 ml 450 ml Height (Feet): 5 Height (Inches): 7.00 Weight (Pounds): 182 Objective General: alert, cooperative, no distress, appears stated age Head: normocephalic, without obvious abnormality, atraumatic Eyes: conjunctivae/corneas clear. PERRL, EOM's intact Throat: lips, mucosa, and tongue normal. MMM Neck: supple, symmetrical, trachea midline, and no JVD Lungs: clear to auscultation bilaterally Heart: regular rate and rhythm, S1, S2 normal, no murmur, click, rub or gallop Abdomen: soft, non-tender, non-distended, bowel sounds normal; no masses or organomegaly Dressings c/d/i Extremities: extremities normal, atraumatic, no cyanosis or edema Pulses: 2+ and symmetric Skin: skin color, texture, turgor normal; no rashes or lesions Neurologic: grossly normal, no focal deficits Patsy Bajwa M.D. Feb 20, 2017 15:51
[2017-02-20 16:09] VITALS: BP_SYST 119; BP_SYST 123; BP_DIAS 61; BP_DIAS 76
[2017-02-20] MEDS: PCA HYDROmorphone 1mg/ml 30 ML IV PRN (16:13)
[2017-02-20 20:00] VITALS: BP 111/52
[2017-02-20] MEDS: Lactulose 20gm/30ml UDC ORAL PRN (20:40)
[2017-02-21] VITALS: BP 102/56
[2017-02-21 04:00] VITALS: BP 118/68
[2017-02-21] MEDS: Piperacillin/Tazobactam 3.375 GM in D5W 110 ML IVPB SCH ×2 (05:49→13:56)
[2017-02-21] MEDS: PCA shift volume MISC SCH ×2 (07:00→19:21)
[2017-02-21] MEDS: Docusate 100mg cap ORAL SCH ×2 (08:26→17:36)
[2017-02-21] MEDS: Heparin 5000 units/ml inj SUBQ SCH ×3 (08:28→22:44)
[2017-02-21 08:34] VITALS: BP 103/57
[2017-02-21 11:39] VITALS: BP 109/53
--- NOTE | 2017-02-21 12:50 | General Surgery Progress Note ---
General Surgery-Progress Note Subjective Chief Complaint: stable Symptoms: improved Objective Last 24 Hour Vital Signs Date Time Temp Pulse Resp B/P Pulse Ox O2 Delivery O2 Flow Rate FiO2 02/21/17 12:00 16 02/21/17 11:39 98.3 80 20 109/53 99 Room Air 02/21/17 08:34 97.3 75 20 103/57 97 Room Air 02/21/17 08:00 16 02/21/17 04:00 97.7 62 18 118/68 98 Room Air 02/21/17 04:00 16 02/21/17 00:00 16 02/21/17 00:00 98.1 72 18 102/56 98 Room Air 02/20/17 20:00 98.4 61 18 111/52 99 Room Air 02/20/17 20:00 16 02/20/17 16:09 98.3 86 20 123/61 100 Room Air I&O Intake and Output 02/20/17 02/21/17 19:00 07:00 Intake Total 540 ml 327.5 ml Output Total 1200 ml 1400 ml Balance -660 ml -1072.5 ml Intake Oral 540 ml 300 ml IV Total 27.5 ml Output Urine Total 1200 ml 1400 ml # Voids 1 1 Dressing: dry Wound: clean Drains: none Cardiovascular: RSR Abdomen: soft Extremities: no edema Assessment Post-op Diagnosis stable post op wounds open clean Plan Additional Comments anticipate continuing dressing changes and no more surgery wound care Cynthia Baker MD Feb 21, 2017 12:49
--- NOTE | 2017-02-21 13:45 | General Progress Note ---
Assessment/Plan Problem List: (1) Abscess ICD Codes: L02.91 - Cutaneous abscess, unspecified SNOMED: 331906717 Assessment/Plan - s/p Bilateral groin wound exploration and debridement on 02/17/17, POD#4 - appreciate plastic surgery rec's - Cefazolin (02/21-), s/p zosyn (02/16-02/21) - f/u culture from OR-->E. Coli - encourage mobilization/ambulation - encourage incentive spirometry to optimize pulmonary hygiene - DVT/GI prophylaxis as appropriate - ctm CBC and hemodynamics - ctm electrolytes, adjust/replete prn - optimize nutrition - pain control, supportive care, bowel regimen - wound care per surgery A total of 32min of additional time was spent in addition to normal encounter time for care/coordination and counseling. D/w pt, surgery, RN regarding mgmt and disposition. Subjective Date patient seen: Feb 21, 2017 Time patient seen: 13:44 ROS Limited/Unobtainable: No Constitutional: Reports: no symptoms HEENT: Reports: no symptoms Cardiovascular: Reports: no symptoms Respiratory: Reports: no symptoms Gastrointestinal/Abdominal: Reports: no symptoms Genitourinary: Reports: no symptoms Neurologic/Psychiatric: Reports: no symptoms Endocrine: Reports: no symptoms Hematologic/Lymphatic: Reports: no symptoms Allergies: Coded Allergies: No Known Allergies (Unverified , 01/26/17) Subjective POD#4 Doing well Pain controlled Tolerating diet +BM today Objective Last 24 Hour Vital Signs Date Time Temp Pulse Resp B/P Pulse Ox O2 Delivery O2 Flow Rate FiO2 02/21/17 12:00 16 02/21/17 11:39 98.3 80 20 109/53 99 Room Air 02/21/17 08:34 97.3 75 20 103/57 97 Room Air 02/21/17 08:00 16 02/21/17 04:00 97.7 62 18 118/68 98 Room Air 02/21/17 04:00 16 02/21/17 00:00 16 02/21/17 00:00 98.1 72 18 102/56 98 Room Air 02/20/17 20:00 98.4 61 18 111/52 99 Room Air 02/20/17 20:00 16 02/20/17 16:09 98.3 86 20 123/61 100 Room Air Intake and Output 02/20/17 02/21/17 19:00 07:00 Intake Total 540 ml 327.5 ml Output Total 1200 ml 1400 ml Balance -660 ml -1072.5 ml Intake Oral 540 ml 300 ml IV Total 27.5 ml Output Urine Total 1200 ml 1400 ml # Voids 1 1 Height (Feet): 5 Height (Inches): 7.00 Weight (Pounds): 182 Objective General: alert, cooperative, no distress, appears stated age Head: normocephalic, without obvious abnormality, atraumatic Eyes: conjunctivae/corneas clear. PERRL, EOM's intact Throat: lips, mucosa, and tongue normal. MMM Neck: supple, symmetrical, trachea midline, and no JVD Lungs: clear to auscultation bilaterally Heart: regular rate and rhythm, S1, S2 normal, no murmur, click, rub or gallop Abdomen: soft, non-tender, non-distended, bowel sounds normal; no masses or organomegaly Dressings c/d/i Extremities: extremities normal, atraumatic, no cyanosis or edema Pulses: 2+ and symmetric Skin: skin color, texture, turgor normal; no rashes or lesions Neurologic: grossly normal, no focal deficits Patsy Bajwa M.D. Feb 21, 2017 13:45
[2017-02-21 15:20] VITALS: BP 120/66
[2017-02-21] MEDS: PCA HYDROmorphone 1mg/ml 30 ML IV PRN (16:16)
[2017-02-21 20:00] VITALS: BP 116/64
[2017-02-21] MEDS: ceFAZolin sod 1 GM in D5W 55 ML IVPB SCH (22:36)
[2017-02-22] MEDS ORDERED: DiphenhydrAMINE 50mg/ml Inj IVP PRN
[2017-02-22] MEDS ORDERED: LORazepam 1mg tab ORAL PRN
[2017-02-22] MEDS ORDERED: Rate Change PCA 1 Each MISC PRN
[2017-02-22] MEDS ORDERED: PCA HYDROmorphone 1mg/ml 30 ML IV PRN
[2017-02-22] MEDS ORDERED: Naloxone 0.4mg/ml Inj IVP PRN
[2017-02-22 04:00] VITALS: BP 112/60
[2017-02-22] MEDS: ceFAZolin sod 1 GM in D5W 55 ML IVPB SCH ×4 (05:27→21:12)
[2017-02-22] MEDS: PCA shift volume MISC SCH ×2 (07:04→19:00)
[2017-02-22] MEDS ORDERED: Surgicel 4in x 8in TOPIC ONE (07:54)
[2017-02-22] MEDS ORDERED: Lidocaine 1% 10mg/ml/Epi 0.005mg/ml 30ml vial INJ ONE (07:55)
[2017-02-22] MEDS ORDERED: Bacitracin 50000 Units Vial ONE (07:55)
[2017-02-22 08:00] VITALS: BP 113/54
[2017-02-22] MEDS: Heparin 5000 units/ml inj SUBQ SCH ×2 (08:30→21:10)
[2017-02-22] MEDS: Docusate 100mg cap ORAL SCH ×2 (08:30→17:11)
[2017-02-22 12:00] VITALS: BP 103/41
--- NOTE | 2017-02-22 13:14 | General Progress Note ---
Assessment/Plan Problem List: (1) Abscess ICD Codes: L02.91 - Cutaneous abscess, unspecified SNOMED: 139252184 Status: stable Assessment/Plan - s/p Bilateral groin wound exploration and debridement on 02/17/17 - [facility] plastic surgery rec's - Cefazolin (02/21-), s/p zosyn (02/16-02/21) - f/u culture from OR-->E. Coli - encourage mobilization/ambulation - encourage incentive spirometry to optimize pulmonary hygiene - DVT/GI prophylaxis as appropriate - ctm CBC and hemodynamics - ctm electrolytes, adjust/replete prn - optimize nutrition - pain control, supportive care, bowel regimen - wound care per surgery - home health for wound care at home ordered A total of 31min of additional time was spent in addition to normal encounter time for care/coordination and counseling. D/w pt, surgery, RN regarding mgmt and disposition. Subjective Date patient seen: Feb 22, 2017 Time patient seen: 13:14 Allergies: Coded Allergies: No Known Allergies (Unverified , 01/26/17) Subjective POD#5 Doing well Pain controlled Tolerating diet +BM today Objective Last 24 Hour Vital Signs Date Time Temp Pulse Resp B/P Pulse Ox O2 Delivery O2 Flow Rate FiO2 02/22/17 12:30 15 02/22/17 12:00 98.2 56 16 103/41 99 Room Air 02/22/17 08:00 97.9 69 16 113/54 97 Room Air 02/22/17 08:00 15 02/22/17 04:00 16 02/22/17 04:00 98.1 67 16 112/60 99 Room Air 02/22/17 00:00 16 02/21/17 20:00 16 02/21/17 20:00 97.2 72 18 116/64 99 Room Air 02/21/17 16:00 16 02/21/17 15:20 97.7 76 20 120/66 99 Room Air Intake and Output 02/21/17 02/22/17 19:00 07:00 Intake Total 852.5 ml 300 ml Output Total 550 ml 800 ml Balance 302.5 ml -500 ml Intake Oral 660 ml 300 ml IV Total 192.5 ml Output Urine Total 550 ml 600 ml Emesis 200 ml # Voids 1 Height (Feet): 5 Height (Inches): 7.00 Weight (Pounds): 182 Objective General: alert, cooperative, no distress, appears stated age Head: normocephalic, without obvious abnormality, atraumatic Eyes: conjunctivae/corneas clear. PERRL, EOM's intact Throat: lips, mucosa, and tongue normal. MMM Neck: supple, symmetrical, trachea midline, and no JVD Lungs: clear to auscultation bilaterally Heart: regular rate and rhythm, S1, S2 normal, no murmur, click, rub or gallop Abdomen: soft, non-tender, non-distended, bowel sounds normal; no masses or organomegaly Dressings c/d/i Extremities: extremities normal, atraumatic, no cyanosis or edema Pulses: 2+ and symmetric Skin: skin color, texture, turgor normal; no rashes or lesions Neurologic: grossly normal, no focal deficits Patsy Bajwa M.D. Feb 22, 2017 13:14
[2017-02-22 16:00] VITALS: BP 112/69
[2017-02-22 20:28] VITALS: BP 130/67
[2017-02-23 00:15] VITALS: BP 136/75
[2017-02-23 04:21] VITALS: BP 130/70
[2017-02-23] MEDS: PCA shift volume MISC SCH ×2 (07:00→19:00)
[2017-02-23 08:10] VITALS: BP 104/48
[2017-02-23] MEDS: Docusate 100mg cap ORAL SCH ×2 (09:00→17:17)
[2017-02-23] MEDS ORDERED: NS 550ML IV ONE (10:30)
[2017-02-23] MEDS ORDERED: Tubing IV Secondary IV ONE (10:30)
[2017-02-23] MEDS ORDERED: NS 275ml ONE (10:30)
[2017-02-23] MEDS: Heparin 5000 units/ml inj SUBQ SCH ×2 (10:33→21:31)
[2017-02-23 12:00] VITALS: BP 114/59
[2017-02-23] MEDS: ceFAZolin sod 1 GM in D5W 55 ML IVPB SCH ×2 (15:00→21:31)
[2017-02-23 16:00] VITALS: BP 118/74
--- NOTE | 2017-02-23 17:00 | General Progress Note ---
Assessment/Plan Problem List: (1) Abscess Assessment & Plan: s/p debridement and wound exploration Cont IV abx Supp care Pain control DVT ppx IV fluids Bowel regimen Wound care per surgery ICD Codes: L02.91 - Cutaneous abscess, unspecified SNOMED: 054768005 Subjective Date patient seen: Feb 23, 2017 Time patient seen: 16:58 ROS Limited/Unobtainable: No Allergies: Coded Allergies: No Known Allergies (Unverified , 01/26/17) Subjective No acute overnight events, no new complaints, no chest pain or dyspnea, postop pain well controlled. Objective Last 24 Hour Vital Signs Date Time Temp Pulse Resp B/P Pulse Ox O2 Delivery O2 Flow Rate FiO2 02/23/17 16:00 18 02/23/17 12:00 18 02/23/17 12:00 97.7 62 20 114/59 99 Room Air 02/23/17 08:10 98.2 74 15 104/48 98 Room Air 02/23/17 08:00 18 02/23/17 04:21 97.9 80 17 130/70 98 Room Air 02/23/17 04:00 16 02/23/17 00:15 98.1 74 18 136/75 99 Room Air 02/23/17 00:00 16 02/22/17 20:28 98.4 62 19 130/67 98 Room Air 02/22/17 20:00 16 Intake and Output 02/22/17 02/23/17 19:00 07:00 Intake Total 355 ml 240 ml Output Total 375 ml 550 ml Balance -20 ml -310 ml Intake Oral 300 ml 240 ml IV Total 55 ml Output Urine Total 375 ml 550 ml # Voids 1 Height (Feet): 5 Height (Inches): 7.00 Weight (Pounds): 182 Objective General: alert, cooperative, no distress, appears stated age Head: normocephalic, without obvious abnormality, atraumatic Eyes: conjunctivae/corneas clear. PERRL, EOM's intact Throat: lips, mucosa, and tongue normal. MMM Neck: supple, symmetrical, trachea midline, and no JVD Lungs: clear to auscultation bilaterally Heart: regular rate and rhythm, S1, S2 normal, no murmur, click, rub or gallop Abdomen: soft, non-tender, non-distended, bowel sounds normal; no masses or organomegaly Extremities: axillary dressings appear c/d/i Pulses: 2+ and symmetric Skin: skin color, texture, turgor normal; no rashes or lesions Neurologic: grossly normal, no focal deficits GADIEL BLOCK Feb 23, 2017 17:00
[2017-02-23 20:00] VITALS: BP 125/93
[2017-02-23] MEDS: Neosporin Oint 15gm TOPIC SCH (21:31)
[2017-02-23] MEDS ORDERED: Naloxone 0.4mg/ml Inj IVP PRN (22:43)
[2017-02-23] MEDS ORDERED: Rate Change PCA 1 Each MISC PRN (22:45)
[2017-02-24] MEDS ORDERED: PCA HYDROmorphone 1mg/ml 30 ML IV PRN
[2017-02-24] MEDS ORDERED: DiphenhydrAMINE 50mg/ml Inj IVP PRN
[2017-02-24 00:22] VITALS: BP 105/64
[2017-02-24 04:00] VITALS: BP 107/51
[2017-02-24] MEDS: ceFAZolin sod 1 GM in D5W 55 ML IVPB SCH ×3 (05:20→21:26)
[2017-02-24] MEDS ORDERED: PCA shift volume MISC SCH (07:00)
--- NOTE | 2017-02-24 08:03 | General Progress Note ---
Assessment/Plan Problem List: (1) Abscess Assessment & Plan: s/p debridement and wound exploration Cont IV abx Supp care Pain control DVT ppx IV fluids Bowel regimen Wound care per surgery ICD Codes: L02.91 - Cutaneous abscess, unspecified SNOMED: 584125161 Subjective Date patient seen: Feb 24, 2017 Time patient seen: 08:03 ROS Limited/Unobtainable: No Allergies: Coded Allergies: No Known Allergies (Unverified , 01/26/17) Subjective No acute overnight events, no new complaints, no chest pain or dyspnea, postop pain well controlled. Objective Last 24 Hour Vital Signs Date Time Temp Pulse Resp B/P Pulse Ox O2 Delivery O2 Flow Rate FiO2 02/24/17 04:00 17 02/24/17 04:00 97.7 68 20 107/51 99 Room Air 02/24/17 00:22 98.1 69 20 105/64 100 Room Air 02/24/17 00:00 16 02/23/17 20:00 17 02/23/17 20:00 98.2 108 20 125/93 97 Room Air 02/23/17 16:00 98.0 70 18 118/74 99 Room Air 02/23/17 16:00 18 02/23/17 12:00 18 02/23/17 12:00 97.7 62 20 114/59 99 Room Air 02/23/17 08:10 98.2 74 15 104/48 98 Room Air Intake and Output 02/23/17 02/24/17 19:00 07:00 Intake Total 720 ml 360 ml Output Total 600 ml Balance 120 ml 360 ml Intake Oral 720 ml 360 ml Output Urine Total 600 ml Height (Feet): 5 Height (Inches): 7.00 Weight (Pounds): 182 Objective General: alert, cooperative, no distress, appears stated age Head: normocephalic, without obvious abnormality, atraumatic Eyes: conjunctivae/corneas clear. PERRL, EOM's intact Throat: lips, mucosa, and tongue normal. MMM Neck: supple, symmetrical, trachea midline, and no JVD Lungs: clear to auscultation bilaterally Heart: regular rate and rhythm, S1, S2 normal, no murmur, click, rub or gallop Abdomen: soft, non-tender, non-distended, bowel sounds normal; no masses or organomegaly Extremities: axillary dressings appear c/d/i Pulses: 2+ and symmetric Skin: skin color, texture, turgor normal; no rashes or lesions Neurologic: grossly normal, no focal deficits GADIEL BLOCK Feb 24, 2017 08:03
[2017-02-24] MEDS: Docusate 100mg cap ORAL SCH ×2 (09:00→17:01)
[2017-02-24] MEDS: Neosporin Oint 15gm TOPIC SCH ×2 (09:14→17:28)
[2017-02-24] MEDS: Heparin 5000 units/ml inj SUBQ SCH ×2 (09:17→21:28)
[2017-02-24 11:54] VITALS: BP 114/53
[2017-02-24] MEDS ORDERED: HYDROmorphone 1mg/ml Carpuject IVP PRN (12:30)
[2017-02-24 16:00] VITALS: BP 108/69
[2017-02-24 20:00] VITALS: BP 126/68
[2017-02-25] VITALS: BP 118/61
[2017-02-25 04:00] VITALS: BP 124/81
[2017-02-25] MEDS: ceFAZolin sod 1 GM in D5W 55 ML IVPB SCH ×3 (05:30→22:00)
[2017-02-25 08:00] VITALS: BP 117/54
[2017-02-25] MEDS: Neosporin Oint 15gm TOPIC SCH ×2 (09:00→17:48)
[2017-02-25] MEDS: Heparin 5000 units/ml inj SUBQ SCH ×2 (09:00→20:30)
[2017-02-25] MEDS: Docusate 100mg cap ORAL SCH ×2 (09:00→17:49)
[2017-02-25 12:00] VITALS: BP 118/72
--- NOTE | 2017-02-25 14:21 | General Progress Note ---
Assessment/Plan Problem List: (1) Abscess Assessment & Plan: s/p debridement and wound exploration Cont IV abx Supp care Pain control DVT ppx IV fluids Bowel regimen Wound care per surgery ICD Codes: L02.91 - Cutaneous abscess, unspecified SNOMED: [id number] Subjective Date patient seen: Feb 25, 2017 Time patient seen: 14:21 ROS Limited/Unobtainable: No Allergies: Coded Allergies: No Known Allergies (Unverified , 01/26/17) Subjective No acute overnight events, no new complaints, no chest pain or dyspnea, postop pain well controlled. Objective Last 24 Hour Vital Signs Date Time Temp Pulse Resp B/P Pulse Ox O2 Delivery O2 Flow Rate FiO2 02/25/17 12:00 97.8 66 16 118/72 94 Room Air 02/25/17 08:00 97.9 59 19 117/54 98 Room Air 02/25/17 04:00 98.2 73 18 124/81 97 Room Air 02/25/17 00:00 98.1 78 18 118/61 98 Room Air 02/24/17 20:00 97.9 60 16 126/68 97 Room Air 02/24/17 16:00 97.3 76 18 108/69 97 Room Air Intake and Output 02/24/17 02/25/17 19:00 07:00 Intake Total 895 ml 400 ml Output Total 850 ml 800 ml Balance 45 ml -400 ml Intake Oral 840 ml 400 ml IV Total 55 ml Output Urine Total 850 ml 800 ml Height (Feet): 5 Height (Inches): 7.00 Weight (Pounds): 182 Objective General: alert, cooperative, no distress, appears stated age Head: normocephalic, without obvious abnormality, atraumatic Eyes: conjunctivae/corneas clear. PERRL, EOM's intact Throat: lips, mucosa, and tongue normal. MMM Neck: supple, symmetrical, trachea midline, and no JVD Lungs: clear to auscultation bilaterally Heart: regular rate and rhythm, S1, S2 normal, no murmur, click, rub or gallop Abdomen: soft, non-tender, non-distended, bowel sounds normal; no masses or organomegaly Extremities: axillary dressings appear c/d/i Pulses: 2+ and symmetric Skin: skin color, texture, turgor normal; no rashes or lesions Neurologic: grossly normal, no focal deficits GADIEL BLOCK Feb 25, 2017 14:21
[2017-02-25 16:00] VITALS: BP 122/68
[2017-02-25 20:06] VITALS: BP 103/73
[2017-02-26 00:09] VITALS: BP 110/70
[2017-02-26 04:00] VITALS: BP 99/60
[2017-02-26] MEDS: ceFAZolin sod 1 GM in D5W 55 ML IVPB SCH (06:00)
[2017-02-26] MEDS ORDERED: Tubing IV Secondary IV ONE (07:09)
--- NOTE | 2017-02-26 11:37 | Discharge Summary ---
Discharge Summary Hospital Course Date of Admission Feb 17, 2017 at 03:01 Date of Discharge Feb 26, 2017 at 07:10 Admitting Diagnosis Abscess Reason for Hospitalization: as above HPI Mayra Burrell is a 26 year old female who was admitted on Feb 17, 2017 at 03 :01 for Abscess Consultations Surgery Procedures See operative reports Hospital Course 26 y/o AA female who presented with abscess, started on broad spectrum IV abx, seen by Surgery and taken to OR for debridement and washout, no periop or postop complications. Once wounds were stable and pain controlled on PO she was dced home with and home wound care along with levaquin as her wound grew out E.coli, she will f/u with her surgeon as outpt in 1-2 weeks Discharge Medications Discontinued Medications: Doxycycline Monohydrate* (Doxycycline Monohydrate*) 100 Mg Capsule 100 MG ORAL TWICE A DAY for 5 Days, #10 CAP 0 Refills Hydrocodone Bit/Acetaminophen 10-325* ([place] 10-325*) 1 Each Tablet 1 TAB ORAL Q6H PRN for For Pain, #40 TAB 0 Refills PRN PAIN Discharge Condition Upon Discharge: stable Discharge Disposition Patient was discharged to Home with Home Health(06) Discharge Diagnoses: (1) Abscess GADIEL BLOCK Feb 26, 2017 11:37
== END 2017-02-26 07:10 | disposition home health service (06) | DRG 920 ==
LOC: EMR 00:49 → 3E 03:01 → EDBEDREQ 03:21 → 3E 20:54
PROC: 0HD7XZZ Extraction of Abdomen Skin, External Approach (ICD-10-PCS; principal; 2017-02-17 12:00)
DX: T81.31XA Disruption of external operation (surgical) wound, not elsewhere classified, initial encounter (principal); L02.214 Cutaneous abscess of groin; B96.20 Unspecified Escherichia coli [E. coli] as the cause of diseases classified elsewhere; L73.2 Hidradenitis suppurativa; Y83.8 Other surgical procedures as the cause of abnormal reaction of the patient, or of later complication, without mention of misadventure at the time of the procedure
CPT/HCPCS: 36415; 80048; 83605; 85025; 85610; 85730; 87040; 87070; 87075; 87081; 87181; 87205; 94003; 94150; J2250; J2405; J2710

== ENCOUNTER 2017-05-23 14:06 | Inpatient (IN) | payer OTHER ==
[~2017-05-23] VITALS: Ht 170.2 cm; Wt 63.5 kg
[2017-05-23 14:17] VITALS: BP 114/62
--- NOTE | 2017-05-23 14:24 | Emergency Room Report ---
History of Present Illness General Chief Complaint: Skin Rash/Abscess Source: Patient Present Illness HPI This is a 26-year-old female who presented after increased discharge from her buttock area. The patient prior history of hidradenitis suppuritiva. Patient noted to have prior surgery for hidradenitis. She was sent to have surgical management by Dr. Cantu. Allergies: Coded Allergies: No Known Allergies (Unverified , 01/26/17) Patient History Past Medical History: see triage record Reviewed Nursing Documentation: PMH: Agreed, PSxH: Agreed Nursing Documentation-PMH Hx Asthma: Yes Hx Cancer: No Hx Gastrointestinal Problems: No Hx Neurological Problems: No Review of Systems All Other Systems: negative except mentioned in HPI Physical Exam Vital Signs Date Time Temp Pulse Resp B/P (MAP) Pulse Ox O2 Delivery O2 Flow Rate FiO2 05/23/17 14:07 98.1 94 20 103/69 99 Room Air Sp02 EP Interpretation: reviewed, normal General Appearance: normal inspection, well appearing, no apparent distress, alert, GCS 15, non-toxic Head: atraumatic ENT: normal ENT inspection, hearing grossly normal, normal voice Neck: normal inspection, full range of motion, supple, no bony tend Respiratory: normal inspection, lungs clear, normal breath sounds, no respiratory distress, no retraction, no wheezing Cardiovascular #1: regular rate, rhythm, no edema Gastrointestinal: normal inspection, normal bowel sounds, non tender, soft, no guarding, no hernia Genitourinary: no CVA tenderness Musculoskeletal: normal inspection, back normal, normal range of motion Neurologic: normal inspection, alert, oriented x3, responsive, speech normal Psychiatric: normal inspection, judgement/insight normal, mood/affect normal Skin: warm/dry, other - buttock hidradenitis lesion Medical Decision Making Diagnostic Impression: Primary Impression: Hidradenitis suppurativa ER Course Patient presented for skin rash. Differential diagnosis included wasn't limited to hidradenitis, abscess folliculitis among others.Because of complexity of patient's case laboratory testing and imaging studies were ordered.The patient is being admitted for operative management of hidradenitis suppuritiva. Patient was discussed with Dr. Miles for Dr. Dietrich. Labs Test 05/23/17 14:35 05/23/17 14:50 White Blood Count 8.3 K/UL (4.8-10.8) Red Blood Count 4.53 M/UL (4.20-5.40) Hemoglobin 12.2 G/DL (12.0-16.0) Hematocrit 38.5 % (37.0-47.0) Mean Corpuscular Volume 85 FL (80-99) Mean Corpuscular Hemoglobin 27.0 PG (27.0-31.0) Mean Corpuscular Hemoglobin Concent 31.8 G/DL (32.0-36.0) Red Cell Distribution Width 14.7 % (11.6-14.8) Platelet Count 266 K/UL (150-450) Mean Platelet Volume 6.9 FL (6.5-10.1) Neutrophils (%) (Auto) 55.6 % (45.0-75.0) Lymphocytes (%) (Auto) 36.3 % (20.0-45.0) Monocytes (%) (Auto) 6.0 % (1.0-10.0) Eosinophils (%) (Auto) 1.4 % (0.0-3.0) Basophils (%) (Auto) 0.7 % (0.0-2.0) Prothrombin Time 10.0 SEC (9.30-11.50) Prothromb Time International Ratio 1.0 (0.9-1.1) Activated Partial Thromboplast Time 28 SEC (23-33) Sodium Level 138 mEQ/L (135-145) Potassium Level 3.1 mEQ/L (3.4-4.9) Chloride Level 99 mEQ/L (98-107) Carbon Dioxide Level 27 mEQ/L (20-30) Anion Gap 12 (5-15) Blood Urea Nitrogen 10 mg/dL (7-23) Creatinine 0.8 mg/dL (0.5-0.9) Estimat Glomerular Filtration Rate > 60 mL/min (>60) Glucose Level 91 mg/dL (74-106) Calcium Level 9.4 mg/dL (8.6-10.2) Total Bilirubin < 0.2 mg/dL (0.0-1.2) Aspartate Amino Transf (AST/SGOT) 13 U/L (5-40) Alanine Aminotransferase (ALT/SGPT) 8 U/L (3-33) Alkaline Phosphatase 67 U/L (35-104) Total Protein 8.2 g/dL (6.6-8.7) Albumin 4.5 g/dL (3.5-5.2) Globulin 3.7 g/dL Albumin/Globulin Ratio 1.2 (1.0-2.7) Urine Color Pale yellow Urine Appearance Slightly cloudy Urine pH 6 (4.5-8.0) Urine Specific [place] 1.015 (1.005-1.035) Urine Protein Negative (NEGATIVE) Urine Glucose (UA) Negative (NEGATIVE) Urine Ketones Negative (NEGATIVE) Urine Occult Blood 1+ (NEGATIVE) Urine Nitrite Negative (NEGATIVE) Urine Bilirubin Negative (NEGATIVE) Urine Urobilinogen Normal MG/DL (0.0-1.0) Urine Leukocyte Esterase 1+ (NEGATIVE) Urine RBC 0-2 /HPF (0 - 2) Urine WBC 2-4 /HPF (0 - 2) Urine Squamous Epithelial Cells Moderate /LPF (NONE/OCC) Urine Bacteria Occasional /HPF (NONE) Urine HCG, Qualitative Negative Magnesium Level 2.1 mg/dL (1.7-2.5) Last Vital Signs Date Time Temp Pulse Resp B/P (MAP) Pulse Ox O2 Delivery O2 Flow Rate FiO2 05/23/17 14:07 98.1 94 20 103/69 99 Room Air Status: unchanged Disposition: ADMITTED INPATIENT Condition: Stable Tyree Sommer May 23, 2017 14:24
[2017-05-23 15:09] LABS: BASOPHILS % (AUTO) 0.7 % (0.0-2.0); EOSINOPHILS % (AUTO) 1.4 % (0.0-3.0); LYMPHOCYTES % (AUTO) 36.3 % (20.0-45.0); MEAN CORPUSCULAR HGB CONC 31.8 G/DL (32.0-36.0); MEAN CORPUSCULAR VOLUME 85 FL (80-99); MEAN PLATELET VOLUME 6.9 FL (6.5-10.1); NEUTROPHILS % (AUTO) 55.6 % (45.0-75.0); PLATELET COUNT 266 K/UL (150-450); RED BLOOD COUNT 4.53 M/UL (4.20-5.40); RED CELL DISTRIBUTION WIDTH 14.7 % (11.6-14.8); WHITE BLOOD COUNT 8.3 K/UL (4.8-10.8)
[2017-05-23 15:12] LABS: APPEARANCE,URINE SLIGHTLY CLOUDY; KETONES,URINE NEGATIVE (NEGATIVE); LEUKOCYTE ESTERASE ,URINE 1+ (NEGATIVE); NITRITE,URINE NEGATIVE (NEGATIVE); PH,URINE 6 (4.5-8.0); PROTEIN,URINE NEGATIVE (NEGATIVE); UROBILINOGEN,URINE NORMAL MG/DL (0.0-1.0)
--- NOTE | 2017-05-23 15:15 | Diagnostic Imaging Report ---
Indication: Dyspnea Comparison: 01/26/17 A single view chest radiograph was obtained. Findings: Cardiomediastinal appearance is within normal limits for age. Pulmonary vascularity is appropriate. The diaphragmatic contour is smooth and costophrenic angles are sharp. No pleural effusions are identified. The bones are unremarkable. Impression: No acute findings
[2017-05-23 15:19] LABS: BACTERIA,URINE OCCASIONAL /HPF; RBC,URINE 0-2 /HPF (0 - 2); SQUAMOUS EPITHELIAL CELL,UR MODERATE /LPF (NONE/OCC)
[2017-05-23] MEDS ORDERED: ceFAZolin sod 1 GM in NS 55 ML IVPB ONE (15:30)
[2017-05-23 15:31] LABS: ALANINE AMINOTRANSFERASE 8 U/L (3-33); ALBUMIN/GLOBULIN RATIO 1.2 (1.0-2.7); ANION GAP 12 (5-15); ASPARTATE AMINO TRANSFERASE 13 U/L (5-40); CALCIUM 9.4 mg/dL (8.6-10.2); CARBON DIOXIDE 27 mEQ/L (20-30); CHLORIDE 99 mEQ/L (98-107); CREATININE 0.8 mg/dL (0.5-0.9); GLOMERULAR FILTRATION RATE > 60 mL/min (>60); HEMOLYSIS 3; POTASSIUM 3.1 mEQ/L (3.4-4.9); SODIUM 138 mEQ/L (135-145); TOTAL PROTEIN 8.2 g/dL (6.6-8.7)
[2017-05-23] MEDS ORDERED: Morphine Sulfate 2mg/ml Inj IVP PRN (16:00)
[2017-05-23] MEDS ORDERED: Morphine Sulfate 4mg/ml Inj IVP PRN (16:00)
[2017-05-23] MEDS ORDERED: Zolpidem 5mg tab ORAL PRN (16:00)
[2017-05-23] MEDS ORDERED: Mylanta II UD 30ml ORAL PRN (16:00)
[2017-05-23] MEDS ORDERED: Milk of Magnesia 30ml Ud ORAL PRN (16:00)
[2017-05-23 17:13] VITALS: BP 100/54
[2017-05-23] MEDS: D5 1/2NS w/KCl 20mEq 1,000 ML IV SCH (18:18)
--- NOTE | 2017-05-23 19:17 | History and Physical ---
History of Present Illness General Date patient seen: May 23, 2017 Time patient seen: 16:00 Reason for Hospitalization: Skin Rash/Abscess Present Illness HPI 26yo female with pmh of hidradenitis suppurative s/p surgery in February 2017 who presented after increased pain/swelling/discharge from her buttock area. Pt denies f/c, n/v, d/c, chest pain, SOB, abd pain, dysuria. Pt able to walk several blocks and climb several flights of stairs w/o chest pain or SOB. Allergies: Coded Allergies: No Known Allergies (Unverified , 01/26/17) Medication History Scheduled No Known Medications* (NKM - No Known Medications*), 0 ., (Reported) Patient History History Provided By: Patient, Medical Record, PMD Healthcare decision maker Resuscitation status Full Code Advanced Directive on File No Past Medical/Surgical History Past Medical/Surgical History: (1) Hidradenitis suppurativa Family History Family History: Patient reports no known family medical history. Social History Social History: (1) No significant social history Review of Systems ROS Narrative General: alert, cooperative, no distress, appears stated age Head: normocephalic, without obvious abnormality, atraumatic Eyes: conjunctivae/corneas clear. PERRL, EOM's intact Throat: lips, mucosa, and tongue normal. MMM Neck: supple, symmetrical, trachea midline, and no JVD Lungs: clear to auscultation bilaterally Heart: regular rate and rhythm, S1, S2 normal, no murmur, click, rub or gallop Abdomen: soft, non-tender, non-distended, bowel sounds normal; no masses or organomegaly Extremities: extremities normal, atraumatic, no cyanosis or edema Pulses: 2+ and symmetric Skin: skin color, texture, turgor normal; no rashes or lesions Neurologic: grossly normal, no focal deficits Physical Exam Physical Exam Narrative General: alert, cooperative, no distress, appears stated age Head: normocephalic, without obvious abnormality, atraumatic Eyes: conjunctivae/corneas clear. PERRL, EOM's intact Throat: lips, mucosa, and tongue normal. MMM Neck: supple, symmetrical, trachea midline, and no JVD Lungs: clear to auscultation bilaterally Heart: regular rate and rhythm, S1, S2 normal, no murmur, click, rub or gallop Abdomen: soft, non-tender, non-distended, bowel sounds normal; no masses or organomegaly Extremities: extremities normal, atraumatic, no cyanosis or edema Pulses: 2+ and symmetric Skin: +HS lesion of buttock Neurologic: grossly normal, no focal deficits Last 24 Hour Vital Signs Date Time Temp Pulse Resp B/P (MAP) Pulse Ox O2 Delivery O2 Flow Rate FiO2 05/23/17 17:13 98.5 18 100/54 99 Room Air 05/23/17 16:04 76 18 110/70 99 Room Air 05/23/17 14:17 98.0 93 16 114/62 100 Room Air 05/23/17 14:07 98.1 94 20 103/69 99 Room Air Intake and Output 05/23/17 05/24/17 19:00 07:00 Intake Total 55 ml Balance 55 ml Intake Oral 0 ml IV Total 55 ml # Voids 3 # Bowel Movements 1 Laboratory Tests Test 05/23/17 14:35 05/23/17 14:50 White Blood Count 8.3 K/UL (4.8-10.8) Red Blood Count 4.53 M/UL (4.20-5.40) Hemoglobin 12.2 G/DL (12.0-16.0) Hematocrit 38.5 % (37.0-47.0) Mean Corpuscular Volume 85 FL (80-99) Mean Corpuscular Hemoglobin 27.0 PG (27.0-31.0) Mean Corpuscular Hemoglobin Concent 31.8 G/DL (32.0-36.0) L Red Cell Distribution Width 14.7 % (11.6-14.8) Platelet Count 266 K/UL (150-450) Mean Platelet Volume 6.9 FL (6.5-10.1) Neutrophils (%) (Auto) 55.6 % (45.0-75.0) Lymphocytes (%) (Auto) 36.3 % (20.0-45.0) Monocytes (%) (Auto) 6.0 % (1.0-10.0) Eosinophils (%) (Auto) 1.4 % (0.0-3.0) Basophils (%) (Auto) 0.7 % (0.0-2.0) Prothrombin Time 10.0 SEC (9.30-11.50) Prothromb Time International Ratio 1.0 (0.9-1.1) Activated Partial Thromboplast Time 28 SEC (23-33) Sodium Level 138 mEQ/L (135-145) Potassium Level 3.1 mEQ/L (3.4-4.9) L Chloride Level 99 mEQ/L (98-107) Carbon Dioxide Level 27 mEQ/L (20-30) Anion Gap 12 (5-15) Blood Urea Nitrogen 10 mg/dL (7-23) Creatinine 0.8 mg/dL (0.5-0.9) Estimat Glomerular Filtration Rate > 60 mL/min (>60) Glucose Level 91 mg/dL (74-106) Calcium Level 9.4 mg/dL (8.6-10.2) Total Bilirubin < 0.2 mg/dL (0.0-1.2) Aspartate Amino Transf (AST/SGOT) 13 U/L (5-40) Alanine Aminotransferase (ALT/SGPT) 8 U/L (3-33) Alkaline Phosphatase 67 U/L (35-104) Total Protein 8.2 g/dL (6.6-8.7) Albumin 4.5 g/dL (3.5-5.2) Globulin 3.7 g/dL Albumin/Globulin Ratio 1.2 (1.0-2.7) Urine Color Pale yellow Urine Appearance Slightly cloudy Urine pH 6 (4.5-8.0) Urine Specific [place] 1.015 (1.005-1.035) Urine Protein Negative (NEGATIVE) Urine Glucose (UA) Negative (NEGATIVE) Urine Ketones Negative (NEGATIVE) Urine Occult Blood 1+ (NEGATIVE) H Urine Nitrite Negative (NEGATIVE) Urine Bilirubin Negative (NEGATIVE) Urine Urobilinogen Normal MG/DL (0.0-1.0) Urine Leukocyte Esterase 1+ (NEGATIVE) H Urine RBC 0-2 /HPF (0 - 2) Urine WBC 2-4 /HPF (0 - 2) Urine Squamous Epithelial Cells Moderate /LPF (NONE/OCC) H Urine Bacteria Occasional /HPF (NONE) Urine HCG, Qualitative Negative Magnesium Level 2.1 mg/dL (1.7-2.5) Height (Feet): 5 Height (Inches): 7.00 Weight (Pounds): 140 Medications Current Medications Medications (Trade) Dose Ordered Sig/Eduarda Route PRN Reason Start Time Stop Time Status Last Admin Dose Admin Acetaminophen (Tylenol) 650 mg Q4H PRN ORAL Mild Pain (Pain Scale 1-3) 05/23/17 16:00 06/22/17 15:59 Al Hydroxide/Mg Hydroxide (Mylanta II) 30 ml Q6H PRN ORAL dyspepsia 05/23/17 16:00 06/22/17 15:59 Cefazolin Sodium 1 gm/Dextrose 55 ml @ 110 mls/hr Q8HR IVPB 05/23/17 22:00 05/30/17 21:59 Dextrose (Dextrose 50%) STAT PRN IV Hypoglycemia 05/23/17 16:00 06/22/17 15:59 Dextrose/ Electrolytes 1,000 ml @ 75 mls/hr [id number] IV 05/23/17 17:30 06/22/17 17:29 05/23/17 18:18 Diphenhydramine HCl (Benadryl) 25 mg Q6H PRN ORAL Itching/Pruritis 05/23/17 16:00 06/22/17 15:59 Docusate Sodium (Colace) 100 mg EVERY 12 HOURS ORAL 05/23/17 21:00 06/22/17 20:59 Magnesium Hydroxide (Mom) 30 ml HSPRN PRN ORAL Constipation 05/23/17 16:00 06/22/17 15:59 Morphine Sulfate (Morphine Sulfate) 2 mg Q4H PRN IVP Moderate Pain (Pain Scale 4-6) 05/23/17 16:00 05/30/17 15:59 Morphine Sulfate (Morphine Sulfate) 4 mg Q4H PRN IVP Severe Pain (Pain Scale 7-10) 05/23/17 16:00 05/30/17 15:59 Zolpidem Tartrate (Ambien) 5 mg HSPRN PRN ORAL Insomnia 05/23/17 16:00 05/30/17 15:59 Assessment/Plan Problem List: (1) Abscess ICD Codes: L02.91 - Cutaneous abscess, unspecified SNOMED: 117987078 (2) Hidradenitis suppurativa ICD Codes: L73.2 - Hidradenitis suppurativa SNOMED: 08317428 Status: stable Assessment/Plan Admit inpt Plastic surgery consulted Check blood cultures x 2 Empiric IV ancef Wound care per surgery Pain control, bowel regimen Supportive care If patient is required to have surgery, based on the patient's medical history, and other available ancillary data, the patient is a LOW risk for an INTERMEDIATE risk procedure. Per the most recent ACC/AHA guidelines, the patient does not need any further cardiopulmonary testing prior to the procedure and there do not appear to be any clear medical contraindications to proceeding with the proposed procedure. D/w pt, RN, surgery regarding mgmt and disposition. Patsy Bajwa M.D. May 23, 2017 19:17
[2017-05-23 20:00] VITALS: BP 95/50
[2017-05-23] MEDS: Docusate 100mg cap ORAL SCH (21:00)
[2017-05-23] MEDS ORDERED: ceFAZolin 1gm/50ml Premix 50 ML IV SCH (22:00)
[2017-05-23] MEDS: ceFAZolin sod 1 GM in D5W 55 ML IVPB SCH (22:14)
[2017-05-24] VITALS (11 sets, daily range): BP systolic 92–126; BP diastolic 47–73
[2017-05-24] MEDS: ceFAZolin sod 1 GM in D5W 55 ML IVPB SCH ×3 (05:19→21:15)
[2017-05-24] MEDS: D5 1/2NS w/KCl 20mEq 1,000 ML IV SCH ×2 (05:23→21:16)
[2017-05-24 07:29] LABS: ANION GAP 7 (5-15); CALCIUM 8.9 mg/dL (8.6-10.2); CARBON DIOXIDE 27 mEQ/L (20-30); CHLORIDE 103 mEQ/L (98-107); CREATININE 0.8 mg/dL (0.5-0.9); GLOMERULAR FILTRATION RATE > 60 mL/min (>60); HEMOLYSIS 0; MAGNESIUM 1.8 mg/dL (1.7-2.5); SODIUM 137 mEQ/L (135-145)
[2017-05-24] MEDS: Docusate 100mg cap ORAL SCH ×2 (09:00→18:00)
[2017-05-24] MEDS ORDERED: Lidocaine 1% 10mg/ml/Epi 0.005mg/ml 30ml vial INJ ONE (09:29)
[2017-05-24] MEDS ORDERED: Bacitracin 50000 Units Vial ONE (09:29)
[2017-05-24] MEDS ORDERED: NeoSporin Gu Irrig 1ml Amp IRRIG ONE (09:29)
--- NOTE | 2017-05-24 11:55 | Pre-Procedure Note/Attestation ---
Pre-Procedure Note/Attestation Complete Prior to Procedure Planned Procedure: not applicable Procedure Narrative: Lower back wound debridement and flap elevation Attestation I attest that I discussed the nature of the procedure; its benefits; risks and complications; and alternatives (and the risks and benefits of such alternatives ), prior to the procedure, with the patient (or the patient's legal claim service representative). I attest that, if there was a reasonable possibility of needing a blood transfusion, the patient (or the patient's legal claim service representative) was given the [facility] standardized written summary, pursuant to the [place] Blood Safety Act ([place] Health and Safety Code # 1645, as amended). I attest that I re-evaluated the patient just prior to the surgery and that there has been no change in the patient's H&P, except as documented below: SADAF HICKS May 24, 2017 11:55
[2017-05-24] MEDS ORDERED: Rate Change PCA 1 Each MISC PRN (12:30)
[2017-05-24] MEDS ORDERED: Zemuron 50mg/5ml Inj IV ONE (12:30)
[2017-05-24] MEDS ORDERED: Midazolam 2mg/2ml Inj ONE (12:30)
[2017-05-24] MEDS ORDERED: PCA Education Pamphlet MISC SCH (12:30)
[2017-05-24] MEDS ORDERED: Propofol 200mg/20ml IV ONE (12:30)
[2017-05-24] MEDS ORDERED: Succinylcholine 20mg/ml 10ml vial ONE (12:30)
[2017-05-24] MEDS ORDERED: Sterile Water Irrig 1000ml IRRIG ONE (12:30)
[2017-05-24] MEDS ORDERED: Neostigmine 1mg/ml 10ml Inj ONE (12:30)
[2017-05-24] MEDS ORDERED: LR 1000ml ONE (12:30)
[2017-05-24] MEDS ORDERED: fentaNYL 100 mcg/2 mL IV ONE (12:30)
[2017-05-24] MEDS ORDERED: Ketorolac 30mg Inj ONE (12:30)
[2017-05-24] MEDS ORDERED: NS Irrig 1000ml ONE (12:30)
[2017-05-24] MEDS ORDERED: LR 1000ml 1,000 ML IVLG SCH (13:13)
--- NOTE | 2017-05-24 13:13 | Anethesia Preoperative Eval ---
Anesthesia Pre-op PMH/ROS General Date of Evaluation: May 24, 2017 Time of Evaluation: 12:22 Anesthesiologist: Kiah ASA Score: ASA 2 Mallampati Score Class I : Soft palate, uvula, fauces, pillars visible Class II: Soft palate, uvula, fauces visible Class III: Soft palate, base of uvula visible Class IV: Only hard plate visible Mallampati Classification: Class II Surgeon: Pepe Diagnosis: Recurrent HS Surgical Procedure: Excision of lower back HS Anesthesia History: PONV Family History: no anesthesia problems Allergies: Coded Allergies: No Known Allergies (Unverified , 01/26/17) Medications: see eMAR Past Medical History Cardiovascular: Denies: HTN, CAD, AL, valve dz, arrhythmia, other Pulmonary: Denies: asthma, COPD, SUKHWINDER, other Gastrointestinal/Genitourinary: Reports: GERD - mild Neurologic/Psychiatric: Reports: depression/anxiety, Denies: dementia, CVA, TIA, other Endocrine: Denies: DM, hypothyroidism, steroids, other HEENT: Denies: cataract (L), cataract (R), glaucoma, [place] (L), B[place] (R), other Hematology/Immune: Denies: anemia, DVT, bleeding disorder, other Musculoskeletal/Integumentary: Reports: other - recurrent HS, Denies: OA, RA, DJD, DDD, edema PMH Narrative: as above PSxH Narrative: Multiple Sx for HS treatment Anesthesia Pre-op Phys. Exam Physician Exam Last Vital Signs Date Time Temp Pulse Resp B/P (MAP) Pulse Ox O2 Delivery O2 Flow Rate FiO2 05/24/17 04:30 97.5 49 18 114/61 100 Room Air Constitutional: NAD Neurologic: CN 2-12 intact Cardiovascular: RRR, no M/R/G Respiratory: CTA Gastrointestinal: S/NT/ND Airway Exam Mallampati Score: Class II MO: full Neck: flexible Teeth: intact Dentures: no upper, no lower Anesthesia Pre-op A/P Labs Hematology Test 05/23/17 14:35 White Blood Count 8.3 K/UL (4.8-10.8) Red Blood Count 4.53 M/UL (4.20-5.40) Hemoglobin 12.2 G/DL (12.0-16.0) Hematocrit 38.5 % (37.0-47.0) Mean Corpuscular Volume 85 FL (80-99) Mean Corpuscular Hemoglobin 27.0 PG (27.0-31.0) Mean Corpuscular Hemoglobin Concent 31.8 G/DL (32.0-36.0) L Red Cell Distribution Width 14.7 % (11.6-14.8) Platelet Count 266 K/UL (150-450) Mean Platelet Volume 6.9 FL (6.5-10.1) Neutrophils (%) (Auto) 55.6 % (45.0-75.0) Lymphocytes (%) (Auto) 36.3 % (20.0-45.0) Monocytes (%) (Auto) 6.0 % (1.0-10.0) Eosinophils (%) (Auto) 1.4 % (0.0-3.0) Basophils (%) (Auto) 0.7 % (0.0-2.0) Coagulation Test 05/23/17 14:35 Prothrombin Time 10.0 SEC (9.30-11.50) Prothromb Time International Ratio 1.0 (0.9-1.1) Activated Partial Thromboplast Time 28 SEC (23-33) Chemistry Test 05/23/17 14:35 05/23/17 14:50 05/24/17 04:30 Sodium Level 138 mEQ/L (135-145) 137 mEQ/L (135-145) Potassium Level 3.1 mEQ/L (3.4-4.9) L 4.0 mEQ/L (3.4-4.9) Chloride Level 99 mEQ/L (98-107) 103 mEQ/L (98-107) Carbon Dioxide Level 27 mEQ/L (20-30) 27 mEQ/L (20-30) Anion Gap 12 (5-15) 7 (5-15) Blood Urea Nitrogen 10 mg/dL (7-23) 8 mg/dL (7-23) Creatinine 0.8 mg/dL (0.5-0.9) 0.8 mg/dL (0.5-0.9) Estimat Glomerular Filtration Rate > 60 mL/min (>60) > 60 mL/min (>60) Glucose Level 91 mg/dL (74-106) 101 mg/dL (74-106) Calcium Level 9.4 mg/dL (8.6-10.2) 8.9 mg/dL (8.6-10.2) Total Bilirubin < 0.2 mg/dL (0.0-1.2) Aspartate Amino Transf (AST/SGOT) 13 U/L (5-40) Alanine Aminotransferase (ALT/SGPT) 8 U/L (3-33) Alkaline Phosphatase 67 U/L (35-104) Total Protein 8.2 g/dL (6.6-8.7) Albumin 4.5 g/dL (3.5-5.2) Globulin 3.7 g/dL Albumin/Globulin Ratio 1.2 (1.0-2.7) Magnesium Level 2.1 mg/dL (1.7-2.5) 1.8 mg/dL (1.7-2.5) Urine Test Test 05/23/17 14:50 Urine HCG, Qualitative Negative Risk Assessment & Plan Assessment: ASA 2 Plan: GA with ETT prone position PONV prevention scopolamine patch ordered Status Change Before Surgery: No Pre-Antibiotics Drug: Ancef 1 gr. Given Within 1 Hr of Incision: Yes Time Given: 12:56 SHANIA MATTA M.D. May 24, 2017 13:13
[2017-05-24] MEDS ORDERED: Ketorolac 30mg Inj IV PRN (13:15)
[2017-05-24] MEDS ORDERED: DiphenhydrAMINE 50mg/ml Inj IVP PRN (13:15)
[2017-05-24] MEDS ORDERED: Hydromorphone 0.5mg/0.5ml inj IVP PRN (13:15)
[2017-05-24] MEDS ORDERED: Metoclopramide 10mg/2ml Inj IVP PRN (13:15)
[2017-05-24] MEDS ORDERED: Meperidine 25mg/0.5ml Inj (FOR RIGORS ONLY) IV PRN (13:15)
[2017-05-24] MEDS ORDERED: Midazolam 2mg/2ml Inj IVP PRN (13:15)
--- NOTE | 2017-05-24 13:30 | Operative Note - PDOC ---
Operative Note Operative Note Pre-op Diagnosis: Infected pilonidal cyst Procedure: Radical excision of lower back tissue with with flap elevation and wound vac placement Post-op Diagnosis: same as pre-op Surgeon: Pepe Log Hooker: Tyrone Anesthesia: general Specimen: yes Complications: none Condition: stable Estimated Blood Loss: minimal Drains: wound vac Implant(s) used?: No SADAF HICKS May 24, 2017 13:30
--- NOTE | 2017-05-24 13:45 | Immediate Post-Op Evaluation ---
Immediate Post-Op Evalulation Immediate Post-Op Evalulation Procedure: Excision of lower back hydradenitis Date of Evaluation: May 24, 2017 Time of Evaluation: 13:44 IV Fluids: 1000 Blood Products: none Estimated Blood Loss: 50 Urinary Output: none Blood Pressure Systolic: 108 Blood Pressure Diastolic: 58 Pulse Rate: 82 Respiratory Rate: 20 O2 Sat by Pulse Oximetry: 99 Temperature (Fahrenheit): 97.7 Pain Score (1-10): 2 Nausea: No Vomiting: No Complications none Patient Status: reacts, patent, extubated, none Hydration Status: adequate SHANIA MATTA M.D. May 24, 2017 13:44
[2017-05-24] MEDS: PCA HYDROmorphone 1mg/ml 30 ML IV PRN (14:15)
--- NOTE | 2017-05-24 17:46 | General Progress Note ---
Assessment/Plan Problem List: (1) Abscess ICD Codes: L02.91 - Cutaneous abscess, unspecified SNOMED: [id number] (2) Hidradenitis suppurativa ICD Codes: L73.2 - Hidradenitis suppurativa SNOMED: [id number] Status: stable Assessment/Plan Appreciate surgery rec's s/p radical excision of lower back tissue with with flap elevation and wound vac placement on 05/24/17 Cont empiric IV ancef F/u cultures Post operative recommendations include: - encourage mobilization/ambulation - encourage incentive spirometry to optimize pulmonary hygiene - DVT/GI prophylaxis as appropriate--SCDs, HSQ - pain control, supportive care, bowel regimen Full Code A total of 32min of extra time was spent in addition to normal encounter time for care/coordination and counseling. D/w pt/family, RN, surgery regarding mgmt and dispo. D/w Dr. Pepe singer postop rec's Subjective Date patient seen: May 24, 2017 Time patient seen: 15:00 ROS Limited/Unobtainable: No Constitutional: Reports: no symptoms HEENT: Reports: no symptoms Cardiovascular: Reports: no symptoms Respiratory: Reports: no symptoms Gastrointestinal/Abdominal: Reports: no symptoms Genitourinary: Reports: no symptoms Neurologic/Psychiatric: Reports: no symptoms Endocrine: Reports: no symptoms Hematologic/Lymphatic: Reports: no symptoms Allergies: Coded Allergies: No Known Allergies (Unverified , 01/26/17) All Systems: reviewed and negative except above Subjective No acute o/n events s/p radical excision of lower back tissue with with flap elevation and wound vac placement today POD#0 Pain controlled. Denies f/c, n/v, d/c, chest pain, SOB Objective Last 24 Hour Vital Signs Date Time Temp Pulse Resp B/P (MAP) Pulse Ox O2 Delivery O2 Flow Rate FiO2 05/24/17 15:00 15 05/24/17 14:55 98.0 05/24/17 14:54 98.0 05/24/17 14:45 16 05/24/17 14:30 64 15 117/66 100 Nasal Cannula 3.0 05/24/17 14:30 14 05/24/17 14:20 66 17 121/64 100 Nasal Cannula 3.0 05/24/17 14:15 15 05/24/17 14:10 64 15 117/65 100 Nasal Cannula 3.0 05/24/17 14:00 75 17 126/73 100 Nasal Cannula 3.0 05/24/17 13:50 70 18 118/47 100 Simple Mask 6.0 05/24/17 13:45 87 15 107/67 100 Simple Mask 6.0 05/24/17 13:44 82 20 99 05/24/17 13:40 89 13 100/61 100 Simple Mask 6.0 05/24/17 13:37 98.1 82 14 102/50 100 Simple Mask 6.0 05/24/17 04:30 97.5 49 18 114/61 100 Room Air 05/24/17 00:00 97.0 66 18 99/50 97 Room Air 05/23/17 20:00 97.4 64 18 95/50 98 Room Air Intake and Output 05/24/17 05/25/17 19:00 07:00 Intake Total 1400 ml Output Total 50 ml Balance 1350 ml IV Total 1400 ml Output Estimated Blood Loss 50 ml # Voids 1 Laboratory Tests 05/24/17 04:30: Sodium Level 137, Potassium Level 4.0, Chloride Level 103, Carbon Dioxide Level 27, Anion Gap 7, Blood Urea Nitrogen 8, Creatinine 0.8, Estimat Glomerular Filtration Rate > 60, Glucose Level 101, Calcium Level 8.9, Magnesium Level 1.8 Height (Feet): 5 Height (Inches): 7.00 Weight (Pounds): 140 Objective General: alert, cooperative, no distress, appears stated age Head: normocephalic, without obvious abnormality, atraumatic Eyes: conjunctivae/corneas clear. PERRL, EOM's intact Throat: lips, mucosa, and tongue normal. MMM Neck: supple, symmetrical, trachea midline, and no JVD Lungs: clear to auscultation bilaterally Heart: regular rate and rhythm, S1, S2 normal, no murmur, click, rub or gallop Abdomen: soft, non-tender, non-distended, bowel sounds normal; no masses or organomegaly Extremities: extremities normal, atraumatic, no cyanosis or edema Pulses: 2+ and symmetric Skin: dressing c/d/i Neurologic: grossly normal, no focal deficits Patsy Bajwa M.D. May 24, 2017 17:46
[2017-05-24] MEDS: PCA shift volume MISC SCH (19:25)
[2017-05-24] MEDS ORDERED: Zolpidem 5mg tab ORAL PRN (21:00)
[2017-05-24] MEDS: Heparin 5000 units/ml inj SUBQ SCH (21:20)
--- NOTE | 2017-05-24 22:45 | Consultation ---
DATE OF CONSULTATION: 05/24/2017 CONSULTING PHYSICIAN: Corry Cantu M.D. ADMITTING PHYSICIAN: Radha Charles M.D. History Of Present Illness: This is a 26-year-old female, who has had previous reconstruction following excision of hidradenitis, who presented with pain and drainage from her lower back wound secondary to an infected pilonidal cyst. The patient was started on IV antibiotics and I am seeing the patient in evaluation for this condition. PAST MEDICAL HISTORY: Significant for hidradenitis. Past Surgical History: Significant for radical excision of hidradenitis with reconstruction. MEDICATIONS: None. ALLERGIES: None. PHYSICAL EXAMINATION: GENERAL: The patient is alert and oriented x3. HEART: Regular rate and rhythm. ABDOMEN: Soft, nontender, and nondistended. Extremities: Examination of her posterior trunk reveals an area of induration and multiple abscesses in the lower back consistent with an infected pilonidal cyst. Assessment And Plan: This is a 26-year-old female with an infected pilonidal cyst in the lower back region. She will require a staged treatment with radical excision and flap elevation with staged closure. The reason for the staging is the fact that there is pus present within the wound. This will inhibit or delay the wound healing process. As such, staging it with interval wound VAC placement will optimize her healing. She understands the plan and agrees to proceed. Corry Cantu M.D. DR: BRANDON JOB#: [id number] CC:
--- NOTE | 2017-05-24 23:30 | Operative Note - Dictated ---
DATE OF OPERATION: 05/24/2017 PREOPERATIVE DIAGNOSIS: Infected lower back wound/pilonidal cyst. Postoperative Diagnosis: An infected lower back wound/pilonidal cyst. PROCEDURES: 1. Radical excision of infected lower back tissue. 2. Elevation of a right-sided fasciocutaneous gluteal flap for staged closure of lower back wound. 3. Elevation of a left-sided fasciocutaneous gluteal flap for closure of lower back wound. SURGEON: Corry Cantu M.D. TRACTOR DRIVER TEAMSTER: Cynthia Hansen M.D. ANESTHESIA: General. COMPLICATIONS: None. DRAINS: A wound VAC. DISPOSITION: Stable to the recovery room. Indications For Surgery: This is a 26-year-old female, who presented with an infected lower back wound consistent with an infected pilonidal cyst. Given the degree of infection, I felt that she was not an appropriate candidate for excision and reconstruction at the same time. As such, she was consented to undergo excision of the infected tissue with flap elevation followed by subsequent closure of the wound at a later date. She understands the risks and benefits of surgery and agrees to proceed. Details Of The Operation: The patient was brought to the operating room and laid in prone position on the operating room table. Her lower back was prepped and draped in a sterile and usual fashion. The area of her infection and disease was marked out using a marking pen, and there was an irregular pattern that was present. Once the markings were made, a #10 blade was used to make the skin incision outlining the margins of the defect, and electrocautery was then used to remove the entire infected tissue all the way down to the level of the presacral fascia. The defect that resulted was approximately 12 x 12 cm and was clearly not amenable to primary closure. As such, bilateral gluteal flaps had to be elevated, fasciocutaneous flaps. We first began it on the right side by lifting it off the gluteal fascia elevating the flaps based off of perforators of both the superior and inferior gluteal artery. The flaps were elevated with proximal and distal incisions on the right side. This provided some coverage of the wound, however, it needed to be bilateral for the wound to be completely closed without tension. As such, a contralateral left-sided gluteal fasciocutaneous flap was elevated based off of perforators of the inferior and superior gluteal arteries, elevated just above the level of the gluteus muscle fascia and with both flaps elevated, we noted that the wound could be brought together. However, again given the fact that this was an infected wound, I felt that it was not appropriate to perform definitive flap inset at this time. As such, a wound VAC was placed. The wound was partially closed on top of the wound VAC. The central 30% of the wound was left open to allow for drainage to the wound VAC. The plan will be to bring the patient back to the operating room in 48 hours for possible complete closure versus partial closure. If there were to be a partial closure, she would need a third procedure to complete the closure the following week. Corry Cantu M.D. DR: BRANDON JOB#: [id number] CC:
[2017-05-25] VITALS: BP 129/80
[2017-05-25 04:00] VITALS: BP 130/70
[2017-05-25] MEDS: D5 1/2NS w/KCl 20mEq 1,000 ML IV SCH ×3 (05:54→21:28)
[2017-05-25] MEDS: ceFAZolin sod 1 GM in D5W 55 ML IVPB SCH ×3 (05:54→21:28)
[2017-05-25] MEDS: PCA shift volume MISC SCH ×2 (07:25→19:03)
[2017-05-25] MEDS: Docusate 100mg cap ORAL SCH ×2 (09:00→18:00)
[2017-05-25] MEDS: Heparin 5000 units/ml inj SUBQ SCH ×2 (09:55→20:35)
--- NOTE | 2017-05-25 10:29 | General Progress Note ---
Progress Note Progress Note Pt seen and examined. Doing well. POD# 1 and pain well controlled. To OR tomorrow for closure of lower back wound. Sadaf Rey M.D. SADAF HICKS May 25, 2017 10:29
[2017-05-25 11:55] VITALS: BP 102/53
--- NOTE | 2017-05-25 11:59 | 48 Hour Post Anesthesia Eval ---
Post Anesthesia Evaluation Procedure: Excision of lower back hydradenitis Date of Evaluation: May 25, 2017 Time of Evaluation: 12:00 Blood Pressure Systolic: 130 0: 65 Pulse Rate: 56 Respiratory Rate: 18 Temperature (Fahrenheit): 98 O2 Sat by Pulse Oximetry: 99 Airway: patent Nausea: No Vomiting: No Hydration Status: adequate Mental Status/LOC: patient returned to baseline Follow-up care needed: patient intructions given Flex Trevino M.D. May 25, 2017 11:59
[2017-05-25 15:57] VITALS: BP 100/47
[2017-05-25] MEDS: PCA HYDROmorphone 1mg/ml 30 ML IV PRN (16:05)
[2017-05-25 20:00] VITALS: BP 101/63
--- NOTE | 2017-05-25 20:03 | General Progress Note ---
Assessment/Plan Problem List: (1) Abscess ICD Codes: L02.91 - Cutaneous abscess, unspecified SNOMED: 788379160 (2) Hidradenitis suppurativa ICD Codes: L73.2 - Hidradenitis suppurativa SNOMED: 23209318 (3) Hypokalemia ICD Codes: E87.6 - Hypokalemia SNOMED: 59997474 Status: stable Assessment/Plan Appreciate surgery rec's s/p radical excision of lower back tissue with with flap elevation and wound vac placement on 05/24/17 Plan for OR tomorrow for closure Cont empiric IV ancef F/u cultures Post operative recommendations include: - encourage mobilization/ambulation - encourage incentive spirometry to optimize pulmonary hygiene - DVT/GI prophylaxis as appropriate--SCDs, HSQ - pain control, supportive care, bowel regimen Full Code A total of 31min of extra time was spent in addition to normal encounter time for care/coordination and counseling. D/w pt/family, RN, surgery regarding mgmt and dispo. D/w Dr. Cantu re postop rec's Subjective Date patient seen: May 25, 2017 Time patient seen: 14:00 ROS Limited/Unobtainable: No Constitutional: Reports: no symptoms HEENT: Reports: no symptoms Cardiovascular: Reports: no symptoms Respiratory: Reports: no symptoms Gastrointestinal/Abdominal: Reports: no symptoms Genitourinary: Reports: no symptoms Neurologic/Psychiatric: Reports: no symptoms Endocrine: Reports: no symptoms Hematologic/Lymphatic: Reports: no symptoms Allergies: Coded Allergies: No Known Allergies (Unverified , 01/26/17) All Systems: reviewed and negative except above Subjective No acute o/n events s/p radical excision of lower back tissue with with flap elevation and wound vac placement yesterday POD#1 Pain controlled. Denies f/c, n/v, d/c, chest pain, SOB Ambulating Passing gas Objective Last 24 Hour Vital Signs Date Time Temp Pulse Resp B/P (MAP) Pulse Ox O2 Delivery O2 Flow Rate FiO2 05/25/17 16:00 19 05/25/17 15:57 98.1 61 21 100/47 100 Room Air 05/25/17 12:00 17 05/25/17 11:59 56 18 99 05/25/17 11:55 98.0 58 20 102/53 100 Room Air 05/25/17 08:00 18 05/25/17 04:00 18 05/25/17 04:00 97.5 65 19 130/70 98 Room Air 05/25/17 00:00 97.4 60 18 129/80 100 Room Air 05/25/17 00:00 17 Intake and Output 05/25/17 05/26/17 19:00 07:00 Intake Total 2045 ml Output Total 75 ml Balance 2045 ml -75 ml Intake Oral 1145 ml IV Total 900 ml Output Drainage Total 75 ml # Voids 1 Height (Feet): 5 Height (Inches): 7.00 Weight (Pounds): 140 Objective General: alert, cooperative, no distress, appears stated age Head: normocephalic, without obvious abnormality, atraumatic Eyes: conjunctivae/corneas clear. PERRL, EOM's intact Throat: lips, mucosa, and tongue normal. MMM Neck: supple, symmetrical, trachea midline, and no JVD Lungs: clear to auscultation bilaterally Heart: regular rate and rhythm, S1, S2 normal, no murmur, click, rub or gallop Abdomen: soft, non-tender, non-distended, bowel sounds normal; no masses or organomegaly Extremities: extremities normal, atraumatic, no cyanosis or edema Pulses: 2+ and symmetric Skin: dressing c/d/i Neurologic: grossly normal, no focal deficits Patsy Bajwa M.D. May 25, 2017 20:03
[2017-05-26] VITALS (13 sets, daily range): BP systolic 97–135; BP diastolic 45–88
[2017-05-26] MEDS: ceFAZolin sod 1 GM in D5W 55 ML IVPB SCH ×3 (05:23→21:04)
[2017-05-26] MEDS: PCA shift volume MISC SCH ×2 (07:12→19:28)
[2017-05-26] MEDS: Heparin 5000 units/ml inj SUBQ SCH ×2 (09:00→21:05)
[2017-05-26] MEDS: Docusate 100mg cap ORAL SCH ×2 (09:00→18:00)
[2017-05-26] MEDS: D5 1/2NS w/KCl 20mEq 1,000 ML IV SCH ×2 (12:10→17:19)
--- NOTE | 2017-05-26 12:44 | Pre-Procedure Note/Attestation ---
Pre-Procedure Note/Attestation Complete Prior to Procedure Planned Procedure: not applicable Procedure Narrative: Closure of lower back wound Indications for Procedure Pre-Operative Diagnosis: Infected pilonidal cyst Attestation I attest that I discussed the nature of the procedure; its benefits; risks and complications; and alternatives (and the risks and benefits of such alternatives ), prior to the procedure, with the patient (or the patient's legal customer assistance representative). I attest that, if there was a reasonable possibility of needing a blood transfusion, the patient (or the patient's legal customer assistance representative) was given the [facility] standardized written summary, pursuant to the Geovanny [place] Blood Safety Act ([place] Health and Safety Code # 1645, as amended). I attest that I re-evaluated the patient just prior to the surgery and that there has been no change in the patient's H&P, except as documented below: SADAF HICKS May 26, 2017 12:44
[2017-05-26] MEDS ORDERED: PCA Education Pamphlet MISC ONE (12:45)
[2017-05-26] MEDS ORDERED: Neostigmine 1mg/ml 10ml Inj ONE (13:00)
[2017-05-26] MEDS ORDERED: fentaNYL 100 mcg/2 mL IV ONE (13:00)
[2017-05-26] MEDS ORDERED: Midazolam 2mg/2ml Inj ONE (13:00)
[2017-05-26] MEDS ORDERED: LR 1000ml ONE (13:00)
[2017-05-26] MEDS ORDERED: NS Irrig 1000ml ONE (13:00)
[2017-05-26] MEDS ORDERED: Succinylcholine 20mg/ml 10ml vial ONE (13:00)
[2017-05-26] MEDS ORDERED: PCA HYDROmorphone 1mg/ml 30 ML IV PRN (13:00)
[2017-05-26] MEDS ORDERED: Sterile Water Irrig 1000ml IRRIG ONE (13:00)
[2017-05-26] MEDS ORDERED: Glycopyrrolate 0.2mg/ml 1ml Vial ONE (13:00)
[2017-05-26] MEDS ORDERED: Rate Change PCA 1 Each MISC PRN (13:00)
[2017-05-26] MEDS ORDERED: Ketorolac 30mg Inj ONE (13:00)
[2017-05-26] MEDS ORDERED: TransDerm Scop 1mg/72HR Patch TDERMAL ONE (13:25)
--- NOTE | 2017-05-26 13:39 | General Progress Note ---
Assessment/Plan Problem List: (1) Abscess ICD Codes: L02.91 - Cutaneous abscess, unspecified SNOMED: 675379645 (2) Hidradenitis suppurativa ICD Codes: L73.2 - Hidradenitis suppurativa SNOMED: 35905719 (3) Hypokalemia ICD Codes: E87.6 - Hypokalemia SNOMED: 66620140 Status: stable Assessment/Plan Appreciate surgery rec's s/p radical excision of lower back tissue with with flap elevation and wound vac placement on 05/24/17 Plan for OR today for closure Cont empiric IV ancef F/u cultures Post operative recommendations include: - encourage mobilization/ambulation - encourage incentive spirometry to optimize pulmonary hygiene - DVT/GI prophylaxis as appropriate--SCDs, HSQ - pain control, supportive care, bowel regimen Full Code A total of 32min of extra time was spent in addition to normal encounter time for care/coordination and counseling. D/w pt/family, RN, surgery regarding mgmt and dispo. D/w Dr. Cantu re postop rec's Subjective Date patient seen: May 26, 2017 Time patient seen: 12:00 ROS Limited/Unobtainable: No Constitutional: Reports: no symptoms HEENT: Reports: no symptoms Cardiovascular: Reports: no symptoms Respiratory: Reports: no symptoms Gastrointestinal/Abdominal: Reports: no symptoms Genitourinary: Reports: no symptoms Neurologic/Psychiatric: Reports: no symptoms Endocrine: Reports: no symptoms Hematologic/Lymphatic: Reports: no symptoms Allergies: Coded Allergies: No Known Allergies (Unverified , 01/26/17) All Systems: reviewed and negative except above Subjective No acute o/n events s/p radical excision of lower back tissue with with flap elevation and wound vac placement POD#2 NPO for OR today Pain controlled. Denies f/c, n/v, d/c, chest pain, SOB Ambulating Passing gas Objective Last 24 Hour Vital Signs Date Time Temp Pulse Resp B/P (MAP) Pulse Ox O2 Delivery O2 Flow Rate FiO2 05/26/17 08:00 98.3 61 18 97/58 98 Room Air 05/26/17 08:00 16 05/26/17 04:00 17 05/26/17 04:00 97.6 66 18 113/61 99 Room Air 05/26/17 00:00 19 05/26/17 00:00 98.3 86 18 108/74 98 Room Air 05/25/17 20:00 18 05/25/17 20:00 97.8 81 18 101/63 94 Room Air 05/25/17 16:00 19 05/25/17 15:57 98.1 61 21 100/47 100 Room Air Height (Feet): 5 Height (Inches): 7.00 Weight (Pounds): 140 Objective General: alert, cooperative, no distress, appears stated age Head: normocephalic, without obvious abnormality, atraumatic Eyes: conjunctivae/corneas clear. PERRL, EOM's intact Throat: lips, mucosa, and tongue normal. MMM Neck: supple, symmetrical, trachea midline, and no JVD Lungs: clear to auscultation bilaterally Heart: regular rate and rhythm, S1, S2 normal, no murmur, click, rub or gallop Abdomen: soft, non-tender, non-distended, bowel sounds normal; no masses or organomegaly Extremities: extremities normal, atraumatic, no cyanosis or edema Pulses: 2+ and symmetric Skin: dressing c/d/i Neurologic: grossly normal, no focal deficits Patsy Bajwa M.D. May 26, 2017 13:39
[2017-05-26] MEDS ORDERED: Tubing IV Secondary IV ONE (14:16)
[2017-05-26] MEDS ORDERED: LR 1000ml 1,000 ML IVLG SCH (14:17)
[2017-05-26] MEDS ORDERED: NeoSporin Gu Irrig 1ml Amp IRRIG ONE (14:23)
[2017-05-26] MEDS ORDERED: Bacitracin 50000 Units Vial ONE (14:23)
--- NOTE | 2017-05-26 14:23 | Operative Note - PDOC ---
Operative Note Operative Note Pre-op Diagnosis: Open lower back wound Procedure: Flap closure of lower back wound Post-op Diagnosis: same as pre-op Surgeon: Pepe Supervisor Customer Services: Tyrone Anesthesia: general Specimen: yes Complications: none Condition: stable Estimated Blood Loss: minimal Drains: wound vac Implant(s) used?: No SADAF HICKS May 26, 2017 14:23
[2017-05-26] MEDS ORDERED: Propofol 200mg/20ml IV ONE (14:27)
[2017-05-26] MEDS ORDERED: Meperidine 50mg/ml Inj(FOR RIGORS ONLY) IV PRN (14:30)
[2017-05-26] MEDS ORDERED: Midazolam 2mg/2ml Inj IVP PRN (14:30)
[2017-05-26] MEDS ORDERED: Ketorolac 30mg Inj IV PRN (14:30)
[2017-05-26] MEDS ORDERED: DiphenhydrAMINE 50mg/ml Inj IVP PRN (14:30)
[2017-05-26] MEDS ORDERED: Hydromorphone 0.5mg/0.5ml inj IVP PRN (14:30)
[2017-05-26] MEDS ORDERED: Metoclopramide 10mg/2ml Inj IVP PRN (14:30)
--- NOTE | 2017-05-26 14:58 | Anethesia Preoperative Eval ---
Anesthesia Pre-op PMH/ROS General Date of Evaluation: May 26, 2017 Time of Evaluation: 13:10 Anesthesiologist: Kiah ASA Score: ASA 2 Mallampati Score Class I : Soft palate, uvula, fauces, pillars visible Class II: Soft palate, uvula, fauces visible Class III: Soft palate, base of uvula visible Class IV: Only hard plate visible Mallampati Classification: Class II Surgeon: Pepe Diagnosis: Recurrent HS Surgical Procedure: Revision and closure of lower back wound Anesthesia History: none Family History: no anesthesia problems Allergies: Coded Allergies: No Known Allergies (Unverified , 01/26/17) Medications: see eMAR Past Medical History Cardiovascular: Denies: HTN, CAD, [place], valve dz, arrhythmia, other Pulmonary: Denies: asthma, COPD, SUKHWINDER, other Gastrointestinal/Genitourinary: Denies: GERD, CRI, ESRD, other Neurologic/Psychiatric: Reports: depression/anxiety, Denies: dementia, CVA, TIA, other Endocrine: Denies: DM, hypothyroidism, steroids, other HEENT: Denies: cataract (L), cataract (R), glaucoma, [place] (L), [place] (R), other Hematology/Immune: Denies: anemia, DVT, bleeding disorder, other Musculoskeletal/Integumentary: Denies: OA, RA, DJD, DDD, edema, other PMH Narrative: as above PSxH Narrative: see H&P Anesthesia Pre-op Phys. Exam Physician Exam Last Vital Signs Date Time Temp Pulse Resp B/P (MAP) Pulse Ox O2 Delivery O2 Flow Rate FiO2 05/26/17 08:00 98.3 61 18 97/58 98 Room Air 05/24/17 14:30 3.0 Constitutional: NAD Neurologic: CN 2-12 intact Cardiovascular: RRR, no M/R/G Respiratory: CTA Gastrointestinal: S/NT/ND Airway Exam Mallampati Score: Class II MO: full Neck: flexible ROM: full Teeth: intact Dentures: no upper, no lower Anesthesia Pre-op A/P Risk Assessment & Plan Assessment: ASA 2 Plan: GA with ETT prone position Status Change Before Surgery: No Pre-Antibiotics Drug: Ancef 1 gr. Given Within 1 Hr of Incision: Yes Time Given: 13:30 SHANIA MATTA M.D. May 26, 2017 14:58
--- NOTE | 2017-05-26 15:01 | Immediate Post-Op Evaluation ---
Immediate Post-Op Evalulation Immediate Post-Op Evalulation Procedure: Revision and closure of lower back wound Date of Evaluation: May 26, 2017 Time of Evaluation: 15:00 IV Fluids: 800 Blood Products: none Estimated Blood Loss: 50 Urinary Output: none Blood Pressure Systolic: 107 Blood Pressure Diastolic: 66 Pulse Rate: 82 Respiratory Rate: 20 O2 Sat by Pulse Oximetry: 99 Temperature (Fahrenheit): 97.7 Pain Score (1-10): 2 Nausea: No Vomiting: No Complications none Patient Status: reacts, patent, extubated, none Hydration Status: adequate SHANIA MATTA M.D. May 26, 2017 15:00
[2017-05-26] MEDS ORDERED: Zolpidem 5mg tab ORAL PRN (20:00)
--- NOTE | 2017-05-26 23:15 | Operative Note - Dictated ---
DATE OF OPERATION: 05/26/2017 PREOPERATIVE DIAGNOSIS: Open lower back wound. POSTOPERATIVE DIAGNOSIS: Open lower back wound. PROCEDURES: 1. Preparation of lower back wound for flap closure. 2. Left fasciocutaneous flap advancement and closure of lower back wound. 3. Right-sided fasciocutaneous flap advancement and closure of her lower back wound. 4. Wound VAC placement. SURGEON: Corry Cantu M.D. LOAN SUPERVISOR: Cynthia Hansen M.D. ANESTHESIA: General. COMPLICATIONS: None. DRAINS: Included a wound VAC. DISPOSITION: Stable to the recovery room. Indications For Surgery: This is a 26-year-old female, who is now two days postop from radical excision of infected lower back pilonidal cyst tissue, who also underwent flap elevation at that time, who underwent placement of a wound VAC, and is now ready to undergo a near complete closure of her lower back wound. She understands the risks and benefits of surgery and agrees to proceed. Details Of The Operation: The patient was brought to the operating room and after induction of anesthesia, was placed in the prone position on the operating room table. Her lower back was prepped and draped in a sterile and usual fashion. We first began by debriding the nonviable tissue from the lower back wound and once this was done, the wound was copiously irrigated with pulse lavage and the flaps were then readvanced and noted to be of adequate mobility and prior to definitive flap advancement, we placed fibrin glue or Thissel in the wound bed to help the adherence of the flap tissue to the underlying wound bed and once this was done, the superior aspect of the wound, the upper 40% and the lower 40% of the wound were closed by flap advancement from elevating the left side and as well as the right-sided fasciocutaneous gluteal flaps based off of perforators of the superior and inferior gluteal arteries. These flaps were advanced and brought together in the midline using #0 and 2-0 Vicryl sutures to close the deep and superficial tissues and a #0 Prolene was used to close the skin in a vertical mattress fashion. The central 20% of the wound was left open. Because there was some tension at this point with the flaps being pulled too much at that point and we felt that delaying this for an additional three days by putting an interval wound VAC would be prudent to help optimize the healing and lower the risk of dehiscence of the wound. The wound VAC was then secured in place at 150 mmHg and was noted to be functioning fine. The patient tolerated the procedure well. There was no complications. Corry Cantu M.D. DR: BRANDON JOB#: [id number] CC: SHYANN
[2017-05-27] VITALS: BP 111/62
[2017-05-27 04:00] VITALS: BP 113/57
[2017-05-27] MEDS: D5 1/2NS w/KCl 20mEq 1,000 ML IV SCH ×2 (06:00→19:58)
[2017-05-27] MEDS: ceFAZolin sod 1 GM in D5W 55 ML IVPB SCH ×3 (06:00→21:31)
[2017-05-27] MEDS: PCA shift volume MISC SCH ×3 (07:12→19:04)
[2017-05-27 08:00] VITALS: BP 112/51
[2017-05-27] MEDS: Docusate 100mg cap ORAL SCH ×2 (09:00→18:00)
[2017-05-27] MEDS: Heparin 5000 units/ml inj SUBQ SCH ×2 (09:48→20:00)
--- NOTE | 2017-05-27 10:22 | 48 Hour Post Anesthesia Eval ---
Post Anesthesia Evaluation Procedure: Revision and closure of lower back wound Date of Evaluation: May 27, 2017 Time of Evaluation: 10:21 Blood Pressure Systolic: 116 0: 54 Pulse Rate: 75 Respiratory Rate: 20 Temperature (Fahrenheit): 97.6 O2 Sat by Pulse Oximetry: 98 Airway: patent Nausea: No Vomiting: No Pain Intensity: 1 Hydration Status: adequate Cardiopulmonary Status: stable Mental Status/LOC: patient returned to baseline Follow-up Care/Observations: n/a Post-Anesthesia Complications: none Follow-up care needed: N/A SHANIA MATTA M.D. May 27, 2017 10:22
[2017-05-27 12:00] VITALS: BP 118/69
--- NOTE | 2017-05-27 12:10 | General Progress Note ---
Progress Note Progress Note Pt seen and examined. Doing well. POD # 1 from near complete closure of lower back wound. Wound vac in place. To OR on Monday for completion closure of lower back wound. Sadaf Hicks M.D. SADAF HICKS May 27, 2017 12:10
[2017-05-27] MEDS ORDERED: PCA HYDROmorphone 1mg/ml 30 ML IV PRN (12:15)
[2017-05-27] MEDS ORDERED: Rate Change PCA 1 Each MISC PRN (12:15)
[2017-05-27 16:00] VITALS: BP 108/59
--- NOTE | 2017-05-27 19:30 | General Progress Note ---
Assessment/Plan Problem List: (1) Abscess ICD Codes: L02.91 - Cutaneous abscess, unspecified SNOMED: 666201046 (2) Hidradenitis suppurativa ICD Codes: L73.2 - Hidradenitis suppurativa SNOMED: 64334428 (3) Hypokalemia ICD Codes: E87.6 - Hypokalemia SNOMED: 30206603 Status: stable Assessment/Plan Appreciate surgery rec's s/p radical excision of lower back tissue with with flap elevation and wound vac placement on 05/24/17 s/p near complete flap closure of lower back wound on 05/26/17 Cont empiric IV ancef F/u cultures Post operative recommendations include: - encourage mobilization/ambulation - encourage incentive spirometry to optimize pulmonary hygiene - DVT/GI prophylaxis as appropriate--SCDs, HSQ - pain control, supportive care, bowel regimen Full Code A total of 31min of extra time was spent in addition to normal encounter time for care/coordination and counseling. D/w pt/family, RN, surgery regarding mgmt and dispo. D/w Dr. Cantu re postop rec's Subjective Date patient seen: May 27, 2017 Time patient seen: 15:00 ROS Limited/Unobtainable: No Constitutional: Reports: no symptoms HEENT: Reports: no symptoms Cardiovascular: Reports: no symptoms Respiratory: Reports: no symptoms Gastrointestinal/Abdominal: Reports: no symptoms Genitourinary: Reports: no symptoms Neurologic/Psychiatric: Reports: no symptoms Endocrine: Reports: no symptoms Hematologic/Lymphatic: Reports: no symptoms Allergies: Coded Allergies: No Known Allergies (Unverified , 01/26/17) All Systems: reviewed and negative except above Subjective No acute o/n events s/p near complete closure of lower back wound yesterday POD#1 Pain controlled. Denies f/c, n/v, d/c, chest pain, SOB Ambulating Passing gas Objective Last 24 Hour Vital Signs Date Time Temp Pulse Resp B/P (MAP) Pulse Ox O2 Delivery O2 Flow Rate FiO2 05/27/17 16:00 97.7 66 20 108/59 98 Room Air 05/27/17 16:00 16 05/27/17 12:00 97.3 77 18 118/69 99 Room Air 05/27/17 12:00 16 05/27/17 10:22 75 20 98 05/27/17 08:00 97.9 83 18 112/51 98 Room Air 05/27/17 08:00 16 05/27/17 04:01 16 05/27/17 04:00 98.3 55 18 113/57 100 Room Air 05/27/17 00:00 16 05/27/17 00:00 97.5 56 18 111/62 99 Room Air 05/26/17 21:00 97.8 65 18 101/45 99 Room Air 05/26/17 20:00 18 05/26/17 20:00 97.8 65 18 101/45 99 Room Air Intake and Output 05/27/17 05/28/17 19:00 07:00 Intake Total 930 ml Output Total 15 ml Balance 915 ml Intake Oral 180 ml IV Total 750 ml Drainage Total 15 ml # Voids 2 Height (Feet): 5 Height (Inches): 7.00 Weight (Pounds): 140 Objective General: alert, cooperative, no distress, appears stated age Head: normocephalic, without obvious abnormality, atraumatic Eyes: conjunctivae/corneas clear. PERRL, EOM's intact Throat: lips, mucosa, and tongue normal. MMM Neck: supple, symmetrical, trachea midline, and no JVD Lungs: clear to auscultation bilaterally Heart: regular rate and rhythm, S1, S2 normal, no murmur, click, rub or gallop Abdomen: soft, non-tender, non-distended, bowel sounds normal; no masses or organomegaly Extremities: extremities normal, atraumatic, no cyanosis or edema Pulses: 2+ and symmetric Skin: dressing c/d/i Neurologic: grossly normal, no focal deficits Patsy Bajwa M.D. May 27, 2017 19:30
[2017-05-27 20:07] VITALS: BP 100/70
[2017-05-28 00:27] VITALS: BP 120/80
[2017-05-28 04:44] VITALS: BP 114/62
[2017-05-28] MEDS: ceFAZolin sod 1 GM in D5W 55 ML IVPB SCH ×3 (04:56→21:28)
[2017-05-28] MEDS: PCA shift volume MISC SCH ×2 (07:12→19:00)
[2017-05-28 09:00] VITALS: BP 96/51
[2017-05-28] MEDS: Docusate 100mg cap ORAL SCH ×2 (09:30→18:00)
[2017-05-28] MEDS: Heparin 5000 units/ml inj SUBQ SCH ×2 (09:32→20:56)
[2017-05-28] MEDS: D5 1/2NS w/KCl 20mEq 1,000 ML IV SCH ×2 (09:33→22:35)
[2017-05-28] MEDS ORDERED: Tubing IV Secondary IV ONE (09:45)
[2017-05-28 12:00] VITALS: BP 107/48
[2017-05-28 16:00] VITALS: BP 96/51
[2017-05-28 20:00] VITALS: BP 126/72
[2017-05-29] VITALS (18 sets, daily range): BP systolic 93–131; BP diastolic 44–82
[2017-05-29] MEDS: ceFAZolin sod 1 GM in D5W 55 ML IVPB SCH ×2 (05:19→17:06)
--- NOTE | 2017-05-29 07:17 | General Progress Note ---
Assessment/Plan Problem List: (1) Abscess ICD Codes: L02.91 - Cutaneous abscess, unspecified SNOMED: 028460765 (2) Hidradenitis suppurativa ICD Codes: L73.2 - Hidradenitis suppurativa SNOMED: 01550019 (3) Hypokalemia ICD Codes: E87.6 - Hypokalemia SNOMED: 89135073 Status: stable Assessment/Plan Appreciate surgery rec's s/p radical excision of lower back tissue with with flap elevation and wound vac placement on 05/24/17 s/p near complete flap closure of lower back wound on 05/26/17 Cont empiric IV ancef F/u cultures Post operative recommendations include: - encourage mobilization/ambulation - encourage incentive spirometry to optimize pulmonary hygiene - DVT/GI prophylaxis as appropriate--SCDs, HSQ - pain control, supportive care, bowel regimen Full Code A total of 31min of extra time was spent in addition to normal encounter time for care/coordination and counseling. D/w pt/family, RN, surgery regarding mgmt and dispo. D/w Dr. Cantu re postop rec's Subjective Date patient seen: May 28, 2017 Time patient seen: 16:00 ROS Limited/Unobtainable: No Constitutional: Reports: no symptoms HEENT: Reports: no symptoms Cardiovascular: Reports: no symptoms Respiratory: Reports: no symptoms Gastrointestinal/Abdominal: Reports: no symptoms Genitourinary: Reports: no symptoms Neurologic/Psychiatric: Reports: no symptoms Endocrine: Reports: no symptoms Hematologic/Lymphatic: Reports: no symptoms Allergies: Coded Allergies: No Known Allergies (Unverified , 01/26/17) All Systems: reviewed and negative except above Subjective No acute o/n events s/p near complete closure of lower back wound POD#2 Pain controlled. Denies f/c, n/v, d/c, chest pain, SOB Ambulating Passing gas C/o headache, relieved w/ tylenol Objective Last 24 Hour Vital Signs Date Time Temp Pulse Resp B/P (MAP) Pulse Ox O2 Delivery O2 Flow Rate FiO2 05/29/17 04:00 98.4 58 18 115/55 98 Room Air 05/29/17 00:00 98.4 63 18 131/82 94 Room Air 05/28/17 20:00 98.1 90 18 126/72 98 Room Air 05/28/17 17:15 97.0 05/28/17 16:00 98.5 61 18 96/51 100 Room Air 21 05/28/17 16:00 16 05/28/17 12:00 16 05/28/17 12:00 97.0 63 20 107/48 98 Room Air 05/28/17 09:00 98.5 61 18 96/51 98 Room Air 05/28/17 08:00 16 Height (Feet): 5 Height (Inches): 7.00 Weight (Pounds): 140 Objective General: alert, cooperative, no distress, appears stated age Head: normocephalic, without obvious abnormality, atraumatic Eyes: conjunctivae/corneas clear. PERRL, EOM's intact Throat: lips, mucosa, and tongue normal. MMM Neck: supple, symmetrical, trachea midline, and no JVD Lungs: clear to auscultation bilaterally Heart: regular rate and rhythm, S1, S2 normal, no murmur, click, rub or gallop Abdomen: soft, non-tender, non-distended, bowel sounds normal; no masses or organomegaly Extremities: extremities normal, atraumatic, no cyanosis or edema Pulses: 2+ and symmetric Skin: dressing c/d/i Neurologic: grossly normal, no focal deficits Patsy Bajwa M.D. May 29, 2017 07:17
[2017-05-29] MEDS ORDERED: TransDerm Scop 1mg/72HR Patch TDERMAL ONE (08:47)
[2017-05-29] MEDS ORDERED: Propofol 200mg/20ml IV ONE (08:48)
[2017-05-29] MEDS ORDERED: EPINEPHrine 1mg/1ml Amp ONE (08:48)
[2017-05-29] MEDS ORDERED: Bacitracin 50000 Units Vial ONE (08:49)
[2017-05-29] MEDS ORDERED: Lidocaine 1% 10mg/ml/Epi 0.005mg/ml 30ml vial INJ ONE ×2 (08:49)
[2017-05-29] MEDS ORDERED: NeoSporin Gu Irrig 1ml Amp IRRIG ONE (08:49)
[2017-05-29] MEDS: Docusate 100mg cap ORAL SCH ×2 (09:00→17:06)
[2017-05-29] MEDS: Heparin 5000 units/ml inj SUBQ SCH ×2 (09:00→21:20)
--- NOTE | 2017-05-29 09:38 | Pre-Procedure Note/Attestation ---
Pre-Procedure Note/Attestation Complete Prior to Procedure Planned Procedure: not applicable Procedure Narrative: Completion closure of lower back wound Indications for Procedure Pre-Operative Diagnosis: Open lower back wound Attestation I attest that I discussed the nature of the procedure; its benefits; risks and complications; and alternatives (and the risks and benefits of such alternatives ), prior to the procedure, with the patient (or the patient's legal career services representative). I attest that, if there was a reasonable possibility of needing a blood transfusion, the patient (or the patient's legal career services representative) was given the [facility] standardized written summary, pursuant to the Geovanny [place] Blood Safety Act ([place] Health and Safety Code # 1645, as amended). I attest that I re-evaluated the patient just prior to the surgery and that there has been no change in the patient's H&P, except as documented below: SADAF HICKS May 29, 2017 09:38
[2017-05-29] MEDS ORDERED: Zolpidem 5mg tab ORAL PRN (09:45)
[2017-05-29] MEDS ORDERED: Rate Change PCA 1 Each MISC PRN ×2 (09:45→11:30)
[2017-05-29] MEDS ORDERED: PCA HYDROmorphone 1mg/ml 30 ML IV PRN ×2 (09:45→11:30)
[2017-05-29] MEDS ORDERED: Glycopyrrolate 0.2mg/ml 1ml Vial ONE (10:00)
[2017-05-29] MEDS ORDERED: Zemuron 50mg/5ml Inj IV ONE (10:00)
[2017-05-29] MEDS ORDERED: fentaNYL 100 mcg/2 mL IV ONE (10:00)
[2017-05-29] MEDS ORDERED: Midazolam 2mg/2ml Inj ONE (10:00)
[2017-05-29] MEDS ORDERED: Lidocaine 1% MPF 10mg/ml 5ml ONE (10:00)
[2017-05-29] MEDS ORDERED: Dexamethasone 4mg/ml vial ONE (10:00)
[2017-05-29] MEDS ORDERED: Ketorolac 30mg Inj ONE (10:00)
[2017-05-29] MEDS ORDERED: NS Irrig 1000ml ONE (10:00)
[2017-05-29] MEDS ORDERED: Sterile Water Irrig 1000ml IRRIG ONE (10:00)
[2017-05-29] MEDS ORDERED: LR 1000ml ONE (10:00)
[2017-05-29] MEDS ORDERED: Succinylcholine 20mg/ml 10ml vial ONE (10:00)
[2017-05-29] MEDS ORDERED: Neostigmine 1mg/ml 10ml Inj ONE (10:00)
[2017-05-29] MEDS ORDERED: LR 1000ml 1,000 ML IVLG SCH (10:18)
--- NOTE | 2017-05-29 10:29 | Operative Note - PDOC ---
Operative Note Operative Note Pre-op Diagnosis: Open lower back wound Procedure: Completion closure of lower back wound Post-op Diagnosis: same as pre-op Surgeon: Pepe Antique Clock Repairer: Tyrone Anesthesia: general Specimen: yes Complications: none Condition: stable Estimated Blood Loss: minimal Drains: DAMIEN Implant(s) used?: No SADAF HICKS May 29, 2017 10:29
[2017-05-29] MEDS ORDERED: DiphenhydrAMINE 50mg/ml Inj IVP PRN ×2 (10:30→11:30)
[2017-05-29] MEDS ORDERED: Meperidine 50mg/ml Inj(FOR RIGORS ONLY) IV PRN (10:30)
[2017-05-29] MEDS ORDERED: Hydromorphone 0.5mg/0.5ml inj IVP PRN ×2 (10:30→11:30)
[2017-05-29] MEDS ORDERED: Midazolam 2mg/2ml Inj IVP PRN (10:30)
[2017-05-29] MEDS ORDERED: Metoclopramide 10mg/2ml Inj IVP PRN (10:30)
[2017-05-29] MEDS ORDERED: Ketorolac 30mg Inj IV PRN (10:30)
[2017-05-29] MEDS ORDERED: LORazepam 1mg tab ORAL PRN (11:30)
[2017-05-29] MEDS ORDERED: Naloxone 0.4mg/ml Inj IVP PRN (11:30)
--- NOTE | 2017-05-29 12:23 | Anethesia Preoperative Eval ---
Anesthesia Pre-op PMH/ROS General Date of Evaluation: May 29, 2017 Time of Evaluation: 09:20 Anesthesiologist: Kiah ASA Score: ASA 2 Mallampati Score Class I : Soft palate, uvula, fauces, pillars visible Class II: Soft palate, uvula, fauces visible Class III: Soft palate, base of uvula visible Class IV: Only hard plate visible Mallampati Classification: Class II Surgeon: Pepe Diagnosis: Recurrent HS Surgical Procedure: Lower back wound closure Anesthesia History: none, PONV Family History: no anesthesia problems Allergies: Coded Allergies: No Known Allergies (Unverified , 01/26/17) Medications: see eMAR Past Medical History Cardiovascular: Denies: HTN, CAD, [place], valve dz, arrhythmia, other Pulmonary: Denies: asthma, COPD, [place], other Gastrointestinal/Genitourinary: Denies: GERD, CRI, ESRD, other Neurologic/Psychiatric: Denies: dementia, CVA, depression/anxiety, TIA, other Endocrine: Denies: DM, hypothyroidism, steroids, other HEENT: Denies: cataract (L), cataract (R), glaucoma, [place] (L), [place] (R), other Hematology/Immune: Denies: anemia, DVT, bleeding disorder, other Musculoskeletal/Integumentary: Denies: OA, RA, DJD, DDD, edema, other PMH Narrative: as above PSxH Narrative: See H&P Anesthesia Pre-op Phys. Exam Physician Exam Last Vital Signs Date Time Temp Pulse Resp B/P (MAP) Pulse Ox O2 Delivery O2 Flow Rate FiO2 05/29/17 11:45 46 16 102/63 100 Nasal Cannula 3.0 05/29/17 10:42 97.4 05/28/17 16:00 21 Constitutional: NAD Neurologic: CN 2-12 intact Cardiovascular: RRR, no M/R/G Respiratory: CTA Gastrointestinal: S/NT/ND Airway Exam Mallampati Score: Class II MO: full Neck: flexible ROM: full Teeth: intact Dentures: no upper, no lower Anesthesia Pre-op A/P Labs See chart Risk Assessment & Plan Assessment: ASA 2 Plan: GA with ETT prone position Status Change Before Surgery: No Pre-Antibiotics Drug: Ancef 1 gr Given Within 1 Hr of Incision: Yes Time Given: 10:02 SHANIA MATTA M.D. May 29, 2017 12:23
--- NOTE | 2017-05-29 12:24 | Immediate Post-Op Evaluation ---
Immediate Post-Op Evalulation Immediate Post-Op Evalulation Procedure: Revision and closure of lower back wound Date of Evaluation: May 29, 2017 Time of Evaluation: 10:46 IV Fluids: 600 Blood Products: none Estimated Blood Loss: min Urinary Output: none Blood Pressure Systolic: 116 Blood Pressure Diastolic: 72 Pulse Rate: 76 Respiratory Rate: 20 O2 Sat by Pulse Oximetry: 99 Temperature (Fahrenheit): 97.9 Pain Score (1-10): 2 Nausea: No Vomiting: No Complications none Patient Status: reacts, patent, extubated, none Hydration Status: adequate SHANIA MATTA M.D. May 29, 2017 12:24
[2017-05-29] MEDS: D5 1/2NS w/KCl 20mEq 1,000 ML IV SCH (13:42)
--- NOTE | 2017-05-29 14:30 | General Progress Note ---
Assessment/Plan Problem List: (1) Abscess ICD Codes: L02.91 - Cutaneous abscess, unspecified SNOMED: 552949270 (2) Hidradenitis suppurativa ICD Codes: L73.2 - Hidradenitis suppurativa SNOMED: 53483037 (3) Hypokalemia ICD Codes: E87.6 - Hypokalemia SNOMED: 11471411 Assessment/Plan Appreciate surgery rec's s/p radical excision of lower back tissue with with flap elevation and wound vac placement on 05/24/17 s/p near complete flap closure of lower back wound on 05/26/17 Cont empiric IV ancef F/u cultures Post operative recommendations include: - encourage mobilization/ambulation - encourage incentive spirometry to optimize pulmonary hygiene - DVT/GI prophylaxis as appropriate--SCDs, HSQ - pain control, supportive care, bowel regimen Full Code A total of 31min of extra time was spent in addition to normal encounter time for care/coordination and counseling. D/w pt/family, RN, surgery regarding mgmt and dispo. D/w Dr. Cantu re postop rec's Subjective Date patient seen: May 29, 2017 Time patient seen: 14:29 ROS Limited/Unobtainable: No Constitutional: Reports: no symptoms HEENT: Reports: no symptoms Cardiovascular: Reports: no symptoms Respiratory: Reports: no symptoms Gastrointestinal/Abdominal: Reports: no symptoms Genitourinary: Reports: no symptoms Neurologic/Psychiatric: Reports: no symptoms Endocrine: Reports: no symptoms Hematologic/Lymphatic: Reports: no symptoms Allergies: Coded Allergies: No Known Allergies (Unverified , 01/26/17) All Systems: reviewed and negative except above Subjective No acute o/n events s/p completion closure of lower back wound today Pain controlled. Denies f/c, n/v, d/c, chest pain, SOB Ambulating Passing gas No further headache Objective Last 24 Hour Vital Signs Date Time Temp Pulse Resp B/P (MAP) Pulse Ox O2 Delivery O2 Flow Rate FiO2 05/29/17 13:30 97.2 67 17 114/61 97 Room Air 05/29/17 12:50 15 05/29/17 12:45 98.0 55 13 112/56 100 Nasal Cannula 3.0 05/29/17 12:30 57 16 117/60 100 Nasal Cannula 3.0 05/29/17 12:24 76 20 99 05/29/17 12:20 16 05/29/17 12:15 50 16 100/52 100 Nasal Cannula 3.0 05/29/17 12:05 16 05/29/17 12:05 98.0 05/29/17 12:00 51 16 93/48 100 Nasal Cannula 3.0 05/29/17 11:50 16 05/29/17 11:45 46 16 102/63 100 Nasal Cannula 3.0 05/29/17 11:35 50 16 107/61 100 Nasal Cannula 3.0 05/29/17 11:35 14 05/29/17 11:20 54 12 108/57 100 Nasal Cannula 3.0 05/29/17 11:10 50 15 107/59 100 Nasal Cannula 3.0 05/29/17 11:00 63 20 113/59 97 Nasal Cannula 3.0 05/29/17 10:52 64 23 109/65 97 Simple Mask 6.0 05/29/17 10:47 65 16 107/55 97 Simple Mask 6.0 05/29/17 10:42 97.4 72 28 103/69 97 Simple Mask 6.0 05/29/17 08:00 97.7 67 17 107/69 98 Room Air 05/29/17 04:00 98.4 58 18 115/55 98 Room Air 05/29/17 00:00 98.4 63 18 131/82 94 Room Air 05/28/17 20:00 98.1 90 18 126/72 98 Room Air 05/28/17 17:15 97.0 05/28/17 16:00 98.5 61 18 96/51 100 Room Air 21 05/28/17 16:00 16 Intake and Output 05/29/17 05/30/17 19:00 07:00 Intake Total 935 ml Output Total 15 ml Balance 920 ml Intake Oral 250 ml IV Total 685 ml Estimated Blood Loss 15 ml # Voids 1 Height (Feet): 5 Height (Inches): 7.00 Weight (Pounds): 140 Objective General: alert, cooperative, no distress, appears stated age Head: normocephalic, without obvious abnormality, atraumatic Eyes: conjunctivae/corneas clear. PERRL, EOM's intact Throat: lips, mucosa, and tongue normal. MMM Neck: supple, symmetrical, trachea midline, and no JVD Lungs: clear to auscultation bilaterally Heart: regular rate and rhythm, S1, S2 normal, no murmur, click, rub or gallop Abdomen: soft, non-tender, non-distended, bowel sounds normal; no masses or organomegaly Extremities: extremities normal, atraumatic, no cyanosis or edema Pulses: 2+ and symmetric Skin: dressing c/d/i Neurologic: grossly normal, no focal deficits Patsy Bajwa M.D. May 29, 2017 14:30
[2017-05-29] MEDS ORDERED: PCA Education Pamphlet MISC ONE (16:00)
--- NOTE | 2017-05-29 19:15 | Operative Note - Dictated ---
DATE OF OPERATION: 05/29/2017 PREOPERATIVE DIAGNOSIS: Open lower back wound. POSTOPERATIVE DIAGNOSIS: Open lower back wound. PROCEDURES: 1. Preparation of lower back wound for closure. 2. Completion closure of lower back wound. SURGEON: Corry Cantu M.D. GUM ROLLING MACHINE TENDER: Cynthia Hansen M.D ANESTHESIA: General. COMPLICATIONS: None. DRAINS: Included a DAMIEN drain and an incisional wound VAC. DISPOSITION: Stable to the recovery room. INDICATIONS FOR SURGERY: This is a 26-year-old female, who has undergone lower back wound radical excision with reconstruction, who was brought to the operating room 3 days ago for near complete closure of the wound, however, there was some tension in the middle of the wound which is why we left the wound open at that time, treated it with a wound VAC, and now she is prepared to undergo definitive and complete closure of the wound. She understands the risks and benefits of surgery and agrees to proceed. DETAILS OF THE OPERATION: The patient was brought to the operating room and laid in the prone position on the operating room table. Her lower back was prepped and draped in a sterile and usual fashion. The wound that was opened measured approximately 4 cm and it was 4 cm as well in depth. The wound was first copiously irrigated with pulse lavage and prepared for definitive closure. Prior to definitive closure, we placed fibrin glue within the wound bed to help promote the healing of the flaps. Once this was done, we then proceeded with the completion closure by re-advancing the flaps in the midline using #0 and 2-0 Vicryl sutures to close the deep layers and multiple interrupted vertical mattress sutures were used to close the skin, this was 0 Prolene that was used for this. An incisional wound VAC was placed on top of the incision to help promote the integrity of the incision and help to keep it together while she is recovering from the procedure. The patient tolerated the procedure well and there were no complications. Corry Cantu M.D. DR: Elian JOB#: [id number] CC:
[2017-05-29] MEDS: PCA shift volume MISC SCH (19:43)
[2017-05-30] MEDS ORDERED: Zolpidem 5mg tab ORAL PRN
[2017-05-30] MEDS: D5 1/2NS w/KCl 20mEq 1,000 ML IV SCH (01:15)
[2017-05-30] MEDS: ceFAZolin sod 1 GM in D5W 55 ML IVPB SCH ×3 (02:30→17:09)
[2017-05-30 04:00] VITALS: BP 119/60
[2017-05-30] MEDS: PCA shift volume MISC SCH (07:01)
--- NOTE | 2017-05-30 07:04 | 48 Hour Post Anesthesia Eval ---
Post Anesthesia Evaluation Procedure: Revision and closure of lower back wound Date of Evaluation: May 30, 2017 Time of Evaluation: 07:03 Blood Pressure Systolic: 119 0: 73 Pulse Rate: 50 Respiratory Rate: 18 Temperature (Fahrenheit): 97.7 O2 Sat by Pulse Oximetry: 97 Airway: patent Nausea: No Vomiting: No Pain Intensity: 2 Hydration Status: adequate Cardiopulmonary Status: Stable Mental Status/LOC: patient returned to baseline Follow-up Care/Observations: 0 Post-Anesthesia Complications: 0 Follow-up care needed: N/A Rober Dale MD May 30, 2017 07:04
[2017-05-30 08:29] LABS: BASOPHILS % (AUTO) 0.5 % (0.0-2.0); EOSINOPHILS % (AUTO) 0.6 % (0.0-3.0); LYMPHOCYTES % (AUTO) 24.7 % (20.0-45.0); MEAN CORPUSCULAR HGB CONC 33.1 G/DL (32.0-36.0); MEAN CORPUSCULAR VOLUME 85 FL (80-99); MEAN PLATELET VOLUME 7.1 FL (6.5-10.1); MONOCYTES % (AUTO) 7.6 % (1.0-10.0); NEUTROPHILS % (AUTO) 66.7 % (45.0-75.0); PLATELET COUNT 234 K/UL (150-450); RED BLOOD COUNT 3.85 M/UL (4.20-5.40); RED CELL DISTRIBUTION WIDTH 14.6 % (11.6-14.8); WHITE BLOOD COUNT 9.1 K/UL (4.8-10.8)
--- NOTE | 2017-05-30 08:40 | General Progress Note ---
Progress Note Progress Note Pt seen and examined. POD # 1 from completion closure and doing well. Continue IV abx and pain control. Woudn vac to be taken down in 2/3 days. Sadaf Hicks M.D. SADAF HICKS May 30, 2017 08:40
[2017-05-30 09:00] VITALS: BP 120/59
[2017-05-30] MEDS: Docusate 100mg cap ORAL SCH ×2 (09:00→17:10)
[2017-05-30 09:23] LABS: ANION GAP 8 (5-15); CARBON DIOXIDE 26 MMOL/L (21-32); CHLORIDE 107 MMOL/L (98-107); CREATININE 0.8 MG/DL (0.55-1.30); GLOMERULAR FILTRATION RATE > 60 mL/min (>60); POTASSIUM 3.5 MMOL/L (3.5-5.1); SODIUM 141 MMOL/L (136-145)
[2017-05-30] MEDS: Heparin 5000 units/ml inj SUBQ SCH ×2 (09:50→21:23)
[2017-05-30] MEDS ORDERED: Norco 10mg/325mg tab ORAL PRN ×2 (10:15)
[2017-05-30] MEDS ORDERED: HYDROmorphone 1mg/ml Carpuject SUBQ PRN (10:15)
[2017-05-30 12:01] VITALS: BP 94/57
--- NOTE | 2017-05-30 13:03 | General Progress Note ---
Assessment/Plan Problem List: (1) Abscess ICD Codes: L02.91 - Cutaneous abscess, unspecified SNOMED: 666934736 (2) Hidradenitis suppurativa ICD Codes: L73.2 - Hidradenitis suppurativa SNOMED: 97697041 (3) Hypokalemia ICD Codes: E87.6 - Hypokalemia SNOMED: 41877175 Status: stable Assessment/Plan Appreciate surgery rec's s/p radical excision of lower back tissue with with flap elevation and wound vac placement on 05/24/17 s/p near complete flap closure of lower back wound on 05/26/17 s/p completion closure of lower back wound on 05/29/17 Cont empiric IV ancef F/u cultures Post operative recommendations include: - encourage mobilization/ambulation - encourage incentive spirometry to optimize pulmonary hygiene - DVT/GI prophylaxis as appropriate--SCDs, HSQ - pain control, supportive care, bowel regimen Full Code A total of 31min of extra time was spent in addition to normal encounter time for care/coordination and counseling. D/w pt/family, RN, surgery regarding mgmt and dispo. D/w Dr. Cantu re postop rec's Subjective Date patient seen: May 30, 2017 Time patient seen: 13:02 ROS Limited/Unobtainable: No Constitutional: Reports: no symptoms HEENT: Reports: no symptoms Cardiovascular: Reports: no symptoms Respiratory: Reports: no symptoms Gastrointestinal/Abdominal: Reports: no symptoms Genitourinary: Reports: no symptoms Neurologic/Psychiatric: Reports: no symptoms Endocrine: Reports: no symptoms Hematologic/Lymphatic: Reports: no symptoms Allergies: Coded Allergies: No Known Allergies (Unverified , 01/26/17) Subjective No acute o/n events s/p completion closure of lower back wound POD#1 Pain controlled. Denies f/c, n/v, d/c, chest pain, SOB Ambulating Passing gas No further headache Objective Last 24 Hour Vital Signs Date Time Temp Pulse Resp B/P (MAP) Pulse Ox O2 Delivery O2 Flow Rate FiO2 05/30/17 09:00 98.6 59 21 120/59 95 Room Air 05/30/17 08:00 19 05/30/17 07:04 50 18 97 05/30/17 04:00 18 05/30/17 04:00 97.7 50 16 119/60 97 Room Air 05/30/17 00:00 18 05/29/17 20:00 18 05/29/17 20:00 97.7 72 18 114/60 96 Room Air 05/29/17 16:00 97.7 66 16 100/44 98 Room Air 05/29/17 16:00 19 05/29/17 13:30 97.2 67 17 114/61 97 Room Air Laboratory Tests 05/30/17 07:53: White Blood Count 9.1, Red Blood Count 3.85L, Hemoglobin 10.8L, Hematocrit 32.6L , Mean Corpuscular Volume 85, Mean Corpuscular Hemoglobin 28.0, Mean Corpuscular Hemoglobin Concent 33.1, Red Cell Distribution Width 14.6, Platelet Count 234, Mean Platelet Volume 7.1, Neutrophils (%) (Auto) 66.7, Lymphocytes (% ) (Auto) 24.7, Monocytes (%) (Auto) 7.6, Eosinophils (%) (Auto) 0.6, Basophils ( %) (Auto) 0.5, Sodium Level 141, Potassium Level 3.5, Chloride Level 107, Carbon Dioxide Level 26, Anion Gap 8, Blood Urea Nitrogen 9, Creatinine 0.8, Estimat Glomerular Filtration Rate > 60, Glucose Level 97, Calcium Level 9.0 Height (Feet): 5 Height (Inches): 7.00 Weight (Pounds): 140 Objective General: alert, cooperative, no distress, appears stated age Head: normocephalic, without obvious abnormality, atraumatic Eyes: conjunctivae/corneas clear. PERRL, EOM's intact Throat: lips, mucosa, and tongue normal. MMM Neck: supple, symmetrical, trachea midline, and no JVD Lungs: clear to auscultation bilaterally Heart: regular rate and rhythm, S1, S2 normal, no murmur, click, rub or gallop Abdomen: soft, non-tender, non-distended, bowel sounds normal; no masses or organomegaly Extremities: extremities normal, atraumatic, no cyanosis or edema Pulses: 2+ and symmetric Skin: dressing c/d/i Neurologic: grossly normal, no focal deficits Patsy Bajwa M.D. May 30, 2017 13:03
[2017-05-30 15:31] VITALS: BP 84/60
[2017-05-30 20:00] VITALS: BP 95/62
[2017-05-31] VITALS: BP 95/60
[2017-05-31] MEDS: ceFAZolin sod 1 GM in D5W 55 ML IVPB SCH ×3 (02:01→17:53)
[2017-05-31 04:44] VITALS: BP 90/50
[2017-05-31 08:00] VITALS: BP 111/53
[2017-05-31] MEDS: Heparin 5000 units/ml inj SUBQ SCH ×2 (08:48→21:18)
[2017-05-31] MEDS: Docusate 100mg cap ORAL SCH ×2 (09:00→18:00)
[2017-05-31 12:00] VITALS: BP 109/77
[2017-05-31 16:00] VITALS: BP 109/77
--- NOTE | 2017-05-31 16:51 | General Progress Note ---
Assessment/Plan Problem List: (1) Abscess ICD Codes: L02.91 - Cutaneous abscess, unspecified SNOMED: 570254749 (2) Hidradenitis suppurativa ICD Codes: L73.2 - Hidradenitis suppurativa SNOMED: 96384032 (3) Hypokalemia ICD Codes: E87.6 - Hypokalemia SNOMED: 70302482 (4) Acute blood loss anemia ICD Codes: D62 - Acute posthemorrhagic anemia SNOMED: 350902868 Status: stable Assessment/Plan Appreciate surgery rec's s/p radical excision of lower back tissue with with flap elevation and wound vac placement on 05/24/17 s/p near complete flap closure of lower back wound on 05/26/17 s/p completion closure of lower back wound on 05/29/17 Cont empiric IV ancef F/u cultures Post operative recommendations include: - encourage mobilization/ambulation - encourage incentive spirometry to optimize pulmonary hygiene - DVT/GI prophylaxis as appropriate--SCDs, HSQ - pain control, supportive care, bowel regimen DC planning for tomorrow Full Code A total of 33min of extra time was spent in addition to normal encounter time for care/coordination and counseling. D/w pt/family, RN, surgery regarding mgmt and dispo. D/w Dr. aCntu re postop rec's Subjective Date patient seen: May 31, 2017 Time patient seen: 16:50 ROS Limited/Unobtainable: No Constitutional: Reports: no symptoms HEENT: Reports: no symptoms Cardiovascular: Reports: no symptoms Respiratory: Reports: no symptoms Gastrointestinal/Abdominal: Reports: no symptoms Genitourinary: Reports: no symptoms Neurologic/Psychiatric: Reports: no symptoms Endocrine: Reports: no symptoms Hematologic/Lymphatic: Reports: no symptoms Allergies: Coded Allergies: No Known Allergies (Unverified , 01/26/17) All Systems: reviewed and negative except above Subjective No acute o/n events s/p completion closure of lower back wound POD#2 Pain controlled. Denies f/c, n/v, d/c, chest pain, SOB Ambulating Passing gas No further headache Objective Last 24 Hour Vital Signs Date Time Temp Pulse Resp B/P (MAP) Pulse Ox O2 Delivery O2 Flow Rate FiO2 05/31/17 08:00 97.6 79 19 111/53 98 Room Air 05/31/17 04:44 97.6 56 19 90/50 99 Room Air 05/31/17 00:00 97.3 63 19 95/60 97 Room Air 05/30/17 20:00 97.4 70 20 95/62 97 Room Air Height (Feet): 5 Height (Inches): 7.00 Weight (Pounds): 140 Objective General: alert, cooperative, no distress, appears stated age Head: normocephalic, without obvious abnormality, atraumatic Eyes: conjunctivae/corneas clear. PERRL, EOM's intact Throat: lips, mucosa, and tongue normal. MMM Neck: supple, symmetrical, trachea midline, and no JVD Lungs: clear to auscultation bilaterally Heart: regular rate and rhythm, S1, S2 normal, no murmur, click, rub or gallop Abdomen: soft, non-tender, non-distended, bowel sounds normal; no masses or organomegaly Extremities: extremities normal, atraumatic, no cyanosis or edema Pulses: 2+ and symmetric Skin: dressing c/d/i Neurologic: grossly normal, no focal deficits Patsy Bajwa M.D. May 31, 2017 16:51
[2017-05-31] MEDS ORDERED: HYDROCODON-ACE1 EA13 ORAL (16:56)
[2017-05-31] MEDS ORDERED: KEFLEX500 MG ORAL (16:56)
[2017-05-31 20:00] VITALS: BP_SYST 124; BP_SYST 148; BP_DIAS 69; BP_DIAS 79
[2017-06-01 00:57] VITALS: BP 116/64
[2017-06-01] MEDS: ceFAZolin sod 1 GM in D5W 55 ML IVPB SCH ×3 (02:15→09:15)
[2017-06-01 04:00] VITALS: BP 120/66
[2017-06-01 08:00] VITALS: BP 129/66
[2017-06-01] MEDS: Heparin 5000 units/ml inj SUBQ SCH ×2 (08:58→09:00)
[2017-06-01] MEDS: Docusate 100mg cap ORAL SCH (09:00)
[2017-06-01] MEDS ORDERED: Tubing IV Secondary IV ONE (11:29)
--- NOTE | 2017-06-01 13:44 | Discharge Summary ---
Discharge Summary Hospital Course Date of Admission May 23, 2017 at 15:18 Date of Discharge Jun 01, 2017 at 11:30 Admitting Diagnosis abscess Reason for Hospitalization: abscess HPI 26yo female with pmh of hidradenitis suppurative s/p surgery in February 2017 who presented after increased pain/swelling/discharge from her buttock area. Pt denies f/c, n/v, d/c, chest pain, SOB, abd pain, dysuria. Pt able to walk several blocks and climb several flights of stairs w/o chest pain or SOB. Consultations Plastic surgery Procedures s/p radical excision of lower back tissue with with flap elevation and wound vac placement on 05/24/17 s/p near complete flap closure of lower back wound on 05/26/17 s/p completion closure of lower back wound on 05/29/17 Hospital Course Pt was admitted and seen by surgery. She was continued on IV antibiotics. She underwent radical excision of lower back tissue with with flap elevation and wound vac placement on 05/24/17, followed by near complete flap closure of lower back wound on 05/26/17, and finally completed closure of lower back wound on 05/29. Once pain controlled and wounds stable, pt was discharge home on oral antibiotics and pain meds. Discharge Medications New Medications: Cephalexin* (Keflex*) 500 Mg Capsule 500 MG ORAL EVERY 6 HOURS for 7 Days, #28 CAP 0 Refills Hydrocodone Bit/Acetaminophen 10-325* (Hydrocodon-Acetaminophn 10-325*) 1 Each Tablet 2 EA ORAL Q4H PRN, #40 TAB Continued Medications: No Known Medications* (NKM - No Known Medications*) . 0 ., 0 Refills Discharge Condition Upon Discharge: stable Discharge Disposition Patient was discharged to Home (01) Discharge Diagnoses: (1) Abscess (2) Hidradenitis suppurativa (3) Hypokalemia (4) Acute blood loss anemia Patsy Bajwa M.D. Jun 01, 2017 13:44
== END 2017-06-01 11:30 | disposition home or self-care (01) | DRG 577 ==
LOC: EMR 15:03 → 3E 15:18 → EDBEDREQ 15:55
PROC: 0JB70ZZ Excision of Back Subcutaneous Tissue and Fascia, Open Approach (ICD-10-PCS; principal; 2017-05-24 13:00)
PROC: 2W15X6Z Compression of Back using Pressure Dressing (ICD-10-PCS; principal; 2017-05-24 13:00)
PROC: 0J870ZZ Division of Back Subcutaneous Tissue and Fascia, Open Approach (ICD-10-PCS; principal; 2017-05-24 13:00)
PROC: 0JD70ZZ Extraction of Back Subcutaneous Tissue and Fascia, Open Approach (ICD-10-PCS; 2017-05-26)
PROC: 2W15X6Z Compression of Back using Pressure Dressing (ICD-10-PCS; 2017-05-26)
PROC: 0JX90ZC Transfer Buttock Subcutaneous Tissue and Fascia with Skin, Subcutaneous Tissue and Fascia, Open Approach (ICD-10-PCS; 2017-05-26)
PROC: 0JD70ZZ Extraction of Back Subcutaneous Tissue and Fascia, Open Approach (ICD-10-PCS; 2017-05-29)
PROC: 0JX90ZC Transfer Buttock Subcutaneous Tissue and Fascia with Skin, Subcutaneous Tissue and Fascia, Open Approach (ICD-10-PCS; 2017-05-29)
DX: L05.01 Pilonidal cyst with abscess (principal); D62 Acute posthemorrhagic anemia; L73.2 Hidradenitis suppurativa; E87.6 Hypokalemia
CPT/HCPCS: 36415; 71010; 80048; 80053; 81001; 81025; 83735; 85025; 85610; 85730; 86850; 86900; 86901; 87040; 93005; 94003; 94150; 99285; J2250; J2405; J2710; J8499